=== PATIENT | female | born 1955 | race Caucasian/White ===

== ENCOUNTER 2021-10-26 07:57 | Outpatient (REF) | payer MEDICARE, SELFPAY ==
[2021-10-26 11:19] LABS: MANUAL DIFF FLAG NO
[2021-10-26 11:32] LABS: Basophils Absolute Auto 0.1 X10*3/uL (0.0-0.2); Basophils Percent Auto 0.9 % (0-2); Eosinophils Absolute Auto 0.1 X10*3/uL (0.0-0.4); Eosinophils Percent Auto 0.9 % (0-4); Hematocrit 41.2 % (37.0-47.0); Hemoglobin 13.1 g/dl (12.0-16.0); Imm Gran Abs Auto 0.03 X10*3/uL (0.00-0.03); Imm Gran Pct Auto 0.5 % (0.0-0.4); Lymphocytes Percent Auto 30.9 % (20-40); Mean Corpuscular HGB Conc 31.8 g/dl (31.0-35.0); Mean Corpuscular Hemoglobin 31.2 pg (27.0-33.0); Mean Corpuscular Volume 98.1 fL (80.0-98.0); Mean Platelet Volume 11.3 fL (9.4-12.3); Monocytes Absolute Auto 0.6 X10*3/uL (0.1-1.2); Monocytes Percent Auto 8.6 % (2-11); Neutrophils Absolute Auto 3.8 x10*3/uL (2.0-8.3); Neutrophils Percent Auto 58.2 % (45-73); Platelet Count 300 X10*3/uL (160-400); Red Cell Distribution Width 13.3 % (11.0-16.0); White Blood Count 6.6 X10*3/uL (4.8-10.8)
[2021-10-26 11:39] LABS: Appearance Urine Clear; Color Urine Yellow; Glucose Urine UA Negative (Negative); Leukocyte Esterase Urine Small (1+) (Negative); Nitrite Urine Negative (Negative); PH 5.5 (5.0-8.0); Specific Gravity - Urine 1.015 (1.005-1.025); Urine Blood Negative (Negative); Urine Ketones Negative (Negative); Urine Protein Negative (Neg-Trace)
[2021-10-26 11:44] LABS: Bacteria Urine None Seen (None Seen); Hyaline Casts Urine 0-2 /LPF (0-2); RBC Urine 0-2 /HPF (0-2); UACC Culture Trigger YES
[2021-10-26 12:07] LABS: Alanine Aminotransferase 25 U/L (0-31); Albumin Level 4.2 g/dL (3.5-5.0); Alkaline Phosphatase 112 U/L (39-117); Anion Gap 14 (12-20); Aspartate Amino Transferase 23 U/L (5-31); Bilirubin Total 1.1 mg/dL (0.0-1.0); Blood Urea Nitrogen 14 mg/dL (9-16); Calcium 9.2 mg/dL (8.4-10.2); Carbon Dioxide 25 mmol/L (22-29); Chloride 104 mmol/L (96-108); Cholesterol 184 mg/dL; Estimated Glomerular Filt Rate > 60; Glucose Fasting 93 mg/dL (60-99); HDL Cholesterol 59 mg/dL; LDL Cholesterol Calculated 104 mg/dl; Potassium 4.8 mmol/L (3.3-5.1); Sodium 138 mmol/L (135-145); Total Protein 6.8 g/dL (6.5-8.0); Triglycerides 106 mg/dL
[2021-10-26 12:10] LABS: TSH reflex Free T4 1.13 uIU/mL (0.32-4.0)
== END 2021-10-26 07:58 | disposition home or self-care (01) ==
LOC: HO.HMGCLDS 07:57
PROVIDERS: PCP Nurse Practitioner Family; Visit Provider Nurse Practitioner Family
DX: E78.5 Hyperlipidemia, unspecified (principal)
CPT/HCPCS: 36415; 80053; 80061; 81001; 84443; 85025; 87086

== ENCOUNTER → 2021-11-11 15:04 | Outpatient (REF) | payer MEDICARE, SELFPAY ==
--- NOTE | 2021-11-11 15:06 | CA_ITS ---
Transthoracic Echocardiogram Patient (Last, First, Middle): Mary Carmen Holbrook, Gender: Female Date of : 1955 Age: 66 Procedure Date: 11/11/2021 Procedure Type: Transthoracic Echocardiogram Location: OP Height: 154.94 cm Weight: 111.13 kg BSA: 2.06 m2 Heart Rate: 70 bpm BP: 115 / 65 mmHg Controls Project Engineer: SB Referring MD: Addi Reynoso [facility] Coremaker Supervisor: Dave Bronson MD Symptoms: R01.1 - Cardiac murmur, unspecified Study Quality: Technically Difficult/BSA ECG Rhythm: Sinus Conclusions: - 1. Normal LV systolic function with impaired relaxation filling pattern 2. Calcific aortic valve changes noted with increased gradient suggestive of early aortic stenosis 3. Severe mitral and calcification 4. No gross pericardial effusion Findings Left Ventricle Normal left ventricular size, thickness, and systolic function. The visually estimated ejection fraction is between 65-70%. Spectral Doppler is indicative of an impaired relaxation filling pattern. Right Ventricle Normal right ventricular cavity size and systolic function. Atria The left atrium is normal in size. There is no evidence of interatrial shunt. The right atrium is normal in size. Aortic Valve There is mild calcification of the aortic valve. The peak aortic gradient is 20 mmHg.The mean gradient is 11 mmHg. There is no aortic valve regurgitation. Mitral Valve There is mild anterior and severe posterior mitral leaflet thickening. There is severe mitral annular calcification. There is trace mitral valve regurgitation. There is no mitral valve stenosis. Pulmonic Valve The pulmonic valve was not well visualized. Tricuspid Valve The tricuspid valve was not well visualized. Tricuspid regurgitation envelope is inadequate for calculation of right ventricular systolic pressure. Normal right atrial pressure. Great Vessels The pulmonary artery was not well visualized. There is mild dilatation of the ascending aorta measuring 3.80 cm. Venous The inferior vena cava is normal in size and collapses greater than 50% with inspiration. Pericardium/Pleural There is no evidence of pericardial effusion. Prior Study Comparison No significant change compared to prior study dated: 09/25/2018. Measurements 2D Linear Measurements IVSd: 1.19 0.6-0.9/0.6-1.0 cm LVIDd: 3.99 3.9-5.3/4.2-5.9 cm LVIDd Index: 1.94 2.4-3.2/2.2-3.1 cm/m2 LVIDs: 2.65 2.0-3.6 cm LVPWd: 1.03 0.7-1.1 cm LA Diam: 4.00 2.7-3.8/3.0-4.0 cm LAIDs Index: 1.94 1.5-2.3 cm/m2 LV Mass: 183.00 67-162/88-224 g LV Mass Index: 88.84 43-95/49-115 g/m2 LVOT Diam: 2.40 3.0+(-)1.3 cm 2D Systolic Function EF 4C: 55.10 >55% EF 2C: 78.20 >55% EF BiP: 69.10 >55% Mitral Valve MV Pk E: 1.15 MV PK A: 1.18 MV Decel Time: 217.00 E/A: 1.00 E'Lateral: 7.07 E'Medial: 5.98 E/E' Med: 19.20 E/E' Lat: 16.30 PHT: 64.00 MVA PHT: 3.44 Decel Bacon: 5.31 Aortic Valve AoV Pk Dk: 2.23 AoV Mn Dk: 1.54 AoV VTI: 0.50 AoV Pk Grad: 20.00 Aov Mn Grad: 11.00 SAVI Cont.VTI: 2.81 LVOT LVOT Pk Dk: 1.53 LVOT Mn Dk: 1.08 LVOT VTI: 0.31 LVOT Pk Grad: 9.00 LVOT Mn Grad: 6.00 LVOT Diam: 2.40 LVOT Area: 4.52 Diastolic Function MV Pk E: 1.15 MV Pk A: 1.18 E/A: 1.00 E'Medial: 5.98 E/E' Med: 19.20 E' Laterial: 7.07 E/E' Lat: 16.30 Right Ventricle TAPSE (mm): 21.90 TVS' Dk: 12.40 Tricuspid Valve RA Press: 3.00 Great Vessels Aorta Sinus of Valsalva: 2.90 2.0-3.5 cm Ao Asc: 3.80 2.1-3.4 cm Ao Desc: 2.20 Pulmonary Veins Pulm Vein S/D 1.50 Pulmonary Valve PV Pk Dk: 0.87 Peak PV Grad: 3.00 Updated in Other Vendor System with Status of Final Dave Bronson MD electronically signed on 11/12/2021 11:45:05 AM with status of Final
== END ==
LOC: HO.CARD 15:04
PROVIDERS: PCP Nurse Practitioner Family; Visit Provider Nurse Practitioner Family
DX: R01.1 Cardiac murmur, unspecified (principal)
CPT/HCPCS: 93306

== ENCOUNTER 2022-02-18 07:33 | Outpatient (REF) | payer MEDICARE, SELFPAY ==
[2022-02-18 11:20] LABS: MANUAL DIFF FLAG NO
[2022-02-18 11:31] LABS: Appearance Urine Turbid; Color Urine Yellow; Glucose Urine UA Negative (Negative); Leukocyte Esterase Urine Trace (Negative); Nitrite Urine Negative (Negative); UMIC TRIGGER UACC YES; Urine Blood Negative (Negative); Urine Ketones Trace mg/dL (Negative); Urine Protein Negative (Neg-Trace)
[2022-02-18 11:40] LABS: Basophils Percent Auto 0.6 % (0-2); Eosinophils Percent Auto 0.5 % (0-4); Hematocrit 40.8 % (37.0-47.0); Hemoglobin 13.3 g/dl (12.0-16.0); Imm Gran Abs Auto 0.02 X10*3/uL (0.00-0.03); Imm Gran Pct Auto 0.3 % (0.0-0.4); Lymphocytes Percent Auto 31.6 % (20-40); Mean Corpuscular HGB Conc 32.6 g/dl (31.0-35.0); Mean Corpuscular Hemoglobin 31.7 pg (27.0-33.0); Mean Corpuscular Volume 97.4 fL (80.0-98.0); Monocytes Absolute Auto 0.6 X10*3/uL (0.1-1.2); Monocytes Percent Auto 8.8 % (2-11); Neutrophils Absolute Auto 3.6 x10*3/uL (2.0-8.3); Neutrophils Percent Auto 58.2 % (45-73); Platelet Count 315 X10*3/uL (160-400); Red Blood Count 4.19 X10*6/uL (4.20-5.50); White Blood Count 6.2 X10*3/uL (4.8-10.8)
[2022-02-18 11:43] LABS: Bacteria Urine None Seen (None Seen); Hyaline Casts Urine 0-2 /LPF (0-2); RBC Urine 0-2 /HPF (0-2); WBC Urine 0-5 /HPF (0-5)
[2022-02-18 13:07] LABS: Alanine Aminotransferase 28 U/L (0-31); Albumin Level 4.3 g/dL (3.5-5.0); Alkaline Phosphatase 110 U/L (39-117); Anion Gap 14 (12-20); Aspartate Amino Transferase 25 U/L (5-31); Bilirubin Total 1.3 mg/dL (0.0-1.0); Blood Urea Nitrogen 11 mg/dL (9-16); Calcium 9.3 mg/dL (8.4-10.2); Carbon Dioxide 24 mmol/L (22-29); Chloride 105 mmol/L (96-108); Cholesterol 175 mg/dL; Estimated Glomerular Filt Rate > 60; Glucose Fasting 96 mg/dL (60-99); HDL Cholesterol 60 mg/dL; LDL Cholesterol Calculated 95 mg/dl; Potassium 4.3 mmol/L (3.3-5.1); Sodium 139 mmol/L (135-145); TSH reflex Free T4 1.19 uIU/mL (0.32-4.0); Total Protein 6.9 g/dL (6.5-8.0); Triglycerides 100 mg/dL
== END 2022-02-18 07:34 | disposition home or self-care (01) ==
LOC: HO.HMGCLDS 07:33
PROVIDERS: PCP Nurse Practitioner Family; Visit Provider Nurse Practitioner Family
DX: E78.5 Hyperlipidemia, unspecified (principal)
CPT/HCPCS: 36415; 80053; 80061; 81001; 84443; 85025

== ENCOUNTER 2022-05-20 08:36 | Outpatient (REF) | payer MEDICARE, SELFPAY ==
--- NOTE | ~2022-05-20 | MM_ITS ---
EXAMINATION: BONE DENSITOMETRY CLINICAL INDICATION: Asymptomatic menopausal state. COMPARISON: None (current study represents initial baseline exam). TECHNIQUE: Using a YuMe DXA System (software version: 13.1) manufactured by [employer], dual-energy x-ray absorptiometry was performed of the lumbar spine and left hip. The images are of good technical quality. Summary results are attached. FINDINGS: AP SPINE L1-L4: BMD 0.984 g/cm2, Z-score -1.2, T-score -1.6, osteopenia. LEFT FEMUR, NECK: BMD 0.736 g/cm2, Z-score -1.4, T-score -2.2, osteopenia. LEFT FEMUR, TOTAL: BMD 0.890 g/cm2, Z-score -0.5, T-score -0.9, normal. IDENTIFIED RISK FACTORS: Height loss. Secondary osteoporosis (early menopause). HISTORY OF FRACTURE: None listed. MEDICATIONS: Calcium supplement and/or multivitamin. Vitamin D. MM/XR DEXA axial skeleton IMPRESSION: 1. DIAGNOSIS: Osteopenia based on the lowest T-score value of -2.2 in the femoral neck applying World Health Organization criteria. 2. 10-YEAR FRACTURE RISK PREDICTION, FRAX: Major osteoporotic fracture (clinical spine, forearm, hip or shoulder) 9.8%. Hip fracture 1.6%. 3. Treatment Recommendations: NOF guidelines recommend consideration for treatment in postmenopausal women and men age 50 and older presenting with the following: -A hip or vertebral (clinical or morphometric) fracture. -T-score less than or equal to -2.5 at the femoral neck or spine after appropriate evaluation to exclude secondary causes. -Low bone mass at the hip or spine and a 10-year fracture probability by FRAX of greater than or equal to 3% for hip fracture or greater than or equal to 20% for major osteoporotic fracture based on the [place] adapted WHO algorithm. 4. Other Recommendations: All treatment decisions require clinical judgment and consideration of individual patient factors, including patient preferences, comorbidities, previous drug use, risk factors not captured in the FRAX model (e.g. frailty, falls, vitamin D deficiency, increased bone turnover, interval significant decline in bone density) and possible under or overestimation of fracture risk by FRAX. Additional medical evaluation for secondary cause of low bone mineral density may be appropriate. FUTURE SCAN RECOMMENDATION: People with diagnosed cases of osteoporosis or at high risk for fracture should have regular bone mineral density tests. For patients eligible for Medicare, routine testing is allowed once every 2 years. The testing frequency can be increased to one year for patients who have rapidly progressing disease, those who are receiving or discontinuing medical therapy to restore bone mass, or have additional risk factors.
== END 2022-05-20 08:37 | disposition home or self-care (01) ==
LOC: HO.MAMMO 08:36
PROVIDERS: PCP Nurse Practitioner Family; Visit Provider Nurse Practitioner Family
DX: Z13.820 Encounter for screening for osteoporosis (principal); Z78.0 Asymptomatic menopausal state
CPT/HCPCS: 77080

== ENCOUNTER → 2022-06-30 09:33 | Outpatient (BNVA) | payer MEDICARE, SELFPAY | PROVIDERS: PCP Nurse Practitioner Family; Visit Provider Physician Assistant | DX: Z12.11 Encounter for screening for malignant neoplasm of colon (principal) | CPT/HCPCS: 99202 ==

== ENCOUNTER 2022-07-08 09:03 | Outpatient (REF) | payer MEDICARE, SELFPAY ==
[2022-07-08 11:12] LABS: MANUAL DIFF FLAG NO
[2022-07-08 11:25] LABS: Appearance Urine Clear; Color Urine Yellow; Glucose Urine UA Negative (Negative); Leukocyte Esterase Urine Negative (Negative); Nitrite Urine Negative (Negative); PH 5.5 (5.0-9.0); Specific Gravity - Urine 1.025 (1.005-1.025); Urine Blood Negative (Negative); Urine Ketones Negative (Negative); Urine Protein Negative (Neg-Trace)
[2022-07-08 11:32] LABS: Basophils Absolute Auto 0.1 X10*3/uL (0.0-0.2); Basophils Percent Auto 0.7 % (0-2); Eosinophils Percent Auto 0.4 % (0-4); Hematocrit 41.9 % (37.0-47.0); Hemoglobin 13.2 g/dl (12.0-16.0); Imm Gran Abs Auto 0.02 X10*3/uL (0.00-0.03); Imm Gran Pct Auto 0.3 % (0.0-0.4); Lymphocytes Absolute Auto 2.3 X10*3/uL (1.2-4.9); Lymphocytes Percent Auto 32.2 % (20-40); Mean Corpuscular HGB Conc 31.5 g/dl (31.0-35.0); Mean Corpuscular Hemoglobin 31.4 pg (27.0-33.0); Mean Corpuscular Volume 99.8 fL (80.0-98.0); Mean Platelet Volume 11.3 fL (9.4-12.3); Monocytes Absolute Auto 0.6 X10*3/uL (0.1-1.2); Monocytes Percent Auto 8.3 % (2-11); Neutrophils Absolute Auto 4.2 x10*3/uL (2.0-8.3); Neutrophils Percent Auto 58.1 % (45-73); Platelet Count 308 X10*3/uL (160-400); Red Cell Distribution Width 13.2 % (11.0-16.0); White Blood Count 7.2 X10*3/uL (4.8-10.8)
[2022-07-08 12:50] LABS: Alanine Aminotransferase 23 U/L (0-31); Albumin Level 4.2 g/dL (3.5-5.0); Alkaline Phosphatase 104 U/L (39-117); Anion Gap 15 (12-20); Aspartate Amino Transferase 19 U/L (5-31); Blood Urea Nitrogen 13 mg/dL (9-16); Calcium 9.1 mg/dL (8.4-10.2); Carbon Dioxide 25 mmol/L (22-29); Chloride 107 mmol/L (96-108); Cholesterol 175 mg/dL; Estimated Glomerular Filt Rate > 60; Glucose Fasting 92 mg/dL (60-99); HDL Cholesterol 56 mg/dL; LDL Cholesterol Calculated 102 mg/dl; Potassium 4.9 mmol/L (3.3-5.1); Sodium 142 mmol/L (135-145); Total Protein 6.7 g/dL (6.5-8.0); Triglycerides 87 mg/dL
[2022-07-08 12:53] LABS: TSH reflex Free T4 1.47 uIU/mL (0.32-4.0); Vitamin D 25-OH Total 47.3 ng/mL (>30)
== END 2022-07-08 09:04 | disposition home or self-care (01) ==
LOC: HO.HMGCLDS 09:03
PROVIDERS: PCP Nurse Practitioner Family; Visit Provider Nurse Practitioner Family
DX: E78.5 Hyperlipidemia, unspecified (principal); Z78.0 Asymptomatic menopausal state; E55.9 Vitamin D deficiency, unspecified
CPT/HCPCS: 36415; 80053; 80061; 81003; 82306; 84443; 85025

== ENCOUNTER 2022-11-09 09:30 | Outpatient (AMB) | payer MEDICARE, SELFPAY ==
--- NOTE | 2022-11-09 09:37 | A.OFFPC_ITS ---
Vital Signs 11/09/22 09:38 Height 5 ft 3 in Weight 270 lb 2 oz BMI 47.8 BP 138/84 Blood Pressure Location Lt brachial Position Sitting Pulse 76 Pulse Source Pulse Oximeter Pulse Oximetry (%) 98 Oxygen Delivery Method Room Air Intake Visit Reasons: 6m HTN Intake Note: pt is here for a 6 month follow up for HTN Allergies white faced hornets Allergy (Unknown, Uncoded 11/09/22 09:51) anaphylaxis Medication List - Last Reconciled 11/09/22 by SHANAE Corea albuterol sulfate 90 mcg/actuation (Ventolin HFA) 2 puffs inhalation Q6H PRN atorvastatin 40 mg PO BEDTIME biotin 10 mg PO DAILY bisacodyl (Dulcolax (bisacodyl)) 10 mg (2 x 5 mg) PO ONCE 1 day calcium carbonate-vitamin D3 600 mg-12.5 mcg (500 unit) (Calcium 600 with Vitamin D3) 1 cap PO BID 90 days levothyroxine 88 mcg PO DAILY polyethylene glycol 3350 (Miralax) 238 grams PO ONCE PRN 1 day Tobacco use date assessed: 11/09/22 Fall risk assessment: No Falls in past year Last assessed Fall Risk: 11/09/22 Dental Screening Dental Screen Date: 11/09/22 Did you have a dental visit in the last 12 months?: No Did you have a dental problem in the last 6 months where you did not have access to dental care?: No Was dental information given to patient?: No HPI 6m HTN HPI Details Dyslipisemia: Managed with atorvastatin 40mg. Will order labs. Denies chest pain, shortness of breath, and dizziness. Pt also reports weight gain. She states that she is eating well and drinks plenty of water. Will have pt utilize a food diary and check labs (thyroid). [facility] Medical History COVID-19 Sleep apnea Social History Housing: Condominium Patient Tobacco Use Status: Former Tobacco user Quit Date: quit 40 years ago e-Cigarette/Vaping Use: Never Used Second Hand Smoke Exposure: No service: No 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al status: employed and retired 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: [employer] 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al exposures/hazards: Yes Cognitive needs: No Hearing needs: No Vision needs: No Questionnaire Thrive Questionnaire Date Thrive assessed: 10/06/21 QUAN-7 AMB Questionnaire QUAN-7 Date QUAN - 7 assessed: 10/06/21 Source: Developed by Drs. J Luis Kern, Fara Harmon, Lamont Lerma and colleagues, with an educational gwen from [employer]. Review of Systems Const Reports as per HPI Physical exam (Primary Care) Vital Signs: Last Vital Signs Pulse 76 11/09/22 09:38 BP 138/84 11/09/22 09:38 Pulse Ox 98 11/09/22 09:38 Oxygen Delivery Method Room Air 11/09/22 09:38 BMI result Body Mass Index 47.8 Tobacco/Smoking Status: Tobacco use Status Tobacco use date assessed 11/09/22 11/09/22 09:45 Patient Tobacco Use Status Former Tobacco user 11/09/22 09:45 e-Cigarette/Vaping Use Never Used 11/09/22 09:45 Thrive Assessment: Date of Thrive Assessment Date Thrive assessed 10/06/21 11/09/22 09:45 Const General: cooperative Nutritional Appearance: obese morbidly obese Orientation/consciousness: patient oriented x3 Resp Effort & Inspection: normal respiratory effort Auscultation: clear to auscultation bilaterally Cardio Rate: regular rate Rhythm: regular rhythm Heart sounds: S1 normal heart sound present and S2 normal heart sound present Neuro General: patient oriented x3 Psych Appearance: grossly normal Mental Status: mental status grossly normal Speech and movement: Normal speech and movement present Affect: normal affect Attitude: cooperative Thought process: Normal thought process present Thought content: Normal thought content present Insight: Good insight present (Psych) Judgement: Good judgement present (Psych) Assessment and Plan Assessment & Plan (1) Obesity: Code(s): E66.9 - Obesity, unspecified (2) Dyslipidemia: Code(s): E78.5 - Hyperlipidemia, unspecified Plan The patient agreed to the use of a outside medical sales representative for this encounter. Scribed for SHANAE Fuller by Nayely Mehta outside medical sales representative, on 11/09/2022 at 09:55 EST. Orders: Orders Comprehensive Hassell. Panel Fast Today E66.9 - Obesity, unspecified, E78.5 - Hyperlipidemia, unspecified Lipid Panel Today E66.9 - Obesity, unspecified, E78.5 - Hyperlipidemia, unspecified TSH reflex Free T4 Today E66.9 - Obesity, unspecified, E78.5 - Hyperlipidemia, unspecified Complete Blood Count Auto Diff Today E66.9 - Obesity, unspecified, E78.5 - Hyperlipidemia, unspecified UA CC w/rflx Micro + Cult Today E66.9 - Obesity, unspecified, E78.5 - Hyperlipidemia, unspecified Coding Level of Care Code Est Pt Level 3 (85501) Diagnoses Obesity E66.9 Dyslipidemia E78.5
[2022-11-09 09:38] VITALS: BP 138/84; PULSE 76; O2SAT 98; BMI 47.8
== END 2022-11-09 10:05 | disposition home or self-care (01) ==
PROVIDERS: Visit Provider Nurse Practitioner Family
DX: E78.5 Hyperlipidemia, unspecified (principal); E66.9 Obesity, unspecified; Z68.42 Body mass index [BMI] 45.0-49.9, adult
CPT/HCPCS: 99213

== ENCOUNTER 2022-12-21 07:38 | Outpatient (REF) | payer MEDICARE, SELFPAY ==
[2022-12-21 11:33] LABS: MANUAL DIFF FLAG NO
[2022-12-21 11:55] LABS: Basophils Percent Auto 0.6 % (0-2); Eosinophils Percent Auto 0.5 % (0-4); Hematocrit 41.9 % (37.0-47.0); Hemoglobin 13.4 g/dl (12.0-16.0); Imm Gran Abs Auto 0.03 X10*3/uL (0.00-0.03); Imm Gran Pct Auto 0.5 % (0.0-0.4); Lymphocytes Absolute Auto 1.9 X10*3/uL (1.2-4.9); Lymphocytes Percent Auto 30.2 % (20-40); Mean Corpuscular Hemoglobin 32.4 pg (27.0-33.0); Mean Corpuscular Volume 101.2 fL (80.0-98.0); Mean Platelet Volume 11.5 fL (9.4-12.3); Monocytes Absolute Auto 0.5 X10*3/uL (0.1-1.2); Monocytes Percent Auto 8.2 % (2-11); Neutrophils Absolute Auto 3.8 x10*3/uL (2.0-8.3); Platelet Count 294 X10*3/uL (160-400); Red Blood Count 4.14 X10*6/uL (4.20-5.50); Red Cell Distribution Width 13.1 % (11.0-16.0); White Blood Count 6.4 X10*3/uL (4.8-10.8)
[2022-12-21 12:04] LABS: Appearance Urine Clear; Color Urine Yellow; Glucose Urine UA Negative (Negative); Leukocyte Esterase Urine Moderate (2+) (Negative); Nitrite Urine Negative (Negative); PH 5.5 (5.0-9.0); Specific Gravity - Urine 1.015 (1.005-1.025); UMIC TRIGGER UACC YES; Urine Blood Negative (Negative); Urine Ketones Negative (Negative); Urine Protein Negative (Neg-Trace)
[2022-12-21 12:08] LABS: Bacteria Urine None Seen (None Seen); Hyaline Casts Urine 0-2 /LPF (0-2); RBC Urine 0-2 /HPF (0-2); UACC Culture Trigger YES
[2022-12-21 12:27] LABS: Alanine Aminotransferase 31 U/L (0-31); Albumin Level 4.3 g/dL (3.5-5.0); Alkaline Phosphatase 94 U/L (39-117); Anion Gap 15 (12-20); Aspartate Amino Transferase 27 U/L (5-31); Bilirubin Total 1.1 mg/dL (0.0-1.0); Blood Urea Nitrogen 13 mg/dL (9-16); Calcium 9.6 mg/dL (8.4-10.2); Carbon Dioxide 23 mmol/L (22-29); Chloride 106 mmol/L (96-108); Cholesterol 176 mg/dL (<200); Estimated Glomerular Filt Rate > 60; Glucose Fasting 95 mg/dL (60-99); HDL Cholesterol 59 mg/dL (>40); LDL Cholesterol Calculated 94 mg/dL (<100); Potassium 4.3 mmol/L (3.3-5.1); Sodium 140 mmol/L (135-145); TSH reflex Free T4 1.32 uIU/mL (0.32-4.0); Total Protein 7.3 g/dL (6.5-8.0); Triglycerides 118 mg/dL (<150)
== END 2022-12-21 07:39 | disposition home or self-care (01) ==
LOC: HO.HMGCLDS 07:38
PROVIDERS: PCP Nurse Practitioner Family; Visit Provider Nurse Practitioner Family
DX: E66.9 Obesity, unspecified (principal); E78.5 Hyperlipidemia, unspecified; R30.0 Dysuria
CPT/HCPCS: 36415; 80053; 80061; 81001; 81003; 84443; 85025; 87086

== ENCOUNTER 2023-01-25 07:31 | Day surgery (SDC) | payer MEDICARE, SELFPAY ==
[2023-01-21 10:55] VITALS: BMI 47.1
--- NOTE | 2023-01-24 10:30 | P.CONAN_ITS ---
Documented by User: Elizabeth Rivera NP 01/24/23 10:34 HPI - Anesthesia Eval Consult details Narrative: 67yo F for Colonoscopy PMFSH Active Problems Active Problems: All Active Problems (Updated 05/11/22 @ 09:16 by Addi Reynoso, [facility]) Postmenopause (Acute) Screening for colon cancer (Acute) Aortic stenosis (Acute) Obesity (Acute) Systolic murmur (Acute) Dyslipidemia (Acute) Past Medical History Medical History Sleep apnea COVID-19 Social History [facility] Patient Tobacco Use Status: Former Tobacco user Quit Date: quit 40 years ago e-Cigarette/Vaping Use: Never Used Second Hand Smoke Exposure: No Use of substances other than those prescribed or required for medical reasons: No Are you DNR?: No Advance Directives: No Advance Directives Information Provided: Yes service: No 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al status: employed and retired 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: [employer] services 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al exposures/hazards: Yes Cognitive needs: No Hearing needs: No Vision needs: No Meds Allergies Allergy/AdvReac Type Severity Reaction Status Date / Time white faced hornets Allergy Unknown anaphylaxis Uncoded 11/09/22 09:51 Home Medications Medication Instructions Recorded Confirmed Last Taken Type biotin 5 mg capsule 10 mg PO DAILY 11/09/22 11/09/22 Unknown History Exam Height,Weight and Vital Signs: Height 5 ft 3 in Weight 120.656 kg Pertinent Lab Results Pertinent Lab Results: Laboratory Tests 12/21/22 07:46 WBC 6.4 Hgb 13.4 Hct 41.9 Plt Count 294 Sodium 140 Potassium 4.3 Chloride 106 Carbon Dioxide 23 BUN 13 Creatinine 0.72 Narrative Narrative: ECHO 2021 Conclusions: - 1. Normal LV systolic function with impaired relaxation filling pattern 2. Calcific aortic valve changes noted with increased gradient suggestive of early aortic stenosis 3. Severe mitral and calcification 4. No gross pericardial effusion Assessment and Plan Assessment Anesthesia Assessment: Chart Reviewed Documented by User: Lena Flood MD 01/25/23 08:42 PMFSH Past Medical History Medical History Sleep apnea COVID-19 Family History Family history of problems with anesthesia: No Surgical History History of Problems with Anesthesia: No Social History Social History Housing: [facility] Patient Tobacco Use Status: Former Tobacco user Quit Date: quit 40 years ago e-Cigarette/Vaping Use: Never Used Second Hand Smoke Exposure: No Use of substances other than those prescribed or required for medical reasons: No Are you DNR?: No Advance Directives: No Advance Directives Information Provided: Yes service: No 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al status: employed and retired 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: [employer] services 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al exposures/hazards: Yes Cognitive needs: No Hearing needs: No Vision needs: No Meds Allergies Allergy/AdvReac Type Severity Reaction Status Date / Time white faced hornets Allergy Unknown anaphylaxis Uncoded 11/09/22 09:51 Home Medications Medication Instructions Recorded Confirmed Last Taken Type biotin 5 mg capsule 10 mg PO DAILY 11/09/22 11/09/22 Unknown History Exam Airway Mallampati Class: III TM Dist: >3cm Neck ROM: Limited Heart: rrr Lungs: cta Assessment and Plan Assessment Anesthesia Assessment: Anesthesia Plan Discussed Final Anesthetic Review Family History of Problems with Anesthesia: No History of Problems with Anesthesia: No NPO: Yes ASA Class: III Final Preanesthetic Review: No Changes in Pt Med Stat, Meds/Allgs Chart Reviewed, Consent Obtained/Reviewed and Anes Risks/Benef Reviewed Patient Risk: Intermediate Procedure Risk: Low Anesthetic Plan Anesthetic Plan: MAC: Disposition: Standard PACU
[2023-01-25 08:15] VITALS: BMI 46.2
[2023-01-25 08:18] VITALS: BP 142/85; PULSE 68; RESP 16; TEMP 36.8; O2SAT 97
--- NOTE | 2023-01-25 08:36 | MHC.SHP ---
Pre-Procedural Eval Section A Date of Service: 01/25/23 Section B Chief Complaint: Encounter for screening for malignant neoplasm Relevant Family History (Specify if Yes): No Relevant Social History: None Present Medications: see Short Stay Collaborative assessment Medical History: Significant History (COVID-19 Sleep apnea, aortic stenosis ) History of Previous Operations: Relevant previous surgery/procedure and date(s) (tubal ligation) Allergies: Allergies Allergy/AdvReac Type Severity Reaction Status Date / Time white faced hornets Allergy Unknown anaphylaxis Uncoded 11/09/22 09:51 Review of Systems Sugical H&P ROS: Negative: Constitution, Cardiovascular, Respiratory, Neurological, Psychiatric, Hem-Onc, Allergic/Immunologic, Gastrointestinal, Genitourinary, Musculoskeletal, Integumentary, Endocrine and Eyes/Ears/Nose/Throat Exam Surgical H&P Exam: Normal: HEENT, Normal: Lungs, Normal: Extremities, Normal: Abdomen, Normal: Skin and Normal: Neurological and Significant Findings: Heart (murmur) Plan Diagnosis/Plan: Unchanged I have reviewed the history and physical and performed a pertinent physical examination on my patient. No changes have occurred unless specified. Time Spent With Patient Time: Total time managing care of this patient today ____ minutes.
--- NOTE | 2023-01-25 09:10 | P.OP_ITS ---
Operative Note Operative Note Date of Service: 01/25/23 Narrative: Operative Information Procedure Description: Colonoscopy Indication: screening Anesthesia: MAC COLONOSCOPY Instrument: Olympus variable stiffness pediatric scope 190L Colonoscopy Monitoring: Vital signs and clinical assessment, continuous EKG monitoring, Pulse oximetry, Carbon Dioxide monitoring and blood pressure monitoring were done throughout the procedure. Colon withdrawal time was 12 minutes. Procedure: The patient was placed in the left lateral decubitis position and pre-procedure medications were administered. After a digital rectal examination of the ano-rectum, the video colonoscope was inserted into the rectum and advanced through the colon to the cecum/TI. The colonoscope was slowly withdrawn in a retrograde panoramic fashion and the colon mucosa was carefully examined including a retroflexed view of the rectum. Findings and interventions are described below. Procedure Difficulty: easy Findings: Terminal Ileum-normal Melanosis coli noted Cecum: flat polyp 5-6 mm removed with cold forceps Ascending Colon: normal Transverse Colon -normal Descending Colon:normal Sigmoid Colon:mild diverticulosis, 3-5 mm sessile polyp removed with cold forceps Rectum: Retroflexion with small internal hemorrhoids, grade I Anorectum - normal Colon preparation: [place] Bowel Preparation Scale Right colon; 2 Transverse colon: 2 Left colon; 3 (0 = Unprepared colon segment with mucosa not seen due to solid stool that cannot be cleared. 1 = Portion of mucosa of the colon segment seen, but other areas of the colon segment not well seen due to staining, residual stool and/or opaque liquid. 2 = Minor amount of residual staining, small fragments of stool and/or opaque liquid, but mucosa of colon segment seen well. 3 = Entire mucosa of colon segment seen well with no residual staining, small fragments of stool or opaque liquid) Impression and Post Procedure Diagnosis: polyps internal hemorrhoids diverticular disease melanosis coli Plan: High fiber diet leaflet Avoid straining at stool, epsom salts and sitz bath, anusol supps or cream Repeat Colonoscopy in 5-7 years if adenomatous polyps, 10 yrs if hyperplastic or earlier if clinically indicated Above findings were reviewed with the patient and relevant handouts were provided if indicated.
[2023-01-25 09:15] VITALS: BP 138/70; PULSE 63; RESP 20; TEMP 36.1; O2SAT 97
[2023-01-25 09:30] VITALS: BP 147/80; PULSE 61; RESP 20; TEMP 36.1; O2SAT 97
== END 2023-01-25 11:27 | disposition home or self-care (01) ==
PROVIDERS: PCP Nurse Practitioner Family; Visit Provider Internal Medicine Gastroenterology
PROC: 0DJD8ZZ Inspection of Lower Intestinal Tract, Via Natural or Artificial Opening Endoscopic (ICD-10-PCS; CPT 45378; principal; 2023-01-25 09:10)
DX: Z12.11 Encounter for screening for malignant neoplasm of colon (principal); D12.5 Benign neoplasm of sigmoid colon; K63.89 Other specified diseases of intestine; K57.30 Diverticulosis of large intestine without perforation or abscess without bleeding; K64.0 First degree hemorrhoids; E78.5 Hyperlipidemia, unspecified; I35.0 Nonrheumatic aortic (valve) stenosis; R01.1 Cardiac murmur, unspecified; Z87.891 Personal history of nicotine dependence; G47.33 Obstructive sleep apnea (adult) (pediatric); E66.9 Obesity, unspecified; Z68.42 Body mass index [BMI] 45.0-49.9, adult; Z79.899 Other long term (current) drug therapy
CPT/HCPCS: 45380; 88305; J2704

== ENCOUNTER → 2023-01-25 07:31 | Outpatient (BNV) | payer MEDICARE, SELFPAY | PROVIDERS: PCP Nurse Practitioner Family; Visit Provider Internal Medicine Gastroenterology | DX: Z12.11 Encounter for screening for malignant neoplasm of colon (principal); D12.0 Benign neoplasm of cecum; D12.5 Benign neoplasm of sigmoid colon; K64.0 First degree hemorrhoids; K63.89 Other specified diseases of intestine; K57.30 Diverticulosis of large intestine without perforation or abscess without bleeding | CPT/HCPCS: 45380 ==

== ENCOUNTER 2023-02-09 08:43 | Outpatient (AMB) | payer MEDICARE, SELFPAY ==
--- NOTE | 2023-02-09 08:51 | MHC.OFFVIS ---
Intake Vital Signs 02/09/23 08:52 Height 5 ft 3 in Weight 255 lb BMI 45.2 BP 126/96 H Blood Pressure Location Lt brachial Position Sitting Pulse 91 Intake Visit Reasons: s/p colon Jung Intake Note: Patient follow up for Colonoscopy results. Patient denies any GI issues. Accounts Receivable Manager Required: No Accompanied by: Self / Same As Patient Allergies white faced hornets Allergy (Unknown, Uncoded 11/09/22 09:51) anaphylaxis HPI HPI Comments History of Present Illness Details A 67 y/o female f/u after colonoscopy, tolerated well she has no GI concerns Reviewed procedure report, pathology and recommendations Discussing findings melanosiscoli-she was drinking elder cox juice that Dr. Jung recommended she not drink daily, she has followed his advice She has good appetite, normal bowel pattern No nausea, vomiting, hematemesis, hematochezia fever chills PFSH Medical History (Updated 02/09/23 @ 09:46 by Lotus Gtz PA-C) Sleep apnea COVID-19 Surgical History Hx of colonoscopy Social History Housing: [facility] Patient Tobacco Use Status: Former Tobacco user Quit Date: quit 40 years ago e-Cigarette/Vaping Use: Never Used Second Hand Smoke Exposure: No service: No 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al status: employed and retired 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al exposures/hazards: Yes Cognitive needs: No Hearing needs: No Vision needs: No Review of Systems Const All systems reviewed & are unremarkable except as noted in HPI and below Card Denies chest pain and Denies dyspnea Resp Denies dyspnea Physical Exam Vital Signs: Last Vital Signs Pulse 91 02/09/23 08:52 BP 126/96 H 02/09/23 08:52 BMI result Body Mass Index 45.2 Const General: cooperative, healthy appearing and no acute distress Orientation/consciousness: patient oriented x3 Limitations: no limitations Eyes Sclerae: sclerae normal Resp Effort & Inspection: normal respiratory effort and able to speak in complete sentences Skin General skin exam: no rashes or lesions noted Neuro General: patient oriented x3 Extrem General: Yes full ROM Psych Appearance: well kempt Speech and movement: Clear speech present Affect: normal affect Attitude: cooperative Thought process: Normal thought process present Thought content: Normal thought content present Results Reviewed Results Reviewed: Impression and Post Procedure Diagnosis: polyps internal hemorrhoids diverticular disease melanosis coli Plan: High fiber diet leaflet Avoid straining at stool, epsom salts and sitz bath, anusol supps or cream Repeat Colonoscopy in 5-7 years if adenomatous polyps, 10 yrs if hyperplastic or earlier if clinically indicated Name: Mary Carmen Holbrook Age/Sex: 67/F Attending: Enzo Jung MD : 1955 Submitted by: Enzo Jung MD [facility] #: [id number] Status: [facility] Collected: 01/25/23 Location: [facility] Received: 01/25/23 Diagnosis Colon, cecal polyp: Serrated polyp without dysplasia, cannot exclude sessile serrated lesion/polyp. Colon, sigmoid, polyp: Tubular adenoma; negative for high-grade dysplasia and carcinoma. Comment: Both biopsies have focal lamina propria pigmented macrophages consistent with melanosis coli. Clinical History Pre-Op Dx: Melanosis, screening Post-Op Dx: Melanosis coli, hemorrhoids, diverticulosis, polyps Microscopic Description Microscopic sections reviewed. Material Received A. Cecum polypectomy B. Sigmoid colon polyp Gross Description Received in 2 parts. Part A: Received in formalin labeled ?cecum polypectomy? are 2 pizarro-pink irregular tissue fragments measuring 0.1 and 0.2 cm, submitted in toto in a cassette labeled A. Part B: Received in formalin labeled ?sigmoid colon polyp? are 2 pizarro-pink irregular tissue fragments measuring 0.15 and 0.25 cm, submitted in toto in a cassette labeled B. CEDS Copies To Addi Reynoso [address] [facility] [address], [place] [id number] Enzo Jung MD Patient: Mary Carmen Holbrook Age/Sex: 67/F MR#: [id number] Page 1 of 2 Assessment & Plan Assessment & Plan (1) Sessile serrated polyp of colon: Comment: A very pleasant 67-year-old female follows up after recent colonoscopy with polypectomy Code(s): D12.6 - Benign neoplasm of colon, unspecified Plan: 5 year repeat (2) Tubular adenoma of colon: Code(s): D12.6 - Benign neoplasm of colon, unspecified Plan: Repeat 5 year asymptomatic colonoscopy Plan Repeat asymptomatic colonoscopy 5 Stay well hydrated High-fiber diet Patient Instructions: 5 year colon HFD Maintain well hydration Diverticulosis / diverticulitis ER protocol reviewed Coding Level of Care Code Est Pt Level 3 (01535) Diagnoses Sessile serrated polyp of colon D12.6 Tubular adenoma of colon D12.6 Time Spent (min) 30
[2023-02-09 08:52] VITALS: BP 126/96; PULSE 91; BMI 45.2
== END 2023-02-09 10:25 | disposition home or self-care (01) ==
PROVIDERS: PCP Nurse Practitioner Family; Visit Provider Physician Assistant
DX: D12.6 Benign neoplasm of colon, unspecified (principal)
CPT/HCPCS: 99213

== ENCOUNTER → 2023-02-09 08:43 | Outpatient (BNVA) | payer MEDICARE, SELFPAY | PROVIDERS: PCP Nurse Practitioner Family; Visit Provider Physician Assistant | DX: D12.6 Benign neoplasm of colon, unspecified (principal) | CPT/HCPCS: 99212 ==

== ENCOUNTER 2023-03-09 08:46 | Outpatient (AMB) | payer MEDICARE, SELFPAY ==
--- NOTE | 2023-03-09 08:53 | MHC.PC.OV ---
Vital Signs 03/09/23 08:54 Height 5 ft 3 in Weight 265 lb 4 oz BMI 47.0 BP 130/80 Blood Pressure Location Rt brachial Position Sitting Pulse 68 Pulse Source Pulse Oximeter Pulse Oximetry (%) 98 Oxygen Delivery Method Room Air Intake Visit Reasons: Annual PE Intake Note: Patient here for physical exam. no new issues or concerns. Allergies white faced hornets Allergy (Unknown, Uncoded 03/09/23 08:55) anaphylaxis Medication List - Last Reconciled 03/09/23 by SHANAE Corea albuterol sulfate 90 mcg/actuation (Ventolin HFA) 2 puffs inhalation Q6H PRN atorvastatin 40 mg PO BEDTIME biotin 10 mg PO DAILY calcium carbonate-vitamin D3 600 mg-12.5 mcg (500 unit) (Calcium 600 with Vitamin D3) 1 cap PO BID 90 days levothyroxine 88 mcg PO DAILY lorazepam 0.5 mg PO BEDTIME PRN Tobacco use date assessed: 03/09/23 Fall risk assessment: No Falls in past year Last assessed Fall Risk: 03/09/23 Dental Screening Dental Screen Date: 03/09/23 Did you have a dental visit in the last 12 months?: No Did you have a dental problem in the last 6 months where you did not have access to dental care?: No Was dental information given to patient?: Patient has dentist HPI Annual PE HPI Details pt is here for a PE. Colon screen is up to date. Pt has a mammo scheduled. Pt wears a cpap, using it nightly. Bone density is up to date. Pt has really been working on her diet, keeping a food diary. Will have her cut back on morning sausage consumption, will refer to nutrition for dietary assistance (for weight loss). [facility] Medical History Sleep apnea COVID-19 Surgical History Hx of colonoscopy Social [facility] Tobacco Use Status: Former Tobacco user Quit Date: quit 40 years ago e-Cigarette/Vaping Use: Never Used Second Hand Smoke Exposure: No service: No 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al status: employed and retired 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: [employer] 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al exposures/hazards: Yes Cognitive needs: No Hearing needs: No Vision needs: No Questionnaire PHQ-9 Over the last 2 weeks, how often have you been bothered by any of the following problems? 1. Little interest or pleasure in doing things: not at all 2. Feeling down, depressed, or hopeless: not at all 3. Trouble falling or staying asleep, or sleeping too much: not at all 4. Feeling tired or having little energy: not at all 5. Poor appetite or overeating: not at all 6. Feeling bad about yourself - or that you are a failure or have let yourself or your family down: not at all 7. Trouble concentrating on things, such as reading the newspaper or watching television: not at all 8. Moving or speaking so slowly that other people could have noticed. Or the opposite - being so fidgety or restless that you have been moving around a lot more than usual: not at all 9. Thoughts that you would be better off or of hurting yourself in some way: not at all Total score: 0 Depression Screening Interpretation: Negative Depression Screening Done: Yes 38331 - PHQ-9 Billing: Yes Source: Developed by Drs. J Luis Kern, Fara Harmon, Lamont Lerma and colleagues, with an educational gwen from [employer]. Thrive Questionnaire Date Thrive assessed: 03/09/23 I am a: Patient What is your living situation today?: I have a steady place to live Within the past 12 months, did the food you bought not last and you didn't have the money to get more?: Never true Within the past 12 months, did you worry whether your food would run out before you got money to buy more?: Never true Do you have trouble paying for medicines?: No Do you have trouble getting transportation to medical appointments?: No Do you have trouble paying your heating and electricity bill?: No Do you have trouble taking care of your child, family member or friend?: No Do you have trouble with day-to-day activities such as bathing, preparing meals, shopping, managing finances, etc.?: No Are you currently unemployed and looking for a job?: No Are you interested in more education?: No Currently or been in a relationship where the following occur: no concerns reported AUDIT C Alcohol Use Questionnaire (AUDIT-C) 1. How often do you have a drink containing alcohol?: Monthly or less 2. How many drinks containing alcohol do you have on a typical day when you are drinking?: 1 or 2 3. How often do you have six or more drinks on one occasion?: Never Total Score: 1 Score Reviewed/Action Taken: No QUAN-7 AMB Questionnaire QUAN-7 Date QUAN - 7 assessed: 03/09/23 Feeling nervous, anxious, or on edge: 1 = Several days Not being able to stop or control worryin = Several days Worrying too much about different things: 1 = Several days Trouble relaxin = Not at all Being so restless that it is hard to sit still: 0 = Not at all Becoming easily annoyed or irritable: 0 = Not at all Feeling afraid as if something awful might happen: 0 = Not at all Total QUAN-7 score (0-4 normal; 5-9 mild; 10-14 moderate; 15-21 severe): 3 Source: Developed by Drs. J Luis Kern, Fara Harmon, Lamont Lerma and colleagues, with an educational gwen from [employer]. QUAN-7 Assessment Billing QUAN-7 Assessment Tool: QUAN-7 Assessment 15293 Review of Systems Const Denies chills and Denies fever(s) Eyes Denies blurry vision ENT Denies vertigo, Denies dizziness and Denies sore throat Card Denies chest pain at rest, Denies chest pain with activity, Denies diaphoresis, Denies dyspnea and Denies dyspnea on exertion Resp Denies cough, Denies dyspnea, Denies dyspnea on exertion and Denies wheezing GI Denies abdominal pain, Denies melena, Denies hematochezia, Denies constipation, Denies diarrhea and Denies loose stools Denies hematuria Musc Denies numbness and Denies tingling Skin/Breast Denies lesions Neuro Denies vertigo, Denies dizziness, Denies numbness and Denies tingling Psych Denies anxiety, Denies depression, Denies homicidal ideation, Denies suicidal ideation and Denies other (substance abuse) Aller/Immun Denies wheezing Physical exam (Primary Care) Vital Signs: Last Vital Signs Pulse 68 03/09/23 08:54 BP 130/80 03/09/23 08:54 Pulse Ox 98 03/09/23 08:54 Oxygen Delivery Method Room Air 03/09/23 08:54 BMI result Body Mass Index 47.0 Tobacco/Smoking Status: Tobacco use Status Tobacco use date assessed 03/09/23 03/09/23 08:58 Patient Tobacco Use Status Former Tobacco user 03/09/23 08:54 e-Cigarette/Vaping Use Never Used 03/09/23 08:54 PHQ-9: PHQ-9 Score PHQ-9: Total score 0 03/09/23 09:59 Depression Screening Interpretation: Negative Thrive Assessment: Date of Thrive Assessment Date Thrive assessed 03/09/23 03/09/23 09:59 Currently or been in a relationship where the following occur: no concerns reported Const General: cooperative Nutritional Appearance: well nourished and obese Orientation/consciousness: patient oriented x3 HENMT Head: Yes normal to inspection, Yes normocephalic and Yes atraumatic Ears: TM normal on the right and TM normal on the left Eyes General: appearance normal, both eyes and all related structures Alignment and Position: alignment normal and position normal Neck Neck: Yes normal visual inspection and Yes no lymphadenopathy Resp Effort & Inspection: normal respiratory effort Auscultation: clear to auscultation bilaterally Cardio Rate: regular rate Rhythm: regular rhythm Heart sounds: S1 normal heart sound present, S2 normal heart sound present and no murmurs GI Palpation (GI): Soft to palpation and nontender Auscultation: normal bowel sounds Skin Rashes: no rashes Neuro General: patient oriented x3, moves all extremities, no focal motor deficits and deep tendon reflexes 2+ bilaterally Romberg Test: Negative Extrem Right lower extremity: no edema Left lower extremity: no edema Psych Affect: normal affect Attitude: cooperative Thought process: Normal thought process present Immunizations pneumoc 20-pastora conj-dip cr(PF) 0.5 mL IM syringe Performing Provider: SHANAE Corea Performing Location: [facility] Administered by: SHIV Marmolejo on 03/09/23 09:59 Dose Route Admin Location Dispensed Lot Number Expiration Date 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 0.5 mL IM Left Deltoid 0.5 mL [id number] 04/07/24 [employer]YETH/P[employer]ER VIS Given Date VIS Provided VIS Publication Date 03/09/23 Single Vaccine 21 Eligibility Eligibility Date Funding Source Not VF Eligible 03/09/23 Private Assessment and Plan Assessment & Plan (1) Physical exam: Code(s): Z00.00 - Encounter for general adult medical examination without abnormal findings (2) Vitamin D deficiency: Code(s): E55.9 - Vitamin D deficiency, unspecified (3) Obesity: Code(s): E66.9 - Obesity, unspecified Orders: Orders Complete Blood Count Auto Diff Today Z00.00 - Encounter for general adult medical examination without abnormal findings Pneumococcal 20 Immunization Today Z23 - Encounter for immunization Comprehensive [place]. Panel Fast Today Z00.00 - Encounter for general adult medical examination without abnormal findings TSH reflex Free T4 Today Z00.00 - Encounter for general adult medical examination without abnormal findings UA CC w/rflx Micro + Cult Today Z00.00 - Encounter for general adult medical examination without abnormal findings Lipid Panel Today Z00.00 - Encounter for general adult medical examination without abnormal findings Vitamin D 25-OH Total Today E55.9 - Vitamin D deficiency, unspecified Referrals Nutrition/Dietitian Referral E66.9 - Obesity, unspecified Medications: New lorazepam 0.5 mg PO BEDTIME PRN 30 tabs 0RF anxiety/sleep Coding Level of Care Code Est Pt Prev Care >65y(71890) Diagnoses Physical exam Z00.00 Vitamin D deficiency E55.9 Obesity E66.9 Additional Codes QUAN-7 Assessment Billing - QUAN-7 Assessment Tool: QUAN-7 Assessment 24169 ([id number])
[2023-03-09 08:54] VITALS: BP 130/80; PULSE 68; O2SAT 98; BMI 47.0
== END 2023-03-09 09:51 | disposition home or self-care (01) ==
PROVIDERS: PCP Nurse Practitioner Family; Visit Provider Nurse Practitioner Family
DX: Z00.00 Encounter for general adult medical examination without abnormal findings (principal); E66.9 Obesity, unspecified; Z68.42 Body mass index [BMI] 45.0-49.9, adult; Z23 Encounter for immunization; E55.9 Vitamin D deficiency, unspecified
CPT/HCPCS: 90471; 90677; 99397

== ENCOUNTER 2023-03-30 11:03 | Outpatient (AMB) | payer MEDICARE, SELFPAY ==
[2023-03-30 11:42] VITALS: BMI 47.1
--- NOTE | 2023-03-30 11:42 | A.OFFVIS_ITS ---
Intake VS Expanded 03/30/23 11:42 04/11/23 13:47 Height 5 ft 3 in 5 ft 3 in Weight 265 lb 10.512 oz 266 lb BMI 47.1 47.1 Intake Visit Reasons: Obesity/CONFIRMED Allergies white faced hornets Allergy (Unknown, Uncoded 03/09/23 08:55) anaphylaxis HPI Nutrition Presentation Details Pt presents for MNT for obesity. The Pt was referred by TRAVIS Angela food frequency fruits: 0-1/d ve-3 x/wk dairy: .4 servings/d prot: fish/poultry/beef 10 oz/d starches > 20 serving/d beverages: water, diet soda, juices, coffee, milk physical activity: daily life activities ETOH/SMoking: denies no food allergies no meal routine ZBZ-Vijocad-Qc.Jeor Equation Height 5 ft 3 in Weight 266 lb Resting Metabolic Rate 1714.83 Calculated Activity Level Sedentary Calories Needed to Maintain Weight 7.80 Diagnosis Nutrition problem #1 food nutri know defi As related to (etiology) #1 diagnosis As evidenced by (sign/symptom) #1 high BMI (47. 1 on 03/2023) and knowledge deficit of diet Monitoring/Goals Nutrition problem monitoring level of knowledge/skill, total PRO intake, total CHO intake and weight Nutrition goal/outcome wt loss 5lbs in 2 months Outcome progress verbalized understanding Learning/Education Readiness to learn good Most Recent Diabetes Results: Cholesterol 152 mg/dL (<200) 04/07/23 HDL Cholesterol 56 mg/dL (>40) 04/07/23 Triglycerides 77 mg/dL (<150) 04/07/23 Creatinine 0.75 mg/dL (0.5-1.4) 04/07/23 Blood Urea Nitrogen 9 mg/dL (9-16) 04/07/23 Sodium 140 mmol/L (135-145) 04/07/23 Potassium 3.9 mmol/L (3.3-5.1) 04/07/23 Chloride 105 mmol/L (96-108) 04/07/23 Carbon Dioxide 26 mmol/L (22-29) 04/07/23 Calcium 9.2 mg/dL (8.4-10.2) 04/07/23 AST 22 U/L (5-31) 04/07/23 ALT 26 U/L (0-31) 04/07/23 Total Protein 7.2 g/dL (6.5-8.0) 04/07/23 Albumin 4.2 g/dL (3.5-5.0) 04/07/23 [facility] Medical History Sleep apnea COVID-19 Surgical History Hx of colonoscopy Social History Housing: [facility] Patient Tobacco Use Status: Former Tobacco user Quit Date: quit 40 years ago e-Cigarette/Vaping Use: Never Used Second Hand Smoke Exposure: No service: No 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al status: employed and retired 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: [employer] 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al exposures/hazards: Yes Cognitive needs: No Hearing needs: No Vision needs: No Assessment & Plan Assessment & Plan (1) Obesity: Code(s): E66.9 - Obesity, unspecified Plan: Wt: 121 Kg ( 03/2023 ) Est kcal needs as per MSJ: 2100 (40% carb, 30% protein/fat) Est fluid needs as per 25-30 ml/d: 3600 Est prot per day as per 1 g/kg bw: 121 Recommend fiber intake : 8-10 g per day and gradually increase to 25-28 g per day for women and 35-38 g for men or as tolerated Recommend sodium intake per day : less than 2000 mg Educated patient on: ( R = reviewed V = verbalizes understanding N/R = needs review N/A = not applicable * Food sources of carbohydrate, adequate serving sizes and its role in various health conditions: R * Differences between complex carbohydrates a simple carbohydrates, role of fiber in diet: R * Lean protein sources of foods: R * Differences between types of fats and role in diet (mono on saturated fat fatty acids, saturated fatty acids, trans fats): N/R * Food sources of sodium in salt and healthy modifications for heart health in kidney health: NR * Vitamins and minerals: N/R * Healthy plate method concept: R * Physical activity: Benefits a precaution: N/R * Patient Instructions: Work on having 3 scheduled meals per day to less than 60 g carbs at following healthy plate Reduce on snacks Keep hydrated choosing low sugar beverages Coding Level of Care Code Nutr Indiv Intake (57295) Diagnoses Obesity E66.9 Time Spent (min) 30
[2023-04-11 18:31] VITALS: BMI 47.1
== END 2023-03-30 12:26 | disposition home or self-care (01) ==
PROVIDERS: PCP Nurse Practitioner Family; Visit Provider Dietitian, Registered
DX: E66.9 Obesity, unspecified (principal)

== ENCOUNTER → 2023-03-30 11:03 | Outpatient (BNVA) | payer MEDICARE, SELFPAY | PROVIDERS: PCP Nurse Practitioner Family; Visit Provider Dietitian, Registered | DX: E66.9 Obesity, unspecified (principal); Z68.41 Body mass index [BMI] 40.0-44.9, adult | CPT/HCPCS: 97802 ==

== ENCOUNTER 2023-04-07 07:23 | Outpatient (REF) | payer MEDICARE, SELFPAY ==
[2023-04-07 11:16] LABS: MANUAL DIFF FLAG NO
[2023-04-07 11:27] LABS: Appearance Urine Clear; Color Urine Yellow; Glucose Urine UA Negative (Negative); Leukocyte Esterase Urine Negative (Negative); Nitrite Urine Negative (Negative); PH 5.5 (5.0-9.0); Specific Gravity - Urine 1.015 (1.005-1.025); Urine Blood Negative (Negative); Urine Ketones Negative (Negative); Urine Protein Negative (Neg-Trace)
[2023-04-07 11:45] LABS: Basophils Absolute Auto 0.1 X10*3/uL (0.0-0.2); Basophils Percent Auto 0.8 % (0-2); Eosinophils Percent Auto 0.5 % (0-4); Hematocrit 41.1 % (37.0-47.0); Hemoglobin 13.3 g/dl (12.0-16.0); Imm Gran Abs Auto 0.03 X10*3/uL (0.00-0.03); Imm Gran Pct Auto 0.5 % (0.0-0.4); Lymphocytes Percent Auto 33.8 % (20-40); Mean Corpuscular HGB Conc 32.4 g/dl (31.0-35.0); Mean Corpuscular Hemoglobin 32.3 pg (27.0-33.0); Mean Corpuscular Volume 99.8 fL (80.0-98.0); Mean Platelet Volume 11.7 fL (9.4-12.3); Monocytes Absolute Auto 0.6 X10*3/uL (0.1-1.2); Monocytes Percent Auto 9.2 % (2-11); Neutrophils Absolute Auto 3.3 x10*3/uL (2.0-8.3); Neutrophils Percent Auto 55.2 % (45-73); Platelet Count 301 X10*3/uL (160-400); Red Blood Count 4.12 X10*6/uL (4.20-5.50); Red Cell Distribution Width 13.2 % (11.0-16.0)
[2023-04-07 12:18] LABS: Alanine Aminotransferase 26 U/L (0-31); Albumin Level 4.2 g/dL (3.5-5.0); Alkaline Phosphatase 102 U/L (39-117); Anion Gap 13 (12-20); Aspartate Amino Transferase 22 U/L (5-31); Bilirubin Total 1.1 mg/dL (0.0-1.0); Blood Urea Nitrogen 9 mg/dL (9-16); Calcium 9.2 mg/dL (8.4-10.2); Carbon Dioxide 26 mmol/L (22-29); Chloride 105 mmol/L (96-108); Cholesterol 152 mg/dL (<200); Estimated Glomerular Filt Rate > 60; Glucose Fasting 94 mg/dL (60-99); HDL Cholesterol 56 mg/dL (>40); LDL Cholesterol Calculated 81 mg/dL (<100); Potassium 3.9 mmol/L (3.3-5.1); Sodium 140 mmol/L (135-145); Total Protein 7.2 g/dL (6.5-8.0); Triglycerides 77 mg/dL (<150)
[2023-04-07 12:20] LABS: TSH reflex Free T4 1.62 uIU/mL (0.32-4.0); Vitamin D 25-OH Total 41.5 ng/mL (>30)
== END 2023-04-07 07:24 | disposition home or self-care (01) ==
LOC: HO.HMGCLDS 07:23
PROVIDERS: PCP Nurse Practitioner Family; Visit Provider Nurse Practitioner Family
DX: Z00.00 Encounter for general adult medical examination without abnormal findings (principal); E55.9 Vitamin D deficiency, unspecified; Z13.220 Encounter for screening for lipoid disorders; Z13.29 Encounter for screening for other suspected endocrine disorder
CPT/HCPCS: 36415; 80053; 80061; 81003; 82306; 84443; 85025

== ENCOUNTER 2023-05-04 09:50 | Outpatient (AMB) | payer MEDICARE, SELFPAY ==
[2023-05-04 09:56] VITALS: BMI 46.9
--- NOTE | 2023-05-04 09:56 | MHC.AMNUTRGE ---
Intake VS Expanded 05/04/23 09:56 Height 5 ft 3 in Weight 264 lb 8.875 oz BMI 46.9 Intake Visit Reasons: Obesity/CONFIRMED Allergies white faced hornets Allergy (Unknown, Uncoded 03/09/23 08:55) anaphylaxis HPI Nutrition Presentation Details Patient presents for medical nutrition therapy follow-up for obesity, patient was referred by Addi Reynoso,, primary care provider Patient reports she is working on dietary modifications, feels that she has made a lot of changes and becomes frustrated due to no significant weight loss however patient reports feeling less bloated has she continues to work on dietary modifications. Physical activity: Patient reports keeping sedentary Most Recent Diabetes Results: Cholesterol 152 mg/dL (<200) 04/07/23 HDL Cholesterol 56 mg/dL (>40) 04/07/23 Triglycerides 77 mg/dL (<150) 04/07/23 Creatinine 0.75 mg/dL (0.5-1.4) 04/07/23 Blood Urea Nitrogen 9 mg/dL (9-16) 04/07/23 Sodium 140 mmol/L (135-145) 04/07/23 Potassium 3.9 mmol/L (3.3-5.1) 04/07/23 Chloride 105 mmol/L (96-108) 04/07/23 Carbon Dioxide 26 mmol/L (22-29) 04/07/23 Calcium 9.2 mg/dL (8.4-10.2) 04/07/23 AST 22 U/L (5-31) 04/07/23 ALT 26 U/L (0-31) 04/07/23 Total Protein 7.2 g/dL (6.5-8.0) 04/07/23 Albumin 4.2 g/dL (3.5-5.0) 04/07/23 [facility] Medical History Sleep apnea COVID-19 Surgical History Hx of colonoscopy [facility] Patient Tobacco Use Status: Former Tobacco user Quit Date: quit 40 years ago e-Cigarette/Vaping Use: Never Used Second Hand Smoke Exposure: No service: No 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al status: employed and retired 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al exposures/hazards: Yes Cognitive needs: No Hearing needs: No Vision needs: No Assessment & Plan Assessment & Plan (1) Obesity: Code(s): E66.9 - Obesity, unspecified Plan: Wt: 121 Kg ( 03/2023 ) 120 kg (04/2023) Est kcal needs as per MSJ: 2100 (40% carb, 30% protein/fat) Est fluid needs as per 25-30 ml/d: 3600 Est prot per day as per 1 g/kg bw: 121 Recommend fiber intake : 8-10 g per day and gradually increase to 25-28 g per day for women and 35-38 g for men or as tolerated Recommend sodium intake per day : less than 2000 mg Educated patient on: ( R = reviewed V = verbalizes understanding N/R = needs review N/A = not applicable Food sources of carbohydrate, adequate serving sizes and its role in various health conditions: R Differences between complex carbohydrates a simple carbohydrates, role of fiber in diet: R Lean protein sources of foods: R Differences between types of fats and role in diet (mono on saturated fat fatty acids, saturated fatty acids, trans fats): N/R Food sources of sodium in salt and healthy modifications for heart health in kidney health: R Vitamins and minerals: N/R Healthy plate method concept: R Physical activity: Benefits a precaution: R Patient Instructions: Incorporate at least 10 minutes of stretches , physical activity daily - as relaxation routine , gradually increased to 30 minutes per day as tolerated unless otherwise specified by her doctor be mindful of salt/sodium - aim at less than 600 mg per meal or less Coding Level of Care Code Nutr Indiv Subseq (41690) Diagnoses Obesity E66.9 Time Spent (min) 25
== END 2023-05-04 10:36 | disposition home or self-care (01) ==
PROVIDERS: PCP Nurse Practitioner Family; Visit Provider Dietitian, Registered
DX: E66.9 Obesity, unspecified (principal)

== ENCOUNTER → 2023-05-04 09:50 | Outpatient (BNVA) | payer MEDICARE, SELFPAY | PROVIDERS: PCP Nurse Practitioner Family; Visit Provider Dietitian, Registered | DX: E66.9 Obesity, unspecified (principal); Z68.42 Body mass index [BMI] 45.0-49.9, adult | CPT/HCPCS: 97803 ==

== ENCOUNTER 2023-06-02 10:20 | Outpatient (AMB) | payer MEDICARE, SELFPAY ==
[2023-06-02 10:34] VITALS: BMI 46.5
--- NOTE | 2023-06-02 10:34 | A.OFFVIS_ITS ---
Intake VS Expanded 06/02/23 10:34 Height 5 ft 3 in Weight 262 lb 5.601 oz BMI 46.5 Intake Visit Reasons: Obesity/LVM Allergies white faced hornets Allergy (Unknown, Uncoded 06/09/23 10:07) anaphylaxis HPI Nutrition Presentation Details Pt present for MNT f/u for obesity. Pt reports working on reducing salt intake Pt reports using a walk fit jose just started this week 20 minutes/d Most Recent Diabetes Results: Cholesterol 152 mg/dL (<200) 04/07/23 HDL Cholesterol 56 mg/dL (>40) 04/07/23 Triglycerides 77 mg/dL (<150) 04/07/23 Creatinine 0.75 mg/dL (0.5-1.4) 04/07/23 Blood Urea Nitrogen 9 mg/dL (9-16) 04/07/23 Sodium 140 mmol/L (135-145) 04/07/23 Potassium 3.9 mmol/L (3.3-5.1) 04/07/23 Chloride 105 mmol/L (96-108) 04/07/23 Carbon Dioxide 26 mmol/L (22-29) 04/07/23 Calcium 9.2 mg/dL (8.4-10.2) 04/07/23 AST 22 U/L (5-31) 04/07/23 ALT 26 U/L (0-31) 04/07/23 Total Protein 7.2 g/dL (6.5-8.0) 04/07/23 Albumin 4.2 g/dL (3.5-5.0) 04/07/23 [facility] Medical History (Updated 06/09/23 @ 10:17 by Wili Daniel MD) REAL on CPAP Morbid obesity Sleep apnea COVID-19 Surgical History Hx of colonoscopy Social History Housing: Condominium Patient Tobacco Use Status: Former Tobacco user Quit Date: quit 40 years ago e-Cigarette/Vaping Use: Never Used Second Hand Smoke Exposure: No service: No 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al status: employed and retired 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al exposures/hazards: Yes Cognitive needs: No Hearing needs: No Vision needs: No Assessment & Plan Assessment & Plan (1) Obesity: Code(s): E66.9 - Obesity, unspecified Plan: Wt: 121 Kg ( 03/2023 ) 120 kg (04/2023), 119 kg (05/2023) Est kcal needs as per MSJ: 2100 (40% carb, 30% protein/fat) Est fluid needs as per 25-30 ml/d: 3600 Est prot per day as per 1 g/kg bw: 121 Recommend fiber intake : 8-10 g per day and gradually increase to 25-28 g per day for women and 35-38 g for men or as tolerated Recommend sodium intake per day : less than 2000 mg Educated patient on: ( R = reviewed V = verbalizes understanding N/R = needs review N/A = not applicable * Food sources of carbohydrate, adequate serving sizes and its role in various health conditions: R * Differences between complex carbohydrates a simple carbohydrates, role of fiber in diet: R * Lean protein sources of foods: R * Differences between types of fats and role in diet (mono on saturated fat fatty acids, saturated fatty acids, trans fats): N/R * Food sources of sodium in salt and healthy modifications for heart health in kidney health: R * Vitamins and minerals: N/R * Healthy plate method concept: R * Physical activity: Benefits a precaution: R * Patient Instructions: Continue working on physical activity, goal 150 minutes per week HAve a meal replacement once a day Coding Level of Care Code Nutr Indiv Subseq (94906) Diagnoses Obesity E66.9 Time Spent (min) 30
== END 2023-06-02 11:05 | disposition home or self-care (01) ==
PROVIDERS: PCP Nurse Practitioner Family; Visit Provider Dietitian, Registered
DX: E66.9 Obesity, unspecified (principal)

== ENCOUNTER → 2023-06-02 10:20 | Outpatient (BNVA) | payer MEDICARE, SELFPAY | PROVIDERS: PCP Nurse Practitioner Family; Visit Provider Dietitian, Registered | DX: E66.9 Obesity, unspecified (principal); Z68.42 Body mass index [BMI] 45.0-49.9, adult | CPT/HCPCS: 97803 ==

== ENCOUNTER 2023-06-09 09:20 | Outpatient (AMB) | payer MEDICARE, SELFPAY ==
[2023-06-09 09:36] VITALS: BP 130/80; PULSE 75; O2SAT 97; BMI 46.1
--- NOTE | 2023-06-09 09:36 | MHC.OFFVIS ---
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: No Allergies white faced hornets Allergy (Unknown, Uncoded 06/09/23 10:07) anaphylaxis Medication List - Last Reconciled 06/09/23 by Wili Daniel MD albuterol sulfate 90 mcg/actuation (Ventolin HFA) 2 puffs inhalation Q6H PRN atorvastatin 40 mg PO BEDTIME biotin 10 mg PO DAILY calcium carbonate-vitamin D3 600 mg-12.5 mcg (500 unit) (Calcium 600 with Vitamin D3) 1 cap PO BID 90 days levothyroxine 88 mcg PO DAILY lorazepam 0.5 mg PO BEDTIME PRN Do you need a note to return to daycare/school/sports/work: No HPI Obstructive sleep apnea HPI Details 68 YEARS OLD VERY PLEASANT LADY, COMES FOR THE 1ST TIME FOR CONTINUED SLEEP APNEA CARE AND FOLLOW-UP. SHE HAD REGIONAL SLEEP STUDY ABOUT 7 YEARS AGO, IT WAS DONE ON THE SAME NIGHT WHEN HER HAD HIS SLEEP STUDY. STUDY WAS DONE AT [facility]. PATIENT WAS STARTED ON CPAP THERAPY BY DR. QUESADA OF [facility]. BUT THEN SHE HAS NOT FOLLOWED UP WITH ANYONE. SHE HAS BEEN USING THE CPAP DEVICE VERY REGULARLY AND GETTING SUPPLIES SHE HAS BEEN USING THE CPAP EVERY NIGHT AND GETTING SUPPLIES PERIODICALLY. SHE SHE CLAIMS THAT SHE SLEEPS VERY GOOD, WAKES UP REFRESHED, AND HAS HAD NO ISSUE WITH THE USE OF CPAP. BECAUSE HER ALSO USES THE CPAP, THE BOTH PUT ON THE CPAP MASK START THE MACHINE AND GO TO SLEEP. IN FACT SHE CAN NOT SLEEP WITHOUT THE CPAP. 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 PHYSICALLY VERY ACTIVE SHE GOES AROUND ON THE MOTORCYCLE WITH HER . SHE HAS HAD OCCASIONAL WHEEZE, AND USES VENTOLIN BUT VERY RARELY. [facility] Medical History (Updated 06/09/23 @ 10:17 by Wili Daniel MD) REAL on CPAP Morbid obesity Sleep apnea COVID-19 Surgical History Hx of colonoscopy Social History Housing: Condominium Patient Tobacco Use Status: Former Tobacco user Quit Date: quit 40 years ago e-Cigarette/Vaping Use: Never Used Second Hand Smoke Exposure: No service: No 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al status: employed and retired 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: [employer] 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al exposures/hazards: Yes Cognitive needs: No Hearing needs: No Vision needs: No Review of Systems Const All systems reviewed & are unremarkable except as noted in HPI and below Denies snoring Eyes Reports no additional complaints ENT Reports no additional complaints Card Denies chest pain, Denies syncope, Denies irregular heart rhythm and Denies dyspnea Resp Denies cough, Denies dyspnea, Denies snoring and Denies wheezing GI Reports no additional complaints Reports no additional complaints Musc Reports no additional complaints Skin/Breast Reports system reviewed and no additional complaints, except as documented Neuro Reports no additional complaints and Denies syncope Psych Reports no additional complaints Endo Reports no additional complaints Jamarcus/Lymph Reports no additional complaints Aller/Immun Reports no additional complaints and Denies wheezing Physical Exam Vital Signs: Last Vital Signs Pulse 75 06/09/23 09:36 BP 130/80 06/09/23 09:36 Pulse Ox 97 06/09/23 09:36 Oxygen Delivery Method Room Air 06/09/23 09:36 BMI result Body Mass Index 46.1 Const General: healthy appearing (EXCEPT FOR BEING OVERWEIGHT), comfortable, no acute distress, alert and awake Orientation/consciousness: patient oriented x3 HEENT Head: Yes normal to inspection General nose exam: No nasal polyps present and No nasal discharge present Face and sinus: Yes sinuses nontender Mouth: oropharynx normal Throat: Yes posterior oropharynx normal Eyes General: appearance normal, both eyes and all related structures Neck Neck: Yes normal visual inspection, Yes no lymphadenopathy, Yes trachea midline and Yes no JVD Thyroid: Thyroid normal Chest Chest palpation & inspection: normal inspection of the chest, normal palpation of entire chest wall and no tenderness Resp Effort & Inspection: normal respiratory effort Auscultation: clear to auscultation bilaterally, no crackles, no rhonchi and no wheezes Cardio Palpation: normal PMI Rate: regular rate Rhythm: regular rhythm Heart sounds: no gallops and no murmurs Peripheral pulses: Peripheral pulses 2+ throughout GI Palpation (GI): Soft to palpation, nontender, No hepatosplenomegaly present and no masses Auscultation: normal bowel sounds Back/Spine/Pelvis Thoracic/Lumbar Spine: thoracic and lumbar spine normal to inspection Skin General skin exam: no rashes or lesions noted Neuro General: patient oriented x3 and no focal motor deficits Cranial nerves: Yes CN's II-XII intact bilaterally Extrem General: Yes normal to inspection, Yes no clubbing, cyanosis or edema and Yes no calf tenderness Psych Appearance: grossly normal and well kempt Speech and movement: Normal speech and movement present Results Reviewed Results Reviewed: NONE AVAILABLE Assessment & Plan Assessment & Plan (1) Morbid obesity: Comment: BMI = 46.1 SHE IS GROSSLY OBESE, PHYSICALLY IN GOOD CONDITION. SHE IS BEING TREATED FOR HYPOTHYROIDISM AND IS BEING FOLLOWED BY ENDOCRINOLOGY SERVICE. SHE INTENDS TO LOSE WEIGHT SLOWLY. Code(s): E66.01 - Morbid (severe) obesity due to excess calories Plan: DISCUSSED ABOUT THE WEIGHT ISSUE, ENCOURAGED THAT SHE SHOULD LOSE WEIGHT, EVEN IF IT IS BY A FEW LB EVERY MONTH. (2) REAL on CPAP: Comment: LONGSTANDING HISTORY OF OBSTRUCTIVE SLEEP APNEA EXPECTED FROM HER BODY SIZE. REGIONAL SLEEP STUDY AT [facility]. HAS BEEN USING CPAP VERY REGULARLY AND SLEEPING WELL, CPAP DEVICE IS MORE THAN 7 YEARS OLD, SHE IS EXPRESSING HER DESIRE TO GET A NEW CPAP DEVICE. Code(s): G47.33 - Obstructive sleep apnea (adult) (pediatric) Plan: WE WILL TRY TO GET THE COPY OF REGIONAL SLEEP STUDY. ADVISED TO SHOW HER CPAP MACHINE TO THE DME SUPPLIER, [facility] , AFTER WE HAVE THE REGIONAL SLEEP STUDY IN HAND, I WILL ORDER A REPLACEMENT DEVICE, IF NEEDED WE MAY HAVE TO DO A REPEAT HOME SLEEP STUDY. Coding Level of Care Code New Pt Level 3 (55664) Diagnoses Morbid obesity E66.01 REAL on CPAP G47.33
== END 2023-06-09 10:05 | disposition home or self-care (01) ==
PROVIDERS: PCP Nurse Practitioner Family; Referring Provider Nurse Practitioner Family; Visit Provider Internal Medicine
DX: E66.01 Morbid (severe) obesity due to excess calories (principal); G47.33 Obstructive sleep apnea (adult) (pediatric)
CPT/HCPCS: 99203

== ENCOUNTER → 2023-06-09 09:20 | Outpatient (BNVA) | payer MEDICARE, SELFPAY | PROVIDERS: PCP Nurse Practitioner Family; Visit Provider Internal Medicine | DX: G47.33 Obstructive sleep apnea (adult) (pediatric) (principal); E66.01 Morbid (severe) obesity due to excess calories; Z68.42 Body mass index [BMI] 45.0-49.9, adult; Z99.89 Dependence on other enabling machines and devices | CPT/HCPCS: 99202 ==

== ENCOUNTER 2023-07-05 10:54 | Outpatient (AMB) | payer MEDICARE, SELFPAY ==
[2023-07-05 11:10] VITALS: BMI 46.9
--- NOTE | 2023-07-05 11:10 | A.OFFVIS_ITS ---
Intake VS Expanded 07/05/23 11:10 Height 5 ft 3 in Weight 264 lb 8.875 oz BMI 46.9 Intake Visit Reasons: obesity Allergies white faced hornets Allergy (Unknown, Uncoded 06/09/23 10:07) anaphylaxis HPI Nutrition Presentation Details Pt presents for MNT for morbid obesity. The Pt reports working on keeping physically active , uses walk [employer] jose, walking 30 min 5 times a day Reports fluid intake 16 oz/d Meal challenges: traveling/bike, eats out frequently Most Recent Diabetes Results: Cholesterol 152 mg/dL (<200) 04/07/23 HDL Cholesterol 56 mg/dL (>40) 04/07/23 Triglycerides 77 mg/dL (<150) 04/07/23 Creatinine 0.75 mg/dL (0.5-1.4) 04/07/23 Blood Urea Nitrogen 9 mg/dL (9-16) 04/07/23 Sodium 140 mmol/L (135-145) 04/07/23 Potassium 3.9 mmol/L (3.3-5.1) 04/07/23 Chloride 105 mmol/L (96-108) 04/07/23 Carbon Dioxide 26 mmol/L (22-29) 04/07/23 Calcium 9.2 mg/dL (8.4-10.2) 04/07/23 AST 22 U/L (5-31) 04/07/23 ALT 26 U/L (0-31) 04/07/23 Total Protein 7.2 g/dL (6.5-8.0) 04/07/23 Albumin 4.2 g/dL (3.5-5.0) 04/07/23 [facility] Medical History (Updated 06/09/23 @ 10:17 by Wili Daniel MD) REAL on CPAP Morbid obesity Sleep apnea COVID-19 Surgical History Hx of colonoscopy Social History Housing: Condominium Patient Tobacco Use Status: Former Tobacco user Quit Date: quit 40 years ago e-Cigarette/Vaping Use: Never Used Second Hand Smoke Exposure: No service: No 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al status: employed and retired 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al exposures/hazards: Yes Cognitive needs: No Hearing needs: No Vision needs: No Assessment & Plan Assessment & Plan (1) Obesity: Code(s): E66.9 - Obesity, unspecified Plan: Wt: 121 Kg ( 03/2023 ) 120 kg (04/2023), 119 kg (05/2023), 120 kg (06/2023 Est kcal needs as per MSJ: 2100 (40% carb, 30% protein/fat) Est fluid needs as per 25-30 ml/d: 3600 Est prot per day as per 1 g/kg bw: 121 Recommend fiber intake : 8-10 g per day and gradually increase to 25-28 g per day for women and 35-38 g for men or as tolerated Recommend sodium intake per day : less than 2000 mg Educated patient on: ( R = reviewed V = verbalizes understanding N/R = needs review N/A = not applicable * Food sources of carbohydrate, adequate serving sizes and its role in various health conditions: R * Differences between complex carbohydrates a simple carbohydrates, role of fiber in diet: R * Lean protein sources of foods: R * Differences between types of fats and role in diet (mono on saturated fat fatty acids, saturated fatty acids, trans fats): R * Food sources of sodium in salt and healthy modifications for heart health in kidney health: R * Vitamins and minerals: N/R * Healthy plate method concept: R * Physical activity: Benefits a precaution: R * Patient Instructions: Have 2 fruits a day (replacing breads, muffins, corn muffin, or similar starch - carry fruits with you on travels Continue working on reducing salty foods (be mindful of sauces, highly processed meats: salami and similar, fried foods/batters Be mindful of choices when eating out (choose lower fat protein foods,reduce on fried foods, consider bringing your own salads, carrying in lunch bag/icepacks ) Drink water with meals 6-12 oz, with each meal keep physical active, enjoy it Coding Level of Care Code Nutr Indiv Subseq (28317) Diagnoses Obesity E66.9 Time Spent (min) 15
== END 2023-07-05 11:38 | disposition home or self-care (01) ==
PROVIDERS: PCP Nurse Practitioner Family; Visit Provider Dietitian, Registered
DX: E66.9 Obesity, unspecified (principal)

== ENCOUNTER → 2023-07-05 10:54 | Outpatient (BNVA) | payer MEDICARE, SELFPAY | PROVIDERS: PCP Nurse Practitioner Family; Visit Provider Dietitian, Registered | DX: E66.9 Obesity, unspecified (principal); Z68.42 Body mass index [BMI] 45.0-49.9, adult | CPT/HCPCS: 97803 ==

== ENCOUNTER 2023-08-02 09:52 | Outpatient (AMB) | payer MEDICARE, SELFPAY ==
--- NOTE | 2023-08-02 10:05 | A.OFFVIS_ITS ---
VS Expanded 08/02/23 10:06 Height 5 ft 3 in Weight 262 lb 12.656 oz BMI 46.5 Intake Visit Reasons: monitor weight/LVM Allergies white faced hornets Allergy (Unknown, Uncoded 06/09/23 10:07) anaphylaxis Nutrition Presentation Details: Pt presents for MNT follow-up for obesity Patient reports feeling better and keeping physically active. Patient gets discouraged due to lack of weight loss. Patient tends to travel a lot and being road a lot eats choosing foods at restaurants the majority of times which often times higher calories and also salt. BS Monitoring Most Recent Diabetes Results: Cholesterol 152 mg/dL (<200) 04/07/23 HDL Cholesterol 56 mg/dL (>40) 04/07/23 Triglycerides 77 mg/dL (<150) 04/07/23 Creatinine 0.75 mg/dL (0.5-1.4) 04/07/23 Blood Urea Nitrogen 9 mg/dL (9-16) 04/07/23 Sodium 140 mmol/L (135-145) 04/07/23 Potassium 3.9 mmol/L (3.3-5.1) 04/07/23 Chloride 105 mmol/L (96-108) 04/07/23 Carbon Dioxide 26 mmol/L (22-29) 04/07/23 Calcium 9.2 mg/dL (8.4-10.2) 04/07/23 AST 22 U/L (5-31) 04/07/23 ALT 26 U/L (0-31) 04/07/23 Total Protein 7.2 g/dL (6.5-8.0) 04/07/23 Albumin 4.2 g/dL (3.5-5.0) 04/07/23 [facility] Medical History (Updated 06/09/23 @ 10:17 by Wili Daniel MD) REAL on CPAP Morbid obesity Sleep apnea COVID-19 Surgical History Hx of colonoscopy [facility] Patient Tobacco Use Status: Former Tobacco user e-Cigarette/Vaping Use: Never Used Second Hand Smoke Exposure: No service: No 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al status: employed and retired 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: [employer] 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al exposures/hazards: Yes Cognitive needs: No Hearing needs: No Vision needs: No Assessment & Plan Assessment & Plan (1) Obesity: Code(s): E66.9 - Obesity, unspecified Category: Medical Plan: Wt: 121 Kg ( 03/2023 ) 120 kg (04/2023), 119 kg (05/2023), 120 kg (06/2023 Est kcal needs as per MSJ: 2100 (40% carb, 30% protein/fat) Est fluid needs as per 25-30 ml/d: 3600 Est prot per day as per 1 g/kg bw: 121 Recommend fiber intake : 8-10 g per day and gradually increase to 25-28 g per day for women and 35-38 g for men or as tolerated Recommend sodium intake per day : less than 2000 mg Educated patient on: ( R = reviewed V = verbalizes understanding N/R = needs review N/A = not applicable * Food sources of carbohydrate, adequate serving sizes and its role in various health conditions: R * Differences between complex carbohydrates a simple carbohydrates, role of fiber in diet: R * Lean protein sources of foods: R * Differences between types of fats and role in diet (mono on saturated fat fatty acids, saturated fatty acids, trans fats): R * Food sources of sodium in salt and healthy modifications for heart health in kidney health: R * Vitamins and minerals: N/R * Healthy plate method concept: R * Physical activity: Benefits a precaution: R * Patient Instructions: Continue working on choosing lower salt food, reducing salt to than 1800 mg per day Reduce on portions of pastries, breads Alcohol Make a habit of carrying sandwiches, vegetables for snacks fruits, carrots with you while traveling verses eating out Work on mindful eating continue keeping a food log Coding Level of Care Code Nutr Indiv Subseq (34927) Diagnoses Obesity E66.9 Time Spent (min) 30
[2023-08-02 10:06] VITALS: BMI 46.5
== END 2023-08-02 10:41 | disposition home or self-care (01) ==
PROVIDERS: PCP Nurse Practitioner Family; Visit Provider Dietitian, Registered
DX: E66.9 Obesity, unspecified (principal)

== ENCOUNTER → 2023-08-02 09:52 | Outpatient (BNVA) | payer MEDICARE, SELFPAY | PROVIDERS: PCP Nurse Practitioner Family; Visit Provider Dietitian, Registered | DX: E66.01 Morbid (severe) obesity due to excess calories (principal); Z68.42 Body mass index [BMI] 45.0-49.9, adult; Z71.3 Dietary counseling and surveillance | CPT/HCPCS: 97803 ==

== ENCOUNTER 2023-09-12 09:21 | Outpatient (AMB) | payer MEDICARE, SELFPAY ==
[2023-09-12 09:23] VITALS: BP 142/78; RESP 78; O2SAT 96; BMI 47.3
--- NOTE | 2023-09-12 09:23 | MHC.PC.OV ---
Vital Signs 09/12/23 09:23 09/12/23 09:33 Height 5 ft 3 in Weight 267 lb 4 oz BMI 47.3 BP 142/78 H 140/80 H Blood Pressure Location Lt brachial Rt brachial Position Sitting Sitting Respiration 78 H Pulse Oximetry (%) 96 Oxygen Delivery Method Room Air Intake Visit Reasons: 6 month fu Intake Note: Pt is here today for her 6 month follow up. Allergies white faced hornets Allergy (Unknown, Uncoded 09/12/23 09:30) anaphylaxis Medication List - Last Reconciled 09/12/23 by SHANAE Corea albuterol sulfate 90 mcg/actuation (Ventolin HFA) 2 puffs inhalation Q6H PRN atorvastatin 40 mg PO BEDTIME biotin 10 mg PO DAILY calcium carbonate-vitamin D3 600 mg-12.5 mcg (500 unit) (Calcium 600 with Vitamin D3) 1 cap PO BID 90 days levothyroxine 88 mcg PO DAILY lorazepam 0.5 mg PO BEDTIME PRN Tobacco use date assessed: 09/12/23 Fall risk assessment: No Falls in past year Last assessed Fall Risk: 09/12/23 Dental Screening Dental Screen Date: 09/12/23 Did you have a dental visit in the last 12 months?: No Did you have a dental problem in the last 6 months where you did not have access to dental care?: No Was dental information given to patient?: Patient has dentist HPI 6 month fu HPI Details Obesity: Pt is following up with a hospital education coordinator since March 2023. She has been working on her diet and walking. Pt reports that she is unable to lose weight. BMI is 47.3. Will send wegovy at this point. Hx of aortic stenosis, will order echo. Denies chest pain, shortness of breath, and dizziness. 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 How often do you have a drink containing alcohol?: Monthly or less 2. How many drinks containing alcohol do you have on a typical day when you are drinking?: 1 or 2 3. How often do you have six or more drinks on one occasion?: Never Total Score: 1 Score Reviewed/Action Taken: Yes QUAN-7 AMB Questionnaire QUAN-7 Date QUAN - 7 assessed: 03/09/23 Source: Developed by Drs. J Luis Kern, Fara Harmon, Lamont Lerma and colleagues, with an educational gwen from [employer]. Review of Systems Const Reports as per HPI Physical exam (Primary Care) Vital Signs: Last Vital Signs Resp 78 H 09/12/23 09:23 BP 140/80 H 09/12/23 09:33 Pulse Ox 96 09/12/23 09:23 Oxygen Delivery Method Room Air 09/12/23 09:23 BMI result Body Mass Index 47.3 Tobacco/Smoking Status: Tobacco use Status Tobacco use date assessed 09/12/23 09/12/23 09:28 Patient Tobacco Use Status Former Tobacco user 09/12/23 09:26 e-Cigarette/Vaping Use Never Used 09/12/23 09:26 Thrive Assessment: Date of Thrive Assessment Date Thrive assessed 03/09/23 09/12/23 09:26 Const General: cooperative Nutritional Appearance: obese morbidly obese Orientation/consciousness: patient oriented x3 Resp Effort & Inspection: normal respiratory effort Auscultation: clear to auscultation bilaterally Cardio Rate: regular rate Rhythm: regular rhythm Heart sounds: S1 normal heart sound present, S2 normal heart sound present and Murmur heart sound present systolic Neuro General: patient oriented x3 Psych Appearance: grossly normal Mental Status: mental status grossly normal Speech and movement: Normal speech and movement present Affect: normal affect Attitude: cooperative Thought process: Normal thought process present Thought content: Normal thought content present Insight: Good insight present (Psych) Judgement: Good judgement present (Psych) Assessment and Plan Assessment & Plan (1) Morbid obesity: Code(s): E66.01 - Morbid (severe) obesity due to excess calories Plan: Labs ordered, continue to follow up with hospital education coordinator (2) Aortic stenosis: Code(s): I35.0 - Nonrheumatic aortic (valve) stenosis Plan: Echo ordered Plan The patient agreed to the use of a chief medical technologist for this encounter. Scribed for SHANAE Fuller by Nayely Mehta chief medical technologist, on 09/12/2023 at 09:40 EST. Orders: Orders Complete Blood Count Auto Diff Today E66.01 - Morbid (severe) obesity due to excess calories CA echo transthoracic complete Today I35.0 - Nonrheumatic aortic (valve) stenosis Comprehensive [place]. Panel Fast Today E66.01 - Morbid (severe) obesity due to excess calories TSH reflex Free T4 Today E66.01 - Morbid (severe) obesity due to excess calories UA CC w/rflx Micro + Cult Today E66.01 - Morbid (severe) obesity due to excess calories Lipid Panel Today E66.01 - Morbid (severe) obesity due to excess calories Medications: New semaglutide (weight loss) (Wegovy) administer weeks 1 through 4 of therapy 0.25 mg (0.5 mL) subcut QWEEK 2 mL 0RF semaglutide (weight loss) (Wegovy) administer weeks 1 through 4 of therapy 0.25 mg (0.5 mL) subcut QWEEK 2 mL 0RF Coding Level of Care Code Est Pt Level 3 (45450) Diagnoses Morbid obesity E66.01 Aortic stenosis I35.0
[2023-09-12 09:33] VITALS: BP 140/80
== END 2023-09-12 12:20 | disposition home or self-care (01) ==
PROVIDERS: PCP Nurse Practitioner Family; Visit Provider Nurse Practitioner Family
DX: I35.0 Nonrheumatic aortic (valve) stenosis (principal); E66.01 Morbid (severe) obesity due to excess calories; Z68.42 Body mass index [BMI] 45.0-49.9, adult
CPT/HCPCS: 99213

== ENCOUNTER → 2023-10-25 08:46 | Outpatient (REF) | payer MEDICARE, SELFPAY ==
--- NOTE | 2023-10-25 08:54 | CA_ITS ---
Transthoracic Echocardiogram Patient (Last, First, Middle): Mary Carmen Holbrook, Gender: Female Date of : 1955 Age: 68 Procedure Date: 10/25/2023 Procedure Type: Transthoracic Echocardiogram Location: OP Height: 152.4 cm Weight: 113.4 kg BSA: 2.05 m2 Heart Rate: bpm BP: 140 / 82 mmHg Hand Wood Sander: TO Referring MD: Addi Reynoso [facility] Symptoms: I35.0 - Nonrheumatic aortic (valve) stenosis Study Quality: Fair ECG Rhythm: Sinus Conclusions: - The left ventricular systolic function is normal. The calculated ejection fraction is 64% by biplane method. - There is mildly increased left ventricular wall thickness. - There is moderate septal asymmetric hypertrophy. - Evidence suggests grade II (moderate) diastolic dysfunction. - There is mild aortic valve stenosis. - There is moderate mitral annular calcification. There is mild mitral valve regurgitation. - Small plaque is seen in the sino tubular ridge. Findings Procedure Information The study quality is limited by patients body habitus. Left Ventricle Normal left ventricular cavity size. There is mildly increased left ventricular wall thickness. The left ventricular systolic function is normal. The calculated ejection fraction is 64% by biplane method. There is no evidence of regional wall motion abnormalities. Evidence suggests grade II (moderate) diastolic dysfunction. There is moderate septal asymmetric hypertrophy. Right Ventricle Normal right ventricular cavity size and systolic function. Atria The left atrium is mildly dilated. The right atrium is normal in size. Aortic Valve There is a normal trileaflet aortic valve. There is mild calcification of the aortic valve. There is mild aortic valve stenosis. There is no aortic valve regurgitation. Mitral Valve There is moderate mitral annular calcification. There is mild mitral valve regurgitation. There is no mitral valve stenosis. Pulmonic Valve The pulmonic valve is likely normal. Tricuspid Valve There is trace tricuspid valve regurgitation. There is no evidence of pulmonary hypertension. Great Vessels The asc aorta is normal in size. Small plaque is seen in the sino tubular ridge. Venous The inferior vena cava is mildly dilated and collapses greater than 50% with inspiration. Pericardium/Pleural There is no evidence of pericardial effusion. Prior Study Comparison No significant change compared to prior study dated: 11/11/2021. Measurements 2D Linear Measurements IVSd: 1.27 0.6-0.9/0.6-1.0 cm LVIDd: 4.68 3.9-5.3/4.2-5.9 cm LVIDd Index: 2.28 2.4-3.2/2.2-3.1 cm/m2 LVIDs: 3.05 2.0-3.6 cm LVPWd: 1.10 0.7-1.1 cm LA Diam: 3.50 2.7-3.8/3.0-4.0 cm LAIDs Index: 1.71 1.5-2.3 cm/m2 LV Mass: 257.82 67-162/88-224 g LV Mass Index: 125.76 43-95/49-115 g/m2 LVOT Diam: 2.00 3.0+(-)1.3 cm 2D Systolic Function EF 4C: 64.10 >55% EF 2C: 60.00 >55% EF BiP: 63.70 >55% Mitral Valve MV VTI: 0.52 MV Pk Dk: 1.48 MV Mn Dk: 0.94 MV Pk Grad: 9.00 MV Mn Grad: 4.00 MV Pk E: 1.46 MV PK A: 1.30 MV Decel Time: 289.00 E/A: 1.10 E'Lateral: 6.31 E'Medial: 5.66 E/E' Med: 25.80 E/E' Lat: 23.10 PHT: 85.00 MVA PHT: 2.59 MVA Continuity: 2.11 Decel [place]: 5.04 Aortic Valve AoV Pk Dk: 2.23 AoV Mn Dk: 1.52 AoV VTI: 0.58 AoV Pk Grad: 20.00 Aov Mn Grad: 11.00 SAVI Cont.VTI: 1.89 LVOT LVOT Pk Dk: 1.45 LVOT Mn Dk: 0.93 LVOT VTI: 0.35 LVOT Pk Grad: 8.00 LVOT Mn Grad: 4.00 LVOT Diam: 2.00 LVOT Area: 3.14 Diastolic Function MV Pk E: 1.46 MV Pk A: 1.30 E/A: 1.10 E'Medial: 5.66 E/E' Med: 25.80 E' Laterial: 6.31 E/E' Lat: 23.10 Right Ventricle TAPSE (mm): 25.40 TVS' Dk: 11.00 Tricuspid Valve RA Press: 8.00 Great Vessels Aorta Sinus of Valsalva: 3.63 2.0-3.[address] Ridge: 2.50 1.7-3.4 cm Ao Asc: 3.90 2.1-3.4 cm Ao Arch: 2.70 Updated in Other Vendor System with Status of Final Morgan Gilliam MD electronically signed on 10/25/2023 2:22:16 PM with status of Final
== END ==
LOC: HO.CARD 08:46
PROVIDERS: PCP Nurse Practitioner Family; Visit Provider Nurse Practitioner Family
DX: I35.0 Nonrheumatic aortic (valve) stenosis (principal)
CPT/HCPCS: 93306

== ENCOUNTER → 2023-10-25 08:54 | Outpatient (BNV) | payer MEDICARE, SELFPAY | PROVIDERS: PCP Nurse Practitioner Family; Visit Provider Internal Medicine | DX: I35.0 Nonrheumatic aortic (valve) stenosis (principal); I35.8 Other nonrheumatic aortic valve disorders; I34.0 Nonrheumatic mitral (valve) insufficiency; I42.2 Other hypertrophic cardiomyopathy; I34.81 Nonrheumatic mitral (valve) annulus calcification | CPT/HCPCS: 93306 ==

== ENCOUNTER 2023-10-26 09:28 | Outpatient (AMB) | payer MEDICARE, SELFPAY ==
[2023-10-26 09:44] VITALS: BMI 47.2
--- NOTE | 2023-10-26 09:44 | A.OFFVIS_ITS ---
VS Expanded 10/26/23 09:44 Height 5 ft 3 in Weight 266 lb 8.622 oz BMI 47.2 Intake Visit Reasons: obesity/LVM Allergies white faced hornets Allergy (Unknown, Uncoded 09/12/23 09:30) anaphylaxis Nutrition Presentation Details: Pt presents for MNT f/u for obesity. Pt is frustrated with lack of weight loss. Pt reports making diet modifications, reducing on sugars, choosing lower fat foods with minimal weight loss. Reports keeping physically active, 30 minutes 3 times/week Pt reports choosing water with meals vs sodas/juices Was recently traveling for 2 wks, leading to diff meal routine/meal choices BS Monitoring Most Recent Diabetes Results: No Data to Display PFSH Medical History REAL on CPAP Morbid obesity Sleep apnea COVID-19 Surgical History Hx of colonoscopy Social History Housing: Condominium Patient Tobacco Use Status: Former Tobacco user e-Cigarette/Vaping Use: Never Used Second Hand Smoke Exposure: No service: No 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al status: employed and retired 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: [employer] 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al exposures/hazards: Yes Cognitive needs: No Hearing needs: No Vision needs: No Assessment & Plan Assessment & Plan (1) Obesity: Code(s): E66.9 - Obesity, unspecified Category: Medical Plan: Wt: 121 Kg ( 03/2023 ) 120 kg (04/2023), 119 kg (05/2023), 120 kg (06/2023, 10/28) Est kcal needs as per MSJ: 2100 (40% carb, 30% protein/fat) Est fluid needs as per 25-30 ml/d: 3600 Est prot per day as per 1 g/kg bw: 121 Recommend fiber intake : 8-10 g per day and gradually increase to 25-28 g per day for women and 35-38 g for men or as tolerated Recommend sodium intake per day : less than 2000 mg Educated patient on: ( R = reviewed V = verbalizes understanding N/R = needs review N/A = not applicable * Food sources of carbohydrate, adequate serving sizes and its role in various health conditions: R * Differences between complex carbohydrates a simple carbohydrates, role of fiber in diet: R * Lean protein sources of foods: R * Differences between types of fats and role in diet (mono on saturated fat fatty acids, saturated fatty acids, trans fats): R * Food sources of sodium in salt and healthy modifications for heart health in kidney health: R * Vitamins and minerals: R * Healthy plate method concept: R * Physical activity: Benefits a precaution: R * Relaxation:R Patient Instructions: Continue practicing mindful eating Increase fiber in your diet, snack on vegetables/fruits/konjac root, Alternate breakfast with yogurt and fruit Coding Level of Care Code Nutr Indiv Subseq (50740) Diagnoses Obesity E66.9 Time Spent (min) 20
== END 2023-10-26 10:40 | disposition home or self-care (01) ==
PROVIDERS: PCP Nurse Practitioner Family; Visit Provider Dietitian, Registered
DX: E66.9 Obesity, unspecified (principal)

== ENCOUNTER → 2023-10-26 09:28 | Outpatient (BNVA) | payer MEDICARE, SELFPAY | PROVIDERS: PCP Nurse Practitioner Family; Visit Provider Dietitian, Registered | DX: E66.9 Obesity, unspecified (principal); Z71.3 Dietary counseling and surveillance; Z68.42 Body mass index [BMI] 45.0-49.9, adult | CPT/HCPCS: 97803 ==

== ENCOUNTER 2023-11-08 07:47 | Outpatient (REF) | payer MEDICARE, SELFPAY ==
[2023-11-08 10:07] LABS: MANUAL DIFF FLAG NO
[2023-11-08 10:15] LABS: Basophils Absolute Auto 0.1 X10*3/uL (0.0-0.2); Basophils Percent Auto 0.8 % (0-2); Eosinophils Absolute Auto 0.1 X10*3/uL (0.0-0.4); Eosinophils Percent Auto 0.9 % (0-4); Hematocrit 40.9 % (37.0-47.0); Hemoglobin 12.9 g/dl (12.0-16.0); Imm Gran Abs Auto 0.03 X10*3/uL (0.00-0.03); Imm Gran Pct Auto 0.5 % (0.0-0.4); Lymphocytes Absolute Auto 2.1 X10*3/uL (1.2-4.9); Lymphocytes Percent Auto 31.4 % (20-40); Mean Corpuscular HGB Conc 31.5 g/dl (31.0-35.0); Mean Corpuscular Hemoglobin 31.5 pg (27.0-33.0); Mean Platelet Volume 11.1 fL (9.4-12.3); Monocytes Absolute Auto 0.6 X10*3/uL (0.1-1.2); Monocytes Percent Auto 8.9 % (2-11); Neutrophils Absolute Auto 3.8 x10*3/uL (2.0-8.3); Neutrophils Percent Auto 57.5 % (45-73); Platelet Count 305 X10*3/uL (160-400); Red Blood Count 4.09 X10*6/uL (4.20-5.50); White Blood Count 6.6 X10*3/uL (4.8-10.8)
[2023-11-08 10:35] LABS: Appearance Urine Clear; Color Urine Yellow; Glucose Urine UA Negative (Negative); Leukocyte Esterase Urine Negative (Negative); Nitrite Urine Negative (Negative); Specific Gravity - Urine 1.015 (1.005-1.025); Urine Blood Negative (Negative); Urine Ketones Negative (Negative); Urine Protein Negative (Neg-Trace)
[2023-11-08 10:54] LABS: Alanine Aminotransferase 19 U/L (0-31); Albumin Level 4.2 g/dL (3.5-5.0); Alkaline Phosphatase 101 U/L (39-117); Anion Gap 13 (12-20); Aspartate Amino Transferase 16 U/L (5-31); Bilirubin Total 1.1 mg/dL (0.0-1.0); Blood Urea Nitrogen 15 mg/dL (9-16); Calcium 9.4 mg/dL (8.4-10.2); Carbon Dioxide 25 mmol/L (22-29); Chloride 105 mmol/L (96-108); Cholesterol 166 mg/dL (<200); Estimated Glomerular Filt Rate > 60; Glucose Fasting 99 mg/dL (60-99); HDL Cholesterol 61 mg/dL (>40); LDL Cholesterol Calculated 87 mg/dL (<100); Potassium 4.3 mmol/L (3.3-5.1); Sodium 139 mmol/L (135-145); TSH reflex Free T4 1.48 uIU/mL (0.32-4.0); Total Protein 7.2 g/dL (6.5-8.0); Triglycerides 94 mg/dL (<150)
== END 2023-11-08 07:48 | disposition home or self-care (01) ==
LOC: HO.HMGCLDS 07:47
PROVIDERS: PCP Nurse Practitioner Family; Visit Provider Nurse Practitioner Family
DX: E66.01 Morbid (severe) obesity due to excess calories (principal)
CPT/HCPCS: 36415; 80053; 80061; 81003; 84443; 85025

== ENCOUNTER 2023-12-12 09:11 | Outpatient (AMB) | payer MEDICARE, SELFPAY ==
[2023-12-12 09:16] VITALS: BP 132/72; PULSE 78; O2SAT 97; BMI 46.1
--- NOTE | 2023-12-12 09:16 | A.OFFVIS_ITS ---
Vital Signs 12/12/23 09:16 Height 5 ft 3 in Weight 260 lb BMI 46.1 BP 132/72 Blood Pressure Location Lt brachial Position Sitting Pulse 78 Pulse Source Pulse Oximeter Pulse Oximetry (%) 97 Oxygen Delivery Method Room Air Intake Visit Reasons: Obstructive sleep apnea Intake Note: pt here for follow up and states she is doing well with replacment cpap machine, resmed 11 Ad Compositor Required: No Allergies white faced hornets Allergy (Unknown, Uncoded 12/12/23 09:49) anaphylaxis Medication List - Last Reconciled 12/12/23 by Wili Daniel MD albuterol sulfate 90 mcg/actuation (Ventolin HFA) 2 puffs inhalation Q6H PRN atorvastatin 40 mg PO BEDTIME biotin 10 mg PO DAILY calcium carbonate-vitamin D3 600 mg-12.5 mcg (500 unit) (Calcium 600 with Vitamin D3) 1 cap PO BID 90 days levothyroxine 88 mcg PO DAILY lorazepam 0.5 mg PO BEDTIME PRN Do you need a note to return to daycare/school/sports/work: No HPI HPI Obstructive sleep apnea: Details: CHAVO, 68 YEARS OLD FEMALE CAME ALONG WITH HER , FOR FOLLOW-UP. SHE HAS LONGSTANDING HISTORY OF OBSTRUCTIVE SLEEP APNEA , AND HAS BEEN USING CPAP MANY YEARS. RECENTLY HAS RECEIVED HER NEW CPAP DEVICE WHICH IS WORKING WELL AND SHE IS VERY HAPPY WITH THE NEW MACHINE. SHE USES EVERY NIGHT BETWEEN 7-8 HOURS PER NIGHT AND SLEEPS GOOD. SOMETIME WHEN SHE GOES FOR A FEW NIGHTS OUT OF THE TOWN ALONG WITH HER , SHE TAKES THE OLD CPAP MACHINE WITH HER. SHE WAKES UP REFRESHED AND HAS NO DAYTIME SLEEPINESS. FAR WEIGHT IS CONCERNED SHE IS DOING HER BEST, IN DIETING AND PHYSICAL ACTIVITY HAS LOST ABOUT 6 LB SINCE LAST VISIT. [facility] Medical History REAL on CPAP Morbid obesity Sleep apnea COVID-19 Surgical History Hx of colonoscopy Social History Housing: [facility] Patient Tobacco Use Status: Former Tobacco user e-Cigarette/Vaping Use: Never Used Second Hand Smoke Exposure: No service: No 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al status: employed and retired 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: [employer] 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al exposures/hazards: Yes Cognitive needs: No Hearing needs: No Vision needs: No Review of Systems Const All systems reviewed & are unremarkable except as noted in HPI and below Denies snoring Eyes Reports no additional complaints ENT Reports no additional complaints Card Denies chest pain, Denies syncope, Denies irregular heart rhythm and Denies dyspnea Resp Denies cough, Denies dyspnea, Denies snoring and Denies wheezing GI Reports no additional complaints Reports no additional complaints Musc Reports no additional complaints Skin/Breast Reports system reviewed and no additional complaints, except as documented Neuro Reports no additional complaints and Denies syncope Psych Reports no additional complaints Endo Reports no additional complaints Jamarcus/Lymph Reports no additional complaints Aller/Immun Reports no additional complaints and Denies wheezing Physical Exam Vital Signs: Last Vital Signs Pulse 78 12/12/23 09:16 BP 132/72 12/12/23 09:16 Pulse Ox 97 12/12/23 09:16 Oxygen Delivery Method Room Air 12/12/23 09:16 BMI result Body Mass Index 46.1 Const General: healthy appearing (EXCEPT FOR BEING OVERWEIGHT), comfortable, no acute distress, alert and awake Orientation/consciousness: patient oriented x3 HEENT Head: Yes normal to inspection General nose exam: No nasal polyps present and No nasal discharge present Face and sinus: Yes sinuses nontender Mouth: oropharynx normal Throat: Yes posterior oropharynx normal Eyes General: appearance normal, both eyes and all related structures Neck Neck: Yes normal visual inspection, Yes no lymphadenopathy, Yes trachea midline and Yes no JVD Thyroid: Thyroid normal Chest Chest palpation & inspection: normal inspection of the chest, normal palpation of entire chest wall and no tenderness Resp Effort & Inspection: normal respiratory effort Auscultation: clear to auscultation bilaterally, no crackles, no rhonchi and no wheezes Cardio Palpation: normal PMI Rate: regular rate Rhythm: regular rhythm Heart sounds: no gallops and no murmurs Peripheral pulses: Peripheral pulses 2+ throughout GI Palpation (GI): Soft to palpation, nontender, No hepatosplenomegaly present and no masses Auscultation: normal bowel sounds Back/Spine/Pelvis Thoracic/Lumbar Spine: thoracic and lumbar spine normal to inspection Skin General skin exam: no rashes or lesions noted Neuro General: patient oriented x3 and no focal motor deficits Cranial nerves: Yes CN's II-XII intact bilaterally Extrem General: Yes normal to inspection, Yes no clubbing, cyanosis or edema and Yes no calf tenderness Psych Appearance: grossly normal and well kempt Speech and movement: Normal speech and movement present Results Reviewed Results Reviewed: COMPLIANCE REPORT FOR THE LAST 30 NIGHTS REVIEWED. SHE USED 26/30 NIGHTS, 87%. THE OTHER 4 NIGHTS, SHE WAS OUT OF TOWN AND USED HER OLD MACHINE. SO PRACTICALLY SHE HAS USED 100% OF THE TIME. AVERAGE USE IT PER NIGHT 7 HOURS 50 MINUTES. NO ISSUES WITH THE MASK OR CPAP MACHINE. THERE IS MINIMAL AIR LEAK RESIDUAL AHI ONLY 1.7 Assessment & Plan Assessment & Plan (1) Obesity: Comment: LONGSTANDING, MORBID OBESITY, CURRENT BMI 46.1 SHE REMAINS PHYSICALLY VERY ACTIVE. WATCHING HER DIET MUCH SHE CAN. Code(s): E66.9 - Obesity, unspecified Category: Medical Plan: DISCUSSED ABOUT DIETING AND PHYSICAL ACTIVITY. CONTINUE TO TRY LOSING 1 OR 2 LB EVERY MONTH. (2) REAL on CPAP: Comment: LONGSTANDING HISTORY OF OBSTRUCTIVE SLEEP APNEA EXPECTED FROM HER BODY SIZE. HAS BEEN USING CPAP VERY REGULARLY AND SLEEPING WELL, NEW CPAP DEVICE IS WORKING VERY WELL, SHE USES EVERY NIGHT BETWEEN 7-8 HOURS AND HAS EXCELLENT SLEEP. Code(s): G47.33 - Obstructive sleep apnea (adult) (pediatric) Category: Medical Plan: COMMENDED FOR GOOD COMPLIANCE AND ADVISED TO CONTINUE USING IT EVERY NIGHT Coding Level of Care Code Est Pt Level 3 (45420) Diagnoses Obesity E66.9 REAL on CPAP G47.33
== END 2023-12-12 09:41 | disposition home or self-care (01) ==
PROVIDERS: PCP Nurse Practitioner Family; Visit Provider Internal Medicine
DX: E66.9 Obesity, unspecified (principal); G47.33 Obstructive sleep apnea (adult) (pediatric)
CPT/HCPCS: 99213

== ENCOUNTER → 2023-12-12 09:11 | Outpatient (BNVA) | payer MEDICARE, SELFPAY | PROVIDERS: PCP Nurse Practitioner Family; Visit Provider Internal Medicine | DX: G47.33 Obstructive sleep apnea (adult) (pediatric) (principal); E66.01 Morbid (severe) obesity due to excess calories; Z68.42 Body mass index [BMI] 45.0-49.9, adult; Z99.89 Dependence on other enabling machines and devices | CPT/HCPCS: 99212 ==

== ENCOUNTER 2024-01-31 09:56 | Outpatient (AMB) | payer MEDICARE, SELFPAY ==
[2024-01-31 10:29] VITALS: BMI 46.3
--- NOTE | 2024-01-31 10:29 | A.OFFVIS_ITS ---
VS Expanded 01/31/24 10:29 Height 5 ft 3 in Weight 261 lb 2.2 oz BMI 46.3 Intake Visit Reasons: Obesity/CONFIRMED Allergies white faced hornets Allergy (Unknown, Uncoded 12/12/23 09:49) anaphylaxis Nutrition Presentation Details: Pt presents for MNT f/u for obesity Pt reports continuing to work on dietary modifications Has started to monitor physical activity, walking 30 min /day BS Monitoring Most Recent Diabetes Results: Cholesterol 166 mg/dL (<200) 11/08/23 HDL Cholesterol 61 mg/dL (>40) 11/08/23 Triglycerides 94 mg/dL (<150) 11/08/23 Creatinine 0.74 mg/dL (0.5-1.4) 11/08/23 Blood Urea Nitrogen 15 mg/dL (9-16) 11/08/23 Sodium 139 mmol/L (135-145) 11/08/23 Potassium 4.3 mmol/L (3.3-5.1) 11/08/23 Chloride 105 mmol/L (96-108) 11/08/23 Carbon Dioxide 25 mmol/L (22-29) 11/08/23 Calcium 9.4 mg/dL (8.4-10.2) 11/08/23 AST 16 U/L (5-31) 11/08/23 ALT 19 U/L (0-31) 11/08/23 Total Protein 7.2 g/dL (6.5-8.0) 11/08/23 Albumin 4.2 g/dL (3.5-5.0) 11/08/23 PFSH Medical History REAL on CPAP Morbid obesity Sleep apnea COVID-19 Surgical History Hx of colonoscopy Social History Housing: Condominium Patient Tobacco Use Status: Former Tobacco user e-Cigarette/Vaping Use: Never Used Second Hand Smoke Exposure: No service: No 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al status: employed and retired 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al exposures/hazards: Yes Cognitive needs: No Hearing needs: No Vision needs: No Assessment & Plan Assessment & Plan (1) Obesity: Code(s): E66.9 - Obesity, unspecified Category: Medical Plan: Wt: 121 Kg ( 03/2023 ) 120 kg (04/2023), 119 kg (05/2023), 120 kg (06/2023, 10/28), 119 kg (01/28) Est kcal needs as per MSJ: 2100 (40% carb, 30% protein/fat ) Est fluid needs as per 25-30 ml/d: 3600 Est prot per day as per 1 g/kg bw: 121 Recommend fiber intake : 8-10 g per day and gradually increase to 25-28 g per day for women and 35-38 g for men or as tolerated Recommend sodium intake per day : less than 2000 mg Educated patient on: ( R = reviewed V = verbalizes understanding N/R = needs review N/A = not applicable * Food sources of carbohydrate, adequate serving sizes and its role in various health conditions: R * Differences between complex carbohydrates a simple carbohydrates, role of fiber in diet: R * Lean protein sources of foods: R * Differences between types of fats and role in diet (mono on saturated fat fatty acids, saturated fatty acids, trans fats): R * Food sources of sodium in salt and healthy modifications for heart health in kidney health: R * Vitamins and minerals: R * Healthy plate method concept: R * Physical activity: Benefits a precaution: R * Relaxation:R Patient Instructions: HAve yogurt and fruit for breakfast Coding Level of Care Code Nutr Indiv Subseq (47164) Diagnoses Obesity E66.9 Time Spent (min) 20
== END 2024-01-31 10:44 | disposition home or self-care (01) ==
PROVIDERS: PCP Nurse Practitioner Family; Visit Provider Dietitian, Registered
DX: E66.9 Obesity, unspecified (principal)

== ENCOUNTER → 2024-01-31 09:56 | Outpatient (BNVA) | payer MEDICARE, SELFPAY | PROVIDERS: PCP Nurse Practitioner Family; Visit Provider Dietitian, Registered | DX: E66.9 Obesity, unspecified (principal); Z71.3 Dietary counseling and surveillance; Z68.42 Body mass index [BMI] 45.0-49.9, adult | CPT/HCPCS: 97803 ==

== ENCOUNTER 2024-03-22 10:51 | Outpatient (AMB) | payer MEDICARE, SELFPAY ==
[2024-03-22 10:53] VITALS: BP 130/78; PULSE 76; O2SAT 98; BMI 46.6
--- NOTE | 2024-03-22 10:53 | A.OFFPC_ITS ---
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 Required: No Accompanied by: Self / Same As Patient Allergies white faced hornets Allergy (Unknown, Uncoded 03/22/24 11:23) anaphylaxis Medication List - Last Reconciled 03/22/24 by SHANAE Corea albuterol sulfate 90 mcg/actuation (Ventolin HFA) 2 puffs inhalation Q6H PRN atorvastatin 40 mg PO BEDTIME biotin 10 mg PO DAILY calcium carbonate-vitamin D3 600 mg-12.5 mcg (500 unit) (Calcium with Vit D3) 1 cap PO BID 90 days levothyroxine 88 mcg PO DAILY lorazepam 0.5 mg PO BEDTIME PRN Tobacco use date assessed: 03/22/24 Fall risk assessment: No Falls in past year Last assessed Fall Risk: 03/22/24 Dental Screening Dental Screen Date: 03/22/24 Did you have a dental visit in the last 12 months?: Yes Did you have a dental problem in the last 6 months where you did not have access to dental care?: No Was dental information given to patient?: Patient has dentist HPI PE HPI Details Patient is here for physical exam. She is working with a cytogenetics technologist for weight loss. She will call her insurance to see if the GLP 1 agonist is covered. Her colon screen is up-to-date. Mammogram is up-to-date. Lab orders entered. Bone density ordered. Told her she can get her shingles vaccination and flu vaccination at her pharmacy. PFSH Medical History REAL on CPAP Morbid obesity Sleep apnea COVID-19 Surgical History Hx of colonoscopy [facility] Patient Tobacco Use Status: Former Tobacco user e-Cigarette/Vaping Use: Never Used Second Hand Smoke Exposure: No service: No 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al status: employed and retired 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: [employer] 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al exposures/hazards: Yes Cognitive needs: No Hearing needs: No Vision needs: No Questionnaire PHQ-9 Over the last 2 weeks, how often have you been bothered by any of the following problems? 1. Little interest or pleasure in doing things: not at all 2. Feeling down, depressed, or hopeless: not at all 3. Trouble falling or staying asleep, or sleeping too much: not at all 4. Feeling tired or having little energy: not at all 5. Poor appetite or overeating: not at all 6. Feeling bad about yourself - or that you are a failure or have let yourself or your family down: not at all 7. Trouble concentrating on things, such as reading the newspaper or watching television: not at all 8. Moving or speaking so slowly that other people could have noticed. Or the opposite - being so fidgety or restless that you have been moving around a lot more than usual: not at all 9. Thoughts that you would be better off or of hurting yourself in some way: not at all Total score: 0 Depression Screening Interpretation: Negative Depression Screening Done: Yes 51397 - PHQ-9 Billing: Yes Source: Developed by Drs. J Luis Kern, Fara Harmon, Lamont Lerma and colleagues, with an educational gwen from [employer]. Thrive Questionnaire Date Thrive assessed: 03/22/24 I am a: Patient What is your living situation today?: I have a steady place to live Within the past 12 months, did the food you bought not last and you didn't have the money to get more?: Never true Within the past 12 months, did you worry whether your food would run out before you got money to buy more?: Never true Do you have trouble paying for medicines?: No Do you have trouble getting transportation to medical appointments?: No Do you have trouble paying your heating and electricity bill?: No Do you have trouble taking care of your child, family member or friend?: No Do you have trouble with day-to-day activities such as bathing, preparing meals, shopping, managing finances, etc.?: No Are you currently unemployed and looking for a job?: No Are you interested in more education?: No Please select the resources that you would like help with: None Currently or been in a relationship where the following occur: No concerns reported THRIVE Score: 0 AUDIT C Alcohol Use Questionnaire (AUDIT-C) 1. How often do you have a drink containing alcohol?: Monthly or less 2. How many drinks containing alcohol do you have on a typical day when you are drinking?: 1 or 2 3. How often do you have six or more drinks on one occasion?: Never Total Score: 1 Score Reviewed/Action Taken: Yes QUAN-7 AMB Questionnaire QUAN-7 Date QUAN - 7 assessed: 03/22/24 Feeling nervous, anxious, or on edge: 0 = Not at all Not being able to stop or control worryin = Not at all Worrying too much about different things: 1 = Several days Trouble relaxin = Not at all Being so restless that it is hard to sit still: 0 = Not at all Becoming easily annoyed or irritable: 0 = Not at all Feeling afraid as if something awful might happen: 0 = Not at all Total QUAN-7 score (0-4 normal; 5-9 mild; 10-14 moderate; 15-21 severe): 1 Source: Developed by Drs. J Luis Kern, Fara Harmon, Lamont Lerma and colleagues, with an educational gwen from [employer]. QUAN-7 Assessment Billing QUAN-7 Assessment Tool: QUAN-7 Assessment 42826 Review of Systems Const Denies chills and Denies fever(s) Eyes Denies blurry vision ENT Denies vertigo, Denies dizziness and Denies sore throat Card Denies chest pain at rest, Denies chest pain with activity, Denies diaphoresis, Denies dyspnea and Denies dyspnea on exertion Resp Denies cough, Denies dyspnea, Denies dyspnea on exertion and Denies wheezing GI Denies abdominal pain, Denies melena, Denies hematochezia, Denies constipation, Denies diarrhea and Denies loose stools Denies hematuria Musc Denies numbness and Denies tingling Skin/Breast Denies lesions Neuro Denies vertigo, Denies dizziness, Denies numbness and Denies tingling Psych Denies anxiety, Denies depression, Denies homicidal ideation, Denies suicidal ideation and Denies other (substance abuse) Aller/Immun Denies wheezing Physical exam (Primary Care) Vital Signs: Last Vital Signs Pulse 76 03/22/24 10:53 BP 130/78 03/22/24 10:53 Pulse Ox 98 03/22/24 10:53 Oxygen Delivery Method Room Air 03/22/24 10:53 BMI result Body Mass Index 46.6 Tobacco/Smoking Status: Tobacco use Status Tobacco use date assessed 03/22/24 03/22/24 10:55 Patient Tobacco Use Status Former Tobacco user 03/22/24 10:54 e-Cigarette/Vaping Use Never Used 03/22/24 10:54 PHQ-9: PHQ-9 Score PHQ-9: Total score 0 03/22/24 10:55 Depression Screening Interpretation: Negative Thrive Assessment: Date of Thrive Assessment Date Thrive assessed 03/22/24 03/22/24 10:55 Currently or been in a relationship where the following occur: No concerns reported Const General: cooperative Nutritional Appearance: well nourished and obese morbidly obese Orientation/consciousness: patient oriented x3 HENMT Head: Yes normal to inspection, Yes normocephalic and Yes atraumatic Ears: TM normal on the right and TM normal on the left Eyes General: appearance normal, both eyes and all related structures Alignment and Position: alignment normal and position normal Neck Neck: Yes normal visual inspection, Yes no lymphadenopathy and Yes supple Resp Effort & Inspection: normal respiratory effort Auscultation: clear to auscultation bilaterally Cardio Rate: regular rate Rhythm: regular rhythm Heart sounds: S1 normal heart sound present, S2 normal heart sound present and Murmur heart sound present systolic GI Palpation (GI): Soft to palpation and nontender Auscultation: normal bowel sounds Skin Rashes: no rashes Neuro General: patient oriented x3, moves all extremities, no focal motor deficits and deep tendon reflexes 2+ bilaterally Romberg Test: Negative Extrem Right lower extremity: no edema Left lower extremity: no edema Psych Affect: normal affect Attitude: cooperative Thought process: Normal thought process present Coding Level of Care Code Est Pt Prev Care >65y(26303) Diagnoses Physical exam Z00.00 Vitamin D deficiency E55.9 Postmenopause Z78.0 Additional Codes QUAN-7 Assessment Billing - QUAN-7 Assessment Tool: QUAN-7 Assessment 45841 ([id number]) PHQ-9 - 97469 - PHQ-9 Billing: Yes ([id number]) Assessment & Plan Assessment & Plan (1) Physical exam: Code(s): Z00.00 - Encounter for general adult medical examination without abnormal findings Category: Medical (2) Vitamin D deficiency: Code(s): E55.9 - Vitamin D deficiency, unspecified Category: Medical (3) Postmenopause: Code(s): Z78.0 - Asymptomatic menopausal state Category: Medical Plan . Orders: Orders Complete Blood Count Auto Diff Today Z00.00 - Encounter for general adult medical examination without abnormal findings UA CC w/rflx Micro + Cult Today Z00.00 - Encounter for general adult medical examination without abnormal findings Vitamin D 25-OH Total Today E55.9 - Vitamin D deficiency, unspecified XR DEXA axial skeleton Today E55.9 - Vitamin D deficiency, unspecified, Z78.0 - Asymptomatic menopausal state Comprehensive Dawson. Panel Fast Today Z00.00 - Encounter for general adult medical examination without abnormal findings TSH reflex Free T4 Today Z00.00 - Encounter for general adult medical examination without abnormal findings Lipid Panel Today Z00.00 - Encounter for general adult medical examination without abnormal findings
== END 2024-03-22 12:07 | disposition home or self-care (01) ==
PROVIDERS: PCP Nurse Practitioner Family; Visit Provider Nurse Practitioner Family
DX: Z00.00 Encounter for general adult medical examination without abnormal findings (principal); E55.9 Vitamin D deficiency, unspecified; Z78.0 Asymptomatic menopausal state

== ENCOUNTER → 2024-03-22 10:51 | Outpatient (BNVA) | payer MEDICARE, SELFPAY | PROVIDERS: PCP Nurse Practitioner Family; Visit Provider Nurse Practitioner Family | DX: Z00.00 Encounter for general adult medical examination without abnormal findings (principal); E55.9 Vitamin D deficiency, unspecified; Z78.0 Asymptomatic menopausal state | CPT/HCPCS: 96127; 99397 ==

== ENCOUNTER 2024-05-24 08:08 | Outpatient (REF) | payer MEDICARE, SELFPAY ==
--- NOTE | ~2024-05-24 | MM_ITS ---
EXAMINATION: DXA BONE DENSITY AXIAL HISTORY: Estrogen deficiency TECHNIQUE: [place] Dual energy absorptiometry (DEXA) of the lumbar spine, total left hip, and femoral neck was performed. COMPARISON: Comparison is made with the prior examination dated 05/20/2022. FINDINGS: The bone mineral density of the lumbar spine is 0.986 with a T-score of -1.8, and a Z-score of -1.3. This is indicative of osteopenia. This represents a BMD change of 1.0% compared to the prior exam. This is not statistically significant. The bone mineral density of the left total hip is 0.979 with a T-score of -0.2, and a Z-score of 0.3. This is indicative of normal bone mineral density. This represents a BMD change of 10.0% compared to the prior exam. This is statistically significant. The bone mineral density of the left femoral neck is 0.774 with a T-score of -1.9, and a Z-score of -1.0. This is indicative of osteopenia. This represents a BMD change of 5.2% compared to the prior exam. FRACTURE RISK: The FRAX index suggests a ten year probability of major osteoporotic fracture of 9.1%, and of hip fracture 1.4%. MM/XR DEXA axial skeleton IMPRESSION: Based on bone mineral density, and according to World Health Organization (WHO) criteria, the diagnosis is consistent with osteopenia. All bone density values are in grams per centimeter squared (g/cm2). Statistically, 68% of repeat scans fall within 1 SD (+/- 0.010 g/cm2 for AP spine L1-L4) and 1 SD (+/- 0.012 g/cm2 for femur total) FRAX is a trademark of the [employer]'s [place] for Metabolic Bone Disease, a World Health Organization (WHO) Collaborating Center. Electronically signed by: J Luis Mueller MD 05/24/2024 09:24 AM EDT
== END 2024-05-24 08:09 | disposition home or self-care (01) ==
LOC: HO.MAMMO 08:08
PROVIDERS: PCP Nurse Practitioner Family; Visit Provider Nurse Practitioner Family
DX: Z13.820 Encounter for screening for osteoporosis (principal); Z78.0 Asymptomatic menopausal state; E55.9 Vitamin D deficiency, unspecified
CPT/HCPCS: 77080

== ENCOUNTER → 2024-05-24 08:15 | Outpatient (BNV) | payer MEDICARE, SELFPAY | PROVIDERS: PCP Nurse Practitioner Family; Visit Provider Radiology Diagnostic Radiology | DX: E28.39 Other primary ovarian failure (principal) | CPT/HCPCS: 77080 ==

== ENCOUNTER 2024-05-29 09:43 | Outpatient (AMB) | payer MEDICARE, SELFPAY ==
[2024-05-29 10:14] VITALS: BMI 45.8
--- NOTE | 2024-05-29 10:14 | A.OFFVIS_ITS ---
VS Expanded 05/29/24 10:14 Height 5 ft 3 in Weight 258 lb 6.108 oz BMI 45.8 Intake Visit Reasons: Obesity Allergies white faced hornets Allergy (Unknown, Uncoded 03/22/24 11:23) anaphylaxis Nutrition Presentation Details: Pt presents for MNT f/u for obesity Pt has hx of sleep apnea , uses cpap machine for over 10 yrs, osteopenia Pt becoming discouraged due to diet modifications and minimal weight loss, Reports this time she is trying a meal replacement on a daily basis, different flavors . Pt reports having 3 meals/day B: ham/noodles, 1 cup of fruit L: protein shake (30 g ) with celery sticks coffee , salad with chicken Dinner: 4 ozp protein , potato, string beans Pt reports having a meal replacement once a day physical activity: tracking steps 5-7 thousands/d fluids : 16-24 oz /day + milk/water eating out : reducing portion when eating out Has water with lemon eating slower choosing smaller plates BS Monitoring Most Recent Diabetes Results: Cholesterol 166 mg/dL (<200) 11/08/23 HDL Cholesterol 61 mg/dL (>40) 11/08/23 Triglycerides 94 mg/dL (<150) 11/08/23 Creatinine 0.74 mg/dL (0.5-1.4) 11/08/23 Blood Urea Nitrogen 15 mg/dL (9-16) 11/08/23 Sodium 139 mmol/L (135-145) 11/08/23 Potassium 4.3 mmol/L (3.3-5.1) 11/08/23 Chloride 105 mmol/L (96-108) 11/08/23 Carbon Dioxide 25 mmol/L (22-29) 11/08/23 Calcium 9.4 mg/dL (8.4-10.2) 11/08/23 AST 16 U/L (5-31) 11/08/23 ALT 19 U/L (0-31) 11/08/23 Total Protein 7.2 g/dL (6.5-8.0) 11/08/23 Albumin 4.2 g/dL (3.5-5.0) 11/08/23 [facility] Medical History REAL on CPAP Morbid obesity Sleep apnea COVID-19 Surgical History Hx of colonoscopy Social History Housing: Condominium Patient Tobacco Use Status: Former Tobacco user e-Cigarette/Vaping Use: Never Used Second Hand Smoke Exposure: No service: No 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al status: employed and retired 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: [employer] 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al exposures/hazards: Yes Cognitive needs: No Hearing needs: No Vision needs: No Assessment & Plan Assessment & Plan (1) Obesity: Code(s): E66.9 - Obesity, unspecified Category: Medical Plan: Wt: 121 Kg ( 03/2023 ) 119 kg (01/28), 117 kg (05/29) Est kcal needs as per MSJ: 4643-9615 (40% carb, 30% protein/fat) Est fluid needs as per 25-30 ml/d: 3500 Est prot per day as per 1 g/kg bw: 115 Recommend fiber intake : 8-10 g per day and gradually increase to 25-28 g per day for women and 35-38 g for men or as tolerated Recommend sodium intake per day : less than 2000 mg Educated patient on: ( R = reviewed V = verbalizes understanding N/R = needs review N/A = not applicable * Food sources of carbohydrate, adequate serving sizes and its role in various health conditions: R * Differences between complex carbohydrates a simple carbohydrates, role of fiber in diet: R * Lean protein sources of foods: R * Differences between types of fats and role in diet (mono on saturated fat fatty acids, saturated fatty acids, trans fats): R * Food sources of sodium in salt and healthy modifications for heart health in kidney health: R * Vitamins and minerals: R * Healthy plate method concept: R * Physical activity: Benefits a precaution: R * Relaxation:R Patient Instructions: Continue physically active, try 30 minutes consecutively 3 times a week - unless otherwise specified by your doctor try high fiber snacks/shakes (celery/cucumbers/ranjit/lemon Coding Level of Care Code Nutr Indiv Subseq (44444) Diagnoses Obesity E66.9 Time Spent (min) 30
== END 2024-05-29 10:43 | disposition home or self-care (01) ==
LOC: HO.ENCR 09:44
PROVIDERS: PCP Nurse Practitioner Family; Visit Provider Dietitian, Registered
DX: E66.9 Obesity, unspecified (principal)

== ENCOUNTER → 2024-05-29 09:43 | Outpatient (BNVA) | payer MEDICARE, SELFPAY | PROVIDERS: PCP Nurse Practitioner Family; Visit Provider Dietitian, Registered | DX: E66.9 Obesity, unspecified (principal); Z68.42 Body mass index [BMI] 45.0-49.9, adult | CPT/HCPCS: 97803 ==

== ENCOUNTER 2024-06-12 09:25 | Outpatient (AMB) | payer MEDICARE, SELFPAY ==
[2024-06-12 09:30] VITALS: BP 140/80; PULSE 90; O2SAT 98; BMI 46.9
--- NOTE | 2024-06-12 09:30 | A.OFFVIS_ITS ---
Vital Signs 06/12/24 09:30 Height 5 ft 3 in Weight 264 lb 8.875 oz BMI 46.9 BP 140/80 H Blood Pressure Location Lt brachial Position Sitting Pulse 90 Pulse Source Pulse Oximeter Pulse Oximetry (%) 98 Oxygen Delivery Method Room Air Intake Visit Reasons: Obstructive sleep apnea Intake Note: pt is here for follow up of REAL Sand Polisher Required: No Allergies white faced hornets Allergy (Unknown, Uncoded 06/12/24 10:07) anaphylaxis Medication List - Last Reconciled 06/12/24 by Wili Daniel MD albuterol sulfate 90 mcg/actuation (Ventolin HFA) 2 puffs inhalation Q6H PRN atorvastatin 40 mg PO BEDTIME biotin 10 mg PO DAILY calcium carbonate-vitamin D3 600 mg-12.5 mcg (500 unit) (Calcium with Vit D3) 1 cap PO BID 90 days levothyroxine 88 mcg PO DAILY lorazepam 0.5 mg PO BEDTIME PRN Do you need a note to return to daycare/school/sports/work: No HPI HPI Obstructive sleep apnea: Details: Patient is here today for six-month follow-up She reports feeling well and denies any recent respiratory illnesses Denies cough or any increase in shortness of breath Reports has been sleeping while using her CPAP machine. Patient with concerns regarding her weight despite being physically active and limiting portion sizes. Reviewed with patient anti obesity injections and instructed patient to follow-up with primary care provider. [facility], [facility] Medical History REAL on CPAP Morbid obesity Sleep apnea COVID-19 Surgical History Hx of colonoscopy Social History [facility] Patient Tobacco Use Status: Former Tobacco user e-Cigarette/Vaping Use: Never Used Second Hand Smoke Exposure: No service: No 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al status: employed and retired 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al exposures/hazards: Yes Cognitive needs: No Hearing needs: No Vision needs: No Review of Systems Const All systems reviewed & are unremarkable except as noted in HPI and below Denies snoring Eyes Reports no additional complaints ENT Reports no additional complaints Card Denies chest pain, Denies syncope, Denies irregular heart rhythm and Denies dyspnea Resp Denies cough, Denies dyspnea, Denies snoring and Denies wheezing GI Reports no additional complaints Reports no additional complaints Musc Reports no additional complaints Skin/Breast Reports system reviewed and no additional complaints, except as documented Neuro Reports no additional complaints and Denies syncope Psych Reports no additional complaints Endo Reports no additional complaints Jamarcus/Lymph Reports no additional complaints Aller/Immun Reports no additional complaints and Denies wheezing Physical Exam Vital Signs: Last Vital Signs Pulse 90 06/12/24 09:30 BP 140/80 H 06/12/24 09:30 Pulse Ox 98 06/12/24 09:30 Oxygen Delivery Method Room Air 06/12/24 09:30 BMI result Body Mass Index 46.9 Const General: healthy appearing (EXCEPT FOR BEING OVERWEIGHT), comfortable, no acute distress, alert and awake Orientation/consciousness: patient oriented x3 HEENT Head: Yes normal to inspection General nose exam: No nasal polyps present and No nasal discharge present Face and sinus: Yes sinuses nontender Mouth: oropharynx normal Throat: Yes posterior oropharynx normal Eyes General: appearance normal, both eyes and all related structures Neck Neck: Yes normal visual inspection, Yes no lymphadenopathy, Yes trachea midline and Yes no JVD Thyroid: Thyroid normal Chest Chest palpation & inspection: normal inspection of the chest, normal palpation of entire chest wall and no tenderness Resp Effort & Inspection: normal respiratory effort Auscultation: clear to auscultation bilaterally, no crackles, no rhonchi and no wheezes Cardio Palpation: normal PMI Rate: regular rate Rhythm: regular rhythm Heart sounds: no gallops and no murmurs Peripheral pulses: Peripheral pulses 2+ throughout GI Palpation (GI): Soft to palpation, nontender, No hepatosplenomegaly present and no masses Auscultation: normal bowel sounds Back/Spine/Pelvis Thoracic/Lumbar Spine: thoracic and lumbar spine normal to inspection Skin General skin exam: no rashes or lesions noted Neuro General: patient oriented x3 and no focal motor deficits Cranial nerves: Yes CN's II-XII intact bilaterally Extrem General: Yes normal to inspection, Yes no clubbing, cyanosis or edema and Yes no calf tenderness Psych Appearance: grossly normal and well kempt Speech and movement: Normal speech and movement present Results Reviewed Results Reviewed: CPAP compliance reviewed patient with excellent compliance using 29/30 days for an average of 7 hours and 41 minutes Assessment & Plan Assessment & Plan (1) REAL on CPAP: Comment: LONGSTANDING HISTORY OF OBSTRUCTIVE SLEEP APNEA EXPECTED FROM HER BODY SIZE. HAS BEEN USING CPAP VERY REGULARLY AND SLEEPING WELL, CPAP DEVICE IS WORKING VERY WELL, SHE USES EVERY NIGHT BETWEEN 7-8 HOURS AND HAS EXCELLENT SLEEP. Code(s): G47.33 - Obstructive sleep apnea (adult) (pediatric) Category: Medical Plan: Continue using CPAP regularly, commended for excellent CPAP use. Follow-up with primary care provider regarding anti obesity injections. (2) Morbid obesity: Comment: BMI=46.9 CONTINUES TO BE MORBIDLY OBESE BUT OVERALL THE WEIGHT HAS BEEN STABLE. SHE CLAIMS THAT SHE WATCHES HER DIET VERY CAREFULLY. Code(s): E66.01 - Morbid (severe) obesity due to excess calories Category: Medical Plan: WE HAD A LONG DISCUSSION ABOUT THE WEIGHT. SHE IS ALREADY WATCHING HER DIET CAREFULLY AND I ENCOURAGED HER TO START WALKING ON A DAILY BASIS. SHE SHE WAS ENQUIRING ABOUT USE OF ANTI OBESITY MEDS. I DIRECTED HER TO DISCUSS IT WITH THE PRIMARY CARE PHYSICIAN Coding Level of Care Code Est Pt Level 3 (76582) Diagnoses REAL on CPAP G47.33 Morbid obesity E66.01
--- OUTSIDE RECORDS SUMMARY | 2024-06-12 10:32 | XMS_ITS | Clinical Summary ---
Author Organization [address] Address [address] [place], [place] Phone Care Team Providers Care Certified Cytotechnologist Name Role Phone Carlyn Ray MD Primary Care Provider Encounters Date Type Department Care Team Description 04/26/2024 9:02 AM EST - 04/26/2024 11:59 PM [facility] Hospital Encounter Radiology Department - [address] [phone] Encounter for screening mammogram for breast cancer Discharge Disposition: Home or Self Care from Last 3 Months Surgical History Surgery Date Site/Laterality Comments TUBAL LIGATION PROCEDURE: HISTORICAL TUBAL LIGATION FOOT SURGERY 2008 PROCEDURE: HISTORICAL FOOT SURGERY; COMMENT: bunionectomy Medical History Medical History Date Comments Hypercholesteremia 05/04/2011 DX:Hyperchole steremia Depression 05/04/2011 DX:Depression Family History Medical History Relation Name Comments Other: Other Father aneurysm ( stom ach) Other: cardiac issues Father's side Dementia Maternal Grandmother Breast cancer Mother's side m. grt aunt Colon cancer Neg Hx Ovarian cancer Neg Hx Relation Name Status Comments Father Father's side Maternal Grandmother Mother's side m. grt aunt Social History Tobacco Use Types Packs/Day Years Used Date Smoking Tobacco: Never Smokeless Tobacco: Never Alcohol Use Standard Drinks/Week Comments Yes 0 (1 standard drink = 0.6 oz pur e alcohol) Comments No Sex and Gender Information Value Date Recorded Sex Assigned at Not on file Legal Sex Female 11:31 PM EST Gender Identity Not on file Sexual Orientation Not on file Obstetrics History Para Term AB IAB SAB Ectopic Multiple Livin g Live Births 2 2 2 2 Date Outcome GA Total Labor Labor/2nd/3rd Weight Sex Type Anes PTL [place] A1 A5 Name Clin Term Term Plan of Treatment Health Maintenance Due Date Last Done Comments Zoster Vaccines (1 of 2) 05/22/2005 Cholesterol Screening (Lipid Panel) 02/13/2022 Colorectal Cancer Screening: Colonoscopy 02/13/2022 Depression Screening 02/13/2022 Falls Risk Assessment 02/13/2022 Hepatitis C Screening 02/13/2022 Medicare Annual Wellness Visit 02/13/2022 Osteoporosis Screening (Bone Density Screening) 02/13/2022 Social Influencers of Health Screening 02/13/2022 COVID-19 Vaccine ( season) 2023 06/12/2021, 06/14/2020, 05/17/2020 Influenza Vaccine (Season Ended) 2024 01/11/2022, 12/30/2020, 12/10/2019, Additional history exists Breast Cancer Screening 04/26/2026 04/26/19, 04/18/2023, 04/18/2023, Additional history exists DTaP,Tdap,and Td Vaccines (2 - Td or Tdap) 08/23/2026 08/23/2016 RSV Immunization Adult Patients (1 - 1-dose 75+ series) 05/22/2030 Pneumococcal Vaccine: 50+ Years Completed 03/09/2023, 10/06/2021 HIB Vaccines Aged Out No longer eligi ble based on patient's age to complete this topic HPV Vaccines Aged Out No longer eligi ble based on patient's age to complete this topic Hepatitis A Vaccines Aged Out No long er eligible based on patient's age to complete this topic Hepatitis B Vaccines Aged Out No long er eligible based on patient's age to complete this topic IPV Vaccines Aged Out No longer eligi ble based on patient's age to complete this topic MMR Vaccines Aged Out No longer eligi ble based on patient's age to complete this topic Meningococcal ACWY Vaccine Aged Out N o longer eligible based on patient's age to complete this topic Meningococcal B Vaccine Aged Out No l onger eligible based on patient's age to complete this topic RSV Immunization Patients Under 20 months Aged Out No longer eligible based on patient's age to complete this topic Varicella Vaccines Aged Out No longer eligible based on patient's age to complete this topic Procedures Procedure Name Priority Date/Time Associated Diagnosis Comments MG MAMMO DIGITAL SCREENING W FRANSISCA BILAT Routine 04/26/2024 9:14 AM EST Encounter for screening mammogram for breast cancer from Last 3 Months Results * MG Mammo Digital Screening w Fransisca bilat (04/26/2024 9:14 AM EST) Anatomical Region Laterality Modality Breast Bilateral Mammography 04/26/2024 5:14 PM EST Impressions 04/26/2024 5:28 PM EST No mammographic evidence for malignancy. BI-RADS CATEGORY: 1 - NEGATIVE RECOMMENDATION: Screening bilateral mammogram is recommended in 1 year. Mammo Location: [facility], [address] [place] [address], [id number], . -------- FINAL REPORT -------- Dictated By: Hui Cutler Dictated Date: 04/26/2024 17:14 ET Assigned Physician: Hui Cutler Reviewed and Electronically Signed By: Hui Cutler Signed Date: 04/26/2024 17:28 ET Workstation ID: [id number] Transcribed By: Self Edit Transcribed Date: 04/26/2024 17:14 ET Narrative 04/26/2024 5:28 PM EST CLINICAL: 68 years old, Female, routine annual exam. COMPARISON: Prior mammograms, latest from 04/18/2023. ?? TECHNIQUE: Bilateral MLO and CC views were obtained digitally with 2-D C views and 3-D mammogram (digital breast tomosynthesis). Computer-aided detection was utilized in evaluation of this exam (CAD). FINDINGS: There is no evidence of suspicious mass or architectural distortion. ??No worrisome calcifications are evident. ??There has been no significant change from prior exam(s). ?? BREAST DENSITY: B - There are scattered areas of fibroglandular density. Procedure Note Hui Cutler MD - 04/26/2024 CLINICAL: 68 years old, Female, routine annual exam. COMPARISON: Prior mammograms, latest from 04/18/2023. TECHNIQUE: Bilateral MLO and CC views were obtained digitally with 2-D Cviews and 3-D mammogram (digital breast tomosynthesis). Computer-aideddetection was utilized in evaluation of this exam (CAD). FINDINGS: There is no evidence of suspicious mass or architectural distortion. Noworrisome calcifications are evident. There has been no significantchange from prior exam(s). BREAST DENSITY: B - There are scattered areas of fibroglandular density. IMPRESSION: No mammographic evidence for malignancy. BI-RADS CATEGORY: 1 - NEGATIVE RECOMMENDATION: Screening bilateral mammogram is recommended in 1 year. Mammo Location: [facility], [address] [place] [address], [phone], . -------- FINAL REPORT -------- Dictated By: Hui Cutler Dictated Date: 04/26/2024 17:14 ET Assigned Physician: Hui Cutler Reviewed and Electronically Signed By: Hui Cutler Signed Date: 04/26/2024 17:28 ET Workstation ID: [id number] Transcribed By: Self Edit Transcribed Date: 04/26/2024 17:14 ET Carlyn Ray MD IMG BI PROCEDURES Final Res ult from Last 3 Months Insurance BLUE CROSS - [place] MEDICARE ADVANTAGE Care Teams Certified Cytotechnologist Relationship Specialty Start Date End Date Carlyn Ray MD [address] [place] [address] PCP - General Internal Medicine 03/23/19
== END 2024-06-12 09:56 | disposition home or self-care (01) ==
LOC: HO.HPS 09:25
PROVIDERS: PCP Nurse Practitioner Family; Visit Provider Internal Medicine
DX: G47.33 Obstructive sleep apnea (adult) (pediatric) (principal); E66.01 Morbid (severe) obesity due to excess calories
CPT/HCPCS: 99213

== ENCOUNTER → 2024-06-12 09:25 | Outpatient (BNVA) | payer MEDICARE, SELFPAY | PROVIDERS: PCP Nurse Practitioner Family; Visit Provider Internal Medicine | DX: G47.33 Obstructive sleep apnea (adult) (pediatric) (principal); E66.01 Morbid (severe) obesity due to excess calories; Z68.42 Body mass index [BMI] 45.0-49.9, adult | CPT/HCPCS: 99212 ==

== ENCOUNTER 2024-09-18 08:16 | Outpatient (REF) | payer MEDICARE, SELFPAY ==
--- OUTSIDE RECORDS SUMMARY | 2024-09-18 08:23 | XMS_ITS | Patient Health Record ---
Author Organization [facility] Address [address] [facility] [place] [address] Care Team Providers Care Hose Finisher Name Role Phone Harshad Jose Luis Primary Care Provider Unavailabl e Felipe Lalita Unavailable [phone] Reason For Referral No Information Medications Medication SIG (Take, Route, Frequency, Duration) Notes Start Date End Date Status Wellbutrin 300 MG Orally Once a day; Duration: 30 day(s) Active LORazepam 0.5 MG 1 tablet at bedtime as needed Orally Once a day Active Melatonin 5 MG 1 tablet at bedtime as needed with food Orally Once a day; Duration: 30 day(s) Active Black Cohosh 540 MG as directed Orally Active Levothyroxine Sodium 100 MCG 1 tablet on an empty stomach in the morning Orally Once a day; Duration: 30 day(s) Active Fluticasone Furoate 27.5 MCG/SPRAY 1 puff in each nostril Nasally Once a day; Duration: 30 day(s) Active Fish Oil 1000 MG 1 capsule Orally Onc e a day; Duration: 30 day(s) Active Vitamins/Minerals as directed Orally Active Aspirin 81 MG 1 tablet Orally Once a day; Duration: 30 day(s) Active Vitamin D 2000 UNIT as directed Orally Active Calcium 600-200 MG-UNIT as directed Orally 901 Active Problems Problem Type SNOMED Code ICD Code Onset Dates Problem Status W/U Status Risk Notes Problem Bursitis (71880251) Bursitis (727.3) Active confirmed Problem Achilles bursitis (615840987) Achilles Tendonitis Bursitis (726.71) Active confirmed Problem Calcaneal spur (84935326) Calcaneal spur (726.73) Active confirmed Problem Myositis (13031694) Myositis (729.1) Active confirmed Problem Pain in limb (31081299) Pain in Limb (729.5) Active confirmed Problem Plantar fasciitis (346665707) Plantar Fasciitis (728.71) Active confirmed Plan Of Treatment Pending Test Test Name Order Date X ray : Foot, right 3V 07/17/2012 [id number] TENDON SHEATH/LIGAMENT 0 08/28/2012 [id number] TENDON SHEATH/LIGAMENT 0 10/04/201230542,[id number] TENDON SHEATH/LIGAMENT 0 11/08/2012 Insurance Providers Payer Name Payer Address Payer Phone Subscriber Number Group Number Insured Name Patient Relationship to Insured Coverage Start Date Coverage End Date [employer] [address] [place] [phone] [id number] CHAVO PICKENS Self - patient is the insured Medical (General) History Medical History History ICD Code anxiety depression thyroid disorder measles chicken pox Surgical History Surgery Date(Month/Year) tubal ligation 1995 oral surgery 2004 bunionectomy 2007
--- OUTSIDE RECORDS SUMMARY | 2024-09-18 08:23 | XMS_ITS | Clinical Summary ---
Author Organization [address] Address [address] [place] [id number] Phone Care Team Providers Care Corrections Cadet Name Role Phone Carlyn Ray MD Primary Care Provider Surgical History Surgery Date Site/Laterality Comments TUBAL [...] season) 2023 06/12/2021, 06/14/2020, 05/17/2020 Influenza Vaccine (#1) 2024 , 12/30/2020, 12/10/2019, Additional history exists Breast Cancer [...] for breast cancer from Last 3 Months or Most Recently Relevant to Health Maintenance Results * MG Mammo Digital Screening w Fransisca bilat (04/26/2024 9:14 AM EST) Anatomical Region Laterality Modality Breast Bilateral Mammography 04/26/2024 5:14 PM EST Impressions 04/26/2024 5:28 PM EST No mammographic evidence for malignancy. BI-RADS CATEGORY: 1 - NEGATIVE RECOMMENDATION: Screening bilateral mammogram is recommended in 1 year. Mammo Location: [facility], [address] [place] [address], [phone], . -------- FINAL REPORT -------- Dictated By: Hui Cutler Dictated Date: 04/26/2024 17:14 ET Assigned Physician: Hui Cutler Reviewed and Electronically Signed By: Hui Cutler Signed Date: 04/26/2024 17:28 ET Workstation ID: [id number] Transcribed By: Self Edit Transcribed Date: 04/26/2024 [...] evidence of suspicious mass or architectural distortion. No worrisome calcifications are evident. There has been no significant change from prior exam(s). BREAST DENSITY: B - [...] is recommended in 1 year. Mammo Location: [facility], [address] [place] [address], [phone], . -------- FINAL REPORT -------- Dictated By: Hui Cutler Dictated Date: 04/26/2024 17:14 ET Assigned Physician: Hui Cutler Reviewed and Electronically Signed By: Hui Cutler Signed Date: 04/26/2024 17:28 ET Workstation ID: [id number] Transcribed By: Self Edit Transcribed Date: 04/26/2024 17:14 ET us Carlyn Ray MD IMG BI PROCEDURES Final Res ult from Last 3 Months or Most Recently Relevant to Health Maintenance Insurance [place] Care Teams Corrections Cadet Relationship Specialty Start Date End Date Carlyn Ray MD [address] [place] [address] PCP - General Internal Medicine 03/23/19
[2024-09-18 10:13] LABS: MANUAL DIFF FLAG NO
[2024-09-18 10:20] LABS: Appearance Urine Clear; Glucose Urine UA Negative (Negative); PH 5.5 (5.0-9.0); Specific Gravity - Urine 1.020 (1.005-1.025); UMIC TRIGGER UACC YES
[2024-09-18 10:39] LABS: Hematocrit 40.3 % (37.0-47.0); Hemoglobin 13.2 g/dl (12.0-16.0); Imm Gran Abs Auto 0.03 X10*3/uL (0.00-0.03); Imm Gran Pct Auto 0.5 % (0.0-0.4); Lymphocytes Absolute Auto 2.0 X10*3/uL (1.2-4.9); Mean Corpuscular HGB Conc 32.8 g/dl (31.0-35.0); Mean Corpuscular Hemoglobin 31.9 pg (27.0-33.0); Mean Corpuscular Volume 97.3 fL (80.0-98.0); NRBC Abs Auto 0.000 X10*3/uL (0.0-0.012); NRBC Pct Auto 0.0 /100WBC (0.0-0.2); Platelet Count 294 X10*3/uL (160-400); Red Blood Count 4.14 X10*6/uL (4.20-5.50); White Blood Count 6.5 X10*3/uL (4.8-10.8)
[2024-09-18 10:50] LABS: Alanine Aminotransferase 21 U/L (0-31); Albumin Level 4.4 g/dL (3.5-5.0); Alkaline Phosphatase 95 U/L (39-117); Anion Gap 14 (12-20); Aspartate Amino Transferase 25 U/L (5-31); Blood Urea Nitrogen 13 mg/dL (9-16); Calcium 9.4 mg/dL (8.4-10.2); Carbon Dioxide 28 mmol/L (22-29); Chloride 105 mmol/L (96-108); Cholesterol 176 mg/dL (<200); Estimated Glomerular Filt Rate > 60; HDL Cholesterol 61 mg/dL (>40); Potassium 4.6 mmol/L (3.3-5.1); Sodium 142 mmol/L (135-145); Total Protein 7.1 g/dL (6.5-8.0); Triglycerides 119 mg/dL (<150)
== END 2024-09-18 08:17 | disposition home or self-care (01) ==
LOC: HO.HMGCLDS 08:16
PROVIDERS: PCP Nurse Practitioner Family; Visit Provider Nurse Practitioner Family
DX: Z00.00 Encounter for general adult medical examination without abnormal findings (principal); E55.9 Vitamin D deficiency, unspecified
CPT/HCPCS: 36415; 80053; 80061; 81001; 82306; 84443; 85025

== ENCOUNTER 2024-09-25 09:31 | Outpatient (AMB) | payer MEDICARE, SELFPAY ==
[2024-09-25 09:45] VITALS: BMI 44.7
--- NOTE | 2024-09-25 09:45 | A.OFFVIS_ITS ---
VS Expanded 09/25/24 09:45 Height 5 ft 3 in Weight 252 lb 6.868 oz BMI 44.7 Intake Visit Reasons: Obesity Allergies white faced hornets Allergy (Unknown, Uncoded 06/12/24 10:07) anaphylaxis Nutrition Presentation Details: Pt presents for MNT for obesity Pt reports having started zepbound Pt reports having bought a treadmill , working on reaching 30 minutes 3-4 x week continuing to work on having a variety of foods, low in fat, choosing protein foods coffee with creamer eggs/sausage fruits protein shake or a salad with chicken chicken, potato, green beans water/lemon Pt denies constipation fluid:water, low sugar beverages, tea BS Monitoring Most Recent Diabetes Results: Cholesterol, (<200) 176 mg/dL 09/18/24 HDL Cholesterol, (>40) 61 mg/dL 09/18/24 Triglycerides, (<150) 119 mg/dL 09/18/24 Creatinine, (0.5-1.4) 0.65 mg/dL 09/18/24 BUN, (9-16) 13 mg/dL 09/18/24 Sodium, (135-145) 142 mmol/L 09/18/24 Potassium, (3.3-5.1) 4.6 mmol/L 09/18/24 Chloride, (96-108) 105 mmol/L 09/18/24 Carbon Dioxide, (22-29) 28 mmol/L 09/18/24 Calcium, (8.4-10.2) 9.4 mg/dL 09/18/24 AST, (5-31) 25 U/L 09/18/24 ALT, (0-31) 21 U/L 09/18/24 Total Protein, (6.5-8.0) 7.1 g/dL 09/18/24 Albumin, (3.5-5.0) 4.4 g/dL 09/18/24 [facility] Medical History REAL on CPAP Morbid obesity Sleep apnea COVID-19 Surgical History Hx of colonoscopy Social History Housing: Condominium Patient Tobacco Use Status: Former Tobacco user e-Cigarette/Vaping Use: Never Used Second Hand Smoke Exposure: No service: No 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al status: employed and retired 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al exposures/hazards: Yes Cognitive needs: No Hearing needs: No Vision needs: No Assessment & Plan Assessment & Plan (1) Obesity: Code(s): E66.9 - Obesity, unspecified Category: Medical Plan: Wt: 121 Kg ( 03/2023 ) 119 kg (01/28), 117 kg (05/29), 114 kg(09/28) Est kcal needs as per MSJ: 9229-1764 (40% carb, 30% protein/fat) Est fluid needs as per 25-30 ml/d: 3500 Est prot per day as per 1 g/kg bw: 115 Recommend fiber intake : 8-10 g per day and gradually increase to 25-28 g per day for women and 35-38 g for men or as tolerated Recommend sodium intake per day : less than 2000 mg Educated patient on: ( R = reviewed V = verbalizes understanding N/R = needs review N/A = not applicable * Food sources of carbohydrate, adequate serving sizes and its role in various health conditions: R * Differences between complex carbohydrates a simple carbohydrates, role of fiber in diet: R * Lean protein sources of foods: R * Differences between types of fats and role in diet (mono on saturated fat fatty acids, saturated fatty acids, trans fats): R * Food sources of sodium in salt and healthy modifications for heart health in kidney health: R * Vitamins and minerals: R * Healthy plate method concept: R * Physical activity: Benefits a precaution: R * Relaxation:R Patient Instructions: Continue working on choosing lean protein , aim at 70-90 g protein with a combination of fiber rich foods keep hydrated by having water with meals/snacks keep physically active 30-40 minute walk 4 times week Coding Level of Care Code Nutr Indiv Subseq (26891) Diagnoses Obesity E66.9 Time Spent (min) 20
--- OUTSIDE RECORDS SUMMARY | 2024-09-25 10:09 | XMS_ITS | Clinical Summary ---
Author Organization [address] Address [address] [place] [phone] Phone Care Team Providers Care White Sugar Syrup Operator Name Role Phone Carlyn Ray MD Primary [...] Panel) 02/13/2022 Colorectal Cancer Screening: Colonoscopy 02/13/2022 Falls Risk Assessment 02/13/2022 Hepatitis C Screening 02/13/2022 Medicare Annual Wellness Visit 02/13/2022 Osteoporosis Screening (Bone Density Screening) 02/13/2022 Social Influencers of Health Screening 02/13/2022 COVID-19 Vaccine ( season) 2023 06/12/2021, 06/14/2020, 05/17/2020 Depression Screening 03/07/2024 Influenza Vaccine (#1) 2024 , 12/30/2020, 12/10/2019, [...] is recommended in 1 year. Mammo Location: [facility], [address] [place] [address], [address], . -------- FINAL REPORT -------- Dictated By: Hui Cutler Dictated Date: 04/26/2024 17:14 ET Assigned Physician: Hui Cutler Reviewed and Electronically Signed By: Hui Cutler Signed Date: 04/26/2024 17:28 ET Workstation ID: [id number] Transcribed By: Self Edit Transcribed Date: 04/26/2024 [...] is recommended in 1 year. Mammo Location: [facility], [address] [place] [address], [address], . -------- FINAL REPORT -------- Dictated By: Hui Cutler Dictated Date: 04/26/2024 17:14 ET Assigned Physician: Hui Cutler Reviewed and Electronically Signed By: Hui Cutler Signed Date: 04/26/2024 17:28 ET Workstation ID: [id number] Transcribed By: Self Edit Transcribed Date: 04/26/2024 17:14 ET us Carlyn Ray MD IMG BI PROCEDURES Final Res ult from Last 3 Months or Most Recently Relevant to Health Maintenance Insurance BLUE CROSS - [place] MEDICARE ADVANTAGE Care Teams White Sugar Syrup Operator Relationship Specialty Start Date End Date Carlyn Ray MD [address] [place] [address] PCP - General Internal Medicine 03/23/19
--- OUTSIDE RECORDS SUMMARY | 2024-09-25 10:09 | XMS_ITS | Patient Health Record ---
Author Organization [facility] Address [address] [facility] [place] [address] Care Team Providers Care Research Biostatistician Name Role Phone Harshad Jose Luis Primary Care Provider Unavailabl e Felipe Lalita Unavailable [phone] Reason For Referral No Information Medications Medication [...] Status W/U Status Risk Notes Problem Bursitis (89351832) Bursitis (727.3) Active confirmed Problem Achilles bursitis (973639293) Achilles Tendonitis Bursitis (726.71) Active confirmed Problem Calcaneal spur (14780076) Calcaneal spur (726.73) Active confirmed Problem Myositis (34769918) Myositis (729.1) Active confirmed Problem Pain in limb (98439052) Pain in Limb (729.5) Active confirmed Problem Plantar fasciitis (838794418) Plantar Fasciitis (728.71) Active confirmed Plan Of Treatment Pending Test Test Name Order Date X ray : Foot, right 3V 07/17/2012 [id number] TENDON SHEATH/LIGAMENT 0 08/28/2012 [id number] TENDON SHEATH/LIGAMENT 0 10/04/201225747,[id number] TENDON SHEATH/LIGAMENT 0 11/08/2012 Insurance Providers Payer Name Payer Address Payer Phone Subscriber Number Group Number Insured Name Patient Relationship to Insured Coverage Start Date Coverage End Date Aetna [address] [place] [address] [id number] [phone] CHAVO PICKENS Self - patient is the insured Medical (General) History Medical History History ICD Code anxiety depression thyroid disorder measles chicken pox Surgical History Surgery Date(Month/Year) tubal ligation 1995 oral surgery 2004 bunionectomy 2007
== END 2024-09-25 10:17 | disposition home or self-care (01) ==
LOC: HO.ENCR 09:32
PROVIDERS: PCP Nurse Practitioner Family; Visit Provider Dietitian, Registered
DX: E66.9 Obesity, unspecified (principal)

== ENCOUNTER → 2024-09-25 09:31 | Outpatient (BNVA) | payer MEDICARE, SELFPAY | PROVIDERS: PCP Nurse Practitioner Family; Visit Provider Dietitian, Registered | DX: Z71.3 Dietary counseling and surveillance (principal); E66.9 Obesity, unspecified | CPT/HCPCS: 97803 ==

== ENCOUNTER 2024-10-10 09:41 | Outpatient (AMB) | payer MEDICARE, SELFPAY ==
--- NOTE | 2024-10-10 09:48 | MHC.PC.OV ---
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: No Accompanied by: Self / Same As Patient Allergies white faced hornets Allergy (Unknown, Uncoded 10/10/24 10:18) anaphylaxis Medication List - Last Reconciled 10/10/24 by NILE CoreaP- albuterol sulfate 90 mcg/actuation (Ventolin HFA) 2 puffs inhalation Q6H PRN atorvastatin 40 mg PO BEDTIME biotin 10 mg PO DAILY calcium carbonate-vitamin D3 600 mg-12.5 mcg (500 unit) (Calcium with Vit D3) 1 cap PO BID 90 days levothyroxine 88 mcg PO DAILY lorazepam 0.5 mg PO BEDTIME PRN tirzepatide (weight loss) 5 mg (0.5 mL) subcut QWEEK Tobacco use date assessed: 10/10/24 Fall risk assessment: No Falls in past year Last assessed Fall Risk: 10/10/24 Dental Screening Dental Screen Date: 10/10/24 Did you have a dental visit in the last 12 months?: No Did you have a dental problem in the last 6 months where you did not have access to dental care?: No Was dental information given to patient?: Patient has dentist HPI 6 month follow up HPI Details Chief Complaint The patient presents for a six-month follow-up visit. History of Present Illness The patient is a 69-year-old female presenting for a six-month follow-up visit. Recent laboratory results indicate stable blood counts and liver enzymes, with cholesterol at 176 mg/dL and LDL at 92 mg/dL. Vitamin D levels have improved, and thyroid function tests are normal. The patient has a history of moderate diastolic dysfunction and mild aortic valve stenosis. An echocardiogram from last year showed moderate septal asymmetry and no significant changes compared to 2021. She is currently on 40 mg of atorvastatin and has started Zepbound for weight loss, reporting a 1-pound loss and good tolerance of the medication. The patient is morbidly obese, with a systolic murmur noted during examination. Her lungs are clear, and there is no peripheral edema observed. Social History Health Maintenance - Cardiovascular monitoring with echocardiogram planned. denies any PND, orthopnea, cp, sob, n/v, fevers or chills, blurred vision or dizziness. Review of Systems Physical Exam General: Cooperative, healthy appearing, comfortable, no acute distress and well developed, morbidly obese Orientation: Patient oriented x3 Limitations: No limitations Head: Normal to inspection Ears: Hearing grossly normal bilaterally Nose: Normal external nose present Face and sinus: Normal facial exam Eyes: Appearance normal, both eyes and all related structures Neck: Normal visual inspection and Yes full ROM Respiratory: Normal respiratory effort and able to speak in complete sentences. Clear to auscultation bilaterally Cardiovascular: Regular rate and rhythm. Normal S1 and S2, systolic murmur clearly present GI: Normal to inspection. Soft to palpation and nontender Skin: No rashes or lesions noted Neuro: Patient oriented x3 Extremities: Normal to inspection, no edema noted Results - Labs: Blood counts stable, liver enzymes stable, cholesterol 176 mg/dL, LDL 92 mg/dL, Vitamin D improved, thyroid function normal - Tests: Urinalysis showed no apparent growth - Diagnostics: Echocardiogram from last year showed moderate septal asymmetry, moderate diastolic dysfunction, mild aortic valve stenosis Plan The plan includes repeating the echocardiogram to monitor. Continuation of atorvastatin at 40 mg is advised to manage cholesterol levels. The patient will continue Zepbound for weight loss, given the positive response and tolerance. Discussion Notes I discussed with the patient the importance of monitoring her cardiovascular health through regular echocardiograms. We reviewed her current medications, including atorvastatin for cholesterol management and Zepbound for weight loss, noting her positive response to the latter. Patient Instructions - Continue taking atorvastatin 40 mg daily as prescribed. - Keep using Zepbound for weight loss and monitor your progress. - Schedule and attend the upcoming echocardiogram to monitor heart health. [facility] Medical History (Updated 10/10/24 @ 10:21 by SHANAE Corea) REAL on CPAP Morbid obesity Sleep apnea COVID-19 Surgical History Hx of colonoscopy Social History Housing: Condominium Patient Tobacco Use Status: Former Tobacco user e-Cigarette/Vaping Use: Never Used Second Hand Smoke Exposure: No service: No 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al status: employed and retired 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: [employer] 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al exposures/hazards: Yes Cognitive needs: No Hearing needs: No Vision needs: No Questionnaire PHQ-9 Over the last 2 weeks, how often have you been bothered by any of the following problems? 2. Feeling down, depressed, or hopeless: not at all 3. Trouble falling or staying asleep, or sleeping too much: not at all 4. Feeling tired or having little energy: not at all 5. Poor appetite or overeating: not at all 6. Feeling bad about yourself - or that you are a failure or have let yourself or your family down: not at all 7. Trouble concentrating on things, such as reading the newspaper or watching television: not at all 8. Moving or speaking so slowly that other people could have noticed. Or the opposite - being so fidgety or restless that you have been moving around a lot more than usual: not at all 9. Thoughts that you would be better off or of hurting yourself in some way: not at all Depression Screening Interpretation: Negative Depression Screening Done: Yes 83615 - PHQ-9 Billing: Yes Source: Developed by Drs. J Luis Kern, Fara Harmon, Lamont Lerma and colleagues, with an educational gwen from [email or web address]. Thrive Questionnaire Date Thrive assessed: 03/15/24 I am a: Patient What is your living situation today?: I have a steady place to live Within the past 12 months, did the food you bought not last and you didn't have the money to get more?: Never true Within the past 12 months, did you worry whether your food would run out before you got money to buy more?: Never true Do you have trouble paying for medicines?: No Do you have trouble getting transportation to medical appointments?: No Do you have trouble paying your heating and electricity bill?: No Do you have trouble taking care of your child, family member or friend?: No Do you have trouble with day-to-day activities such as bathing, preparing meals, shopping, managing finances, etc.?: No Are you currently unemployed and looking for a job?: No Are you interested in more education?: No Please select the resources that you would like help with: None Currently or been in a relationship where the following occur: No concerns reported THRIVE Score: 0 QUAN-7 AMB Questionnaire QUAN-7 Date QUAN - 7 assessed: 10/10/24 Feeling nervous, anxious, or on edge: 0 = Not at all Not being able to stop or control worryin = Not at all Worrying too much about different things: 0 = Not at all Trouble relaxin = Not at all Being so restless that it is hard to sit still: 0 = Not at all Becoming easily annoyed or irritable: 0 = Not at all Feeling afraid as if something awful might happen: 0 = Not at all Total QUAN-7 score (0-4 normal; 5-9 mild; 10-14 moderate; 15-21 severe): 0 Source: Developed by Drs. J Luis Kern, Fara Harmon, Lamont Lerma and colleagues, with an educational gwen from [email or web address]. QUAN-7 Assessment Billing QUAN-7 Assessment Tool: QUAN-7 Assessment 37922 Physical exam (Primary Care) Vital Signs: Last Vital Signs Temp 98.2 F 10/10/24 09:49 Pulse 72 10/10/24 09:49 Resp 16 10/10/24 09:49 BP 128/72 10/10/24 09:49 Pulse Ox 98 10/10/24 09:49 Oxygen Delivery Method Room Air 10/10/24 09:49 BMI result Body Mass Index 44.6 Tobacco/Smoking Status: Tobacco use Status Tobacco use date assessed 10/10/24 10/10/24 09:55 Patient Tobacco Use Status Former Tobacco user 10/10/24 09:55 e-Cigarette/Vaping Use Never Used 10/10/24 09:55 Depression Screening Interpretation: Negative Thrive Assessment: Date of Thrive Assessment Date Thrive assessed 03/15/24 10/10/24 09:55 Currently or been in a relationship where the following occur: No concerns reported Coding Level of Care Code Est Pt Level 4 (68329) Diagnoses Systolic murmur R01.1 Aortic stenosis I35.0 Dyslipidemia E78.5 Morbid obesity E66.01 Additional Codes QUAN-7 Assessment Billing - QUAN-7 Assessment Tool: QUAN-7 Assessment 08124 ([id number]) PHQ-9 - 41225 - PHQ-9 Billing: Yes ([id number]) Assessment & Plan Assessment & Plan (1) Systolic murmur: Code(s): R01.1 - Cardiac murmur, unspecified Category: Medical (2) Aortic stenosis: Code(s): I35.0 - Nonrheumatic aortic (valve) stenosis Category: Medical (3) Dyslipidemia: Code(s): E78.5 - Hyperlipidemia, unspecified Category: Medical (4) Morbid obesity: Code(s): E66.01 - Morbid (severe) obesity due to excess calories Category: Medical Plan . Orders: Orders CA echo transthoracic complete Today I35.0 - Nonrheumatic aortic (valve) stenosis, R01.1 - Cardiac murmur, unspecified Medications: Refilled tirzepatide (weight loss) for 4 weeks, for morbid obesity and sleep apnea 5 mg (0.5 mL) subcut QWEEK 2 mL 0RF
[2024-10-10 09:49] VITALS: BP 128/72; PULSE 72; RESP 16; TEMP 36.8; O2SAT 98; BMI 44.6
--- OUTSIDE RECORDS SUMMARY | 2024-10-10 10:05 | XMS_ITS | Patient Health Record ---
Author Organization [facility] Address [address] [facility] [place] [address] Care Team Providers Care Air Sealing Technician Name Role Phone Harshad Jose Luis Primary Care Provider Unavailabl e Felipe Lalita Unavailable [phone] Reason For Referral No Information Medications Medication [...] Status W/U Status Risk Notes Problem Bursitis (54959192) Bursitis (727.3) Active confirmed Problem Achilles bursitis (850006865) Achilles Tendonitis Bursitis (726.71) Active confirmed Problem Calcaneal spur (76132506) Calcaneal spur (726.73) Active confirmed Problem Myositis (65089227) Myositis (729.1) Active confirmed Problem Pain in limb (86776645) Pain in Limb (729.5) Active confirmed Problem Plantar fasciitis (474142414) Plantar Fasciitis (728.71) Active confirmed Plan Of Treatment Pending Test Test Name Order Date X ray : Foot, right 3V 07/17/2012 [id number] TENDON SHEATH/LIGAMENT 0 08/28/2012 45847,[id number] TENDON SHEATH/LIGAMENT 0 10/04/201214462,[id number] TENDON SHEATH/LIGAMENT 0 11/08/2012 Insurance Providers Payer Name Payer Address Payer Phone Subscriber Number Group Number Insured Name Patient Relationship to Insured Coverage Start Date Coverage End Date Aetna [address] [place] [address] [id number] [phone] CHAVO PICKENS Self - patient is the insured Medical (General) History Medical History History ICD Code anxiety depression thyroid disorder measles chicken pox Surgical History Surgery Date(Month/Year) tubal ligation 1995 oral surgery 2004 bunionectomy 2007
--- OUTSIDE RECORDS SUMMARY | 2024-10-10 10:05 | XMS_ITS | Clinical Summary ---
Author Organization [address] Address [address] [place] [phone] Phone Care Team Providers Care Bar Back Name Role Phone Carlyn Ray MD Primary [...] is recommended in 1 year. Mammo Location: [facility], [address] [place] [address], [address], . -------- FINAL REPORT -------- Dictated By: Hui Cutler Dictated Date: 04/26/2024 17:14 ET Assigned Physician: Hui Cutler Reviewed and Electronically Signed By: Hui Cutler Signed Date: 04/26/2024 17:28 ET Workstation ID: [id number] Transcribed By: Self Edit Transcribed Date: 04/26/2024 [...] is recommended in 1 year. Mammo Location: [facility], [address] [place] [address], [address], . -------- FINAL REPORT -------- Dictated By: Hui Cutler Dictated Date: 04/26/2024 17:14 ET Assigned Physician: Hui Cutler Reviewed and Electronically Signed By: Hui Cutler Signed Date: 04/26/2024 17:28 ET Workstation ID: [id number] Transcribed By: Self Edit Transcribed Date: 04/26/2024 17:14 ET us Carlyn Ray MD IMG BI PROCEDURES Final Res ult from Last 3 Months or Most Recently Relevant to Health Maintenance Insurance BLUE CROSS - [place] ADVANTAGE Care Teams Bar Back Relationship Specialty Start Date End Date Carlyn Ray MD [address] [place] [address] PCP - General Internal Medicine 03/23/19
== END 2024-10-10 11:31 | disposition home or self-care (01) ==
LOC: HO.HMCC 09:42
PROVIDERS: PCP Nurse Practitioner Family; Visit Provider Nurse Practitioner Family
DX: R01.1 Cardiac murmur, unspecified (principal); I35.0 Nonrheumatic aortic (valve) stenosis; E66.01 Morbid (severe) obesity due to excess calories; Z68.41 Body mass index [BMI] 40.0-44.9, adult; E78.5 Hyperlipidemia, unspecified

== ENCOUNTER → 2024-10-10 09:41 | Outpatient (BNVA) | payer MEDICARE, SELFPAY | PROVIDERS: PCP Nurse Practitioner Family; Visit Provider Nurse Practitioner Family | DX: I35.0 Nonrheumatic aortic (valve) stenosis (principal); E66.01 Morbid (severe) obesity due to excess calories; R01.1 Cardiac murmur, unspecified; E78.5 Hyperlipidemia, unspecified; Z68.41 Body mass index [BMI] 40.0-44.9, adult | CPT/HCPCS: 96127; 99212 ==

== ENCOUNTER → 2024-11-19 10:40 | Outpatient (REF) | payer MEDICARE, SELFPAY ==
--- NOTE | 2024-11-19 10:44 | CA_ITS ---
Transthoracic Echocardiogram Patient (Last, First, Middle): Mary Carmen [place], Gender: F Date of : 1955 Age: 69 Procedure Date: 11/19/2024 Procedure Type: Transthoracic Echocardiogram Location: OP Height: 157. cm Weight: 109.77 kg BSA: 2.07 m2 Heart Rate: 60 bpm BP: 140 / 75 mmHg Composition Siding Worker: ERIN Gandhi MD: Addi Reynoso [facility] Symptoms: I35.0 - Nonrheumatic aortic (valve) stenosis Study Quality: Fair ECG Rhythm: Sinus Conclusions: - The left ventricular systolic function is normal. The visually estimated ejection fraction is between 65-70%. - There is moderate mitral annular calcification. - Possible mild aortic stenosis. - There is mild dilatation of the ascending aorta measuring 4.10 cm. Findings Left Ventricle Normal left ventricular cavity size. There is moderately increased left ventricular wall thickness. The left ventricular systolic function is normal. The visually estimated ejection fraction is between 65-70%. There is no evidence of regional wall motion abnormalities. Diastolic function is normal for age. Right Ventricle Normal right ventricular cavity size. There is low normal right ventricular systolic function. Atria The left atrium is mildly dilated. The right atrium is normal in size. Aortic Valve There is a normal trileaflet aortic valve. There is mild calcification of the aortic valve. There is no aortic valve regurgitation. Possible mild aortic stenosis. Mitral Valve There is moderate mitral annular calcification. There is no mitral valve regurgitation. There is no mitral valve stenosis. Pulmonic Valve The pulmonic valve is likely normal. Tricuspid Valve There is trace tricuspid valve regurgitation. There is no evidence of pulmonary hypertension. Great Vessels The aortic arch is normal in size. There is mild dilatation of the ascending aorta measuring 4.10 cm. Venous The inferior vena cava is normal in size and collapses greater than 50% with inspiration. Pericardium/Pleural There is no evidence of pericardial effusion. Prior Study Comparison Changes noted compared to prior study dated: 10/25/2023. See comment on ascending aorta. Measurements 2D Linear Measurements IVSd: 1.44 0.6-0.9/0.6-1.0 cm LVIDd: 3.78 3.9-5.3/4.2-5.9 cm LVIDd Index: 1.83 2.4-3.2/2.2-3.1 cm/m2 LVIDs: 2.31 2.0-3.6 cm LVPWd: 1.49 0.7-1.1 cm LA Diam: 3.40 2.7-3.8/3.0-4.0 cm LAIDs Index: 1.64 1.5-2.3 cm/m2 LV Mass: 258.03 67-162/88-224 g LV Mass Index: 124.65 43-95/49-115 g/m2 LVOT Diam: 2.10 3.0+(-)1.3 cm 2D Systolic Function EF 4C: 65.20 >55% EF 2C: 71.30 >55% EF BiP: 68.90 >55% Mitral Valve MV VTI: 0.49 MV Pk Dk: 1.53 MV Mn Dk: 1.04 MV Pk Grad: 9.00 MV Mn Grad: 5.00 MV Pk E: 1.36 MV PK A: 1.25 MV Decel Time: 261.00 E/A: 1.10 E'Lateral: 8.05 E'Medial: 6.85 E/E' Med: 19.90 E/E' Lat: 16.90 PHT: 77.00 MVA PHT: 2.86 MVA Continuity: 2.86 Decel [place]: 5.20 Aortic Valve AoV Pk Dk: 2.32 AoV Mn Dk: 1.48 AoV VTI: 0.55 AoV Pk Grad: 22.00 Aov Mn Grad: 10.00 SAVI Cont.VTI: 2.57 LVOT LVOT Pk Dk: 1.67 LVOT Mn Dk: 1.18 LVOT VTI: 0.41 LVOT Pk Grad: 11.00 LVOT Mn Grad: 6.00 LVOT Diam: 2.10 LVOT Area: 3.46 Diastolic Function MV Pk E: 1.36 MV Pk A: 1.25 E/A: 1.10 E'Medial: 6.85 E/E' Med: 19.90 E' Laterial: 8.05 E/E' Lat: 16.90 Right Ventricle TAPSE (mm): 25.80 TVS' Dk: 10.10 Tricuspid Valve TR Pk Dk: 1.71 TR Pk Grad: 12.00 RA Press: 3.00 RVSP: 15.00 Great Vessels Aorta Sinus of Valsalva: 3.30 2.0-3.5 cm Ao Asc: 4.10 2.1-3.4 cm Ao Arch: 2.90 Pulmonary Veins Pulm Vein S/D 1.40 Pulmonary Valve PV Pk Dk: 0.92 Peak PV Grad: 3.00 Updated in Other Vendor System with Status of Final Morgan Gilliam MD electronically signed on 11/19/2024 4:20:08 PM with status of Final
--- OUTSIDE RECORDS SUMMARY | 2024-11-19 13:52 | XMS_ITS | Clinical Summary ---
Author Organization [address] Address [address] [place] [address] Phone Care Team Providers Care Electric Locomotive Firer/Fireman Name Role Phone Carlyn Ray MD Primary [...] 02/13/2022 Social Influencers of Health Screening 02/13/2022 Depression Screening 03/07/2024 COVID-19 Vaccine ( season) 2024 06/12/2021, 06/14/2020, 05/17/2020 Influenza Vaccine (#1) 2024 [...] is recommended in 1 year. Mammo Location: [facility], [address] [place] [address], [address], . -------- FINAL REPORT -------- Dictated By: Hui Cutler Dictated Date: 04/26/2024 17:14 ET Assigned Physician: Hui Cutler Reviewed and Electronically Signed By: Hui Cutler Signed Date: 04/26/2024 17:28 ET Workstation ID: [id number] Transcribed By: Self Edit Transcribed Date: 04/26/2024 [...] is recommended in 1 year. Mammo Location: [facility], [address] [place] [address], [address], . -------- FINAL REPORT -------- Dictated By: Hui Cutler Dictated Date: 04/26/2024 17:14 ET Assigned Physician: Hui Cutler Reviewed and Electronically Signed By: Hui Cutler Signed Date: 04/26/2024 17:28 ET Workstation ID: [id number] Transcribed By: Self Edit Transcribed Date: 04/26/2024 17:14 ET us Carlyn Ray MD IMG BI PROCEDURES Final Res ult from Last 3 Months or Most Recently Relevant to Health Maintenance Insurance [employer]UE [employer]OSS [place] Care Teams Electric Locomotive Firer/Fireman Relationship Specialty Start Date End Date Carlyn Ray MD [address] [place] [address] PCP - General Internal Medicine 03/23/19
--- OUTSIDE RECORDS SUMMARY | 2024-11-19 13:52 | XMS_ITS | Patient Health Record ---
Author Organization [facility] Address [address] [facility] [place] [address] Care Team Providers Care Renal Technician Name Role Phone Harshad Jose Luis Primary Care Provider Unavailabl e Felipe Lalita Unavailable [phone] Reason For Referral No Information Medications Medication [...] Status W/U Status Risk Notes Problem Bursitis (46070962) Bursitis (727.3) Active confirmed Problem Achilles bursitis (584664390) Achilles Tendonitis Bursitis (726.71) Active confirmed Problem Calcaneal spur (64467334) Calcaneal spur (726.73) Active confirmed Problem Myositis (11301509) Myositis (729.1) Active confirmed Problem Pain in limb (67272069) Pain in Limb (729.5) Active confirmed Problem Plantar fasciitis (117693770) Plantar Fasciitis (728.71) Active confirmed Plan Of Treatment Pending Test Test Name Order Date X ray : Foot, right 3V 07/17/2012 [id number] TENDON SHEATH/LIGAMENT 0 08/28/2012 56489,[id number] TENDON SHEATH/LIGAMENT 0 10/04/201234019,[id number] TENDON SHEATH/LIGAMENT 0 11/08/2012 Insurance Providers Payer Name Payer Address Payer Phone Subscriber Number Group Number Insured Name Patient Relationship to Insured Coverage Start Date Coverage End Date Aet[employer] [address] [place] [address] [id number] CHAVO PICKENS Self - patient is the insured Medical (General) History Medical History History ICD Code anxiety depression thyroid disorder measles chicken pox Surgical History Surgery Date(Month/Year) tubal ligation 1995 oral surgery 2004 bunionectomy 2007
== END ==
LOC: HO.CARD 10:40
PROVIDERS: PCP Nurse Practitioner Family; Visit Provider Nurse Practitioner Family
DX: I35.0 Nonrheumatic aortic (valve) stenosis (principal); R01.1 Cardiac murmur, unspecified
CPT/HCPCS: 93306

== ENCOUNTER → 2024-11-19 10:44 | Outpatient (BNV) | payer MEDICARE, SELFPAY | PROVIDERS: PCP Nurse Practitioner Family; Visit Provider Internal Medicine | DX: I34.81 Nonrheumatic mitral (valve) annulus calcification (principal); I35.0 Nonrheumatic aortic (valve) stenosis | CPT/HCPCS: 93306 ==

== ENCOUNTER 2024-11-21 10:20 | Outpatient (AMB) | payer MEDICARE, SELFPAY ==
[2024-11-21 10:42] VITALS: BMI 43.0
--- NOTE | 2024-11-21 10:42 | MHC.AMNUTRGE ---
VS Expanded 11/21/24 10:42 Height 5 ft 3 in Weight 242 lb 8.136 oz BMI 43.0 Intake Visit Reasons: obesity Allergies white faced hornets Allergy (Unknown, Uncoded 10/10/24 10:18) anaphylaxis Nutrition Presentation Details: Pt presents for MNT f/u for obesity Pt reports feeling well and motivated with weight loss Pt is on 7.5 mg zepbound for weight loss. reports no GI side effects Pt reports working on meal prep, due to long travels Pt reports carrying foods portioned out in a cooler 3-4 oz of chicken or low sodium deli meat/cheese, veggies on whole grain bread, reports sometimes having 1/2 sand and a fruit reports choosing fruits limiting intake of pastries/cookies and the like has 1-2 protein shakes per day working on getting 90 g of protein per day (meats/protein shake) plus vegetables, legumes/whole grains, fairlife milk using treadmill at home - walking 3 x/wk (30 minutes /) Taking a daily multivitamin takes a probiotic daily fluids: 64 oz/d (water/water with no sugar added flavoring BS Monitoring Most Recent Diabetes Results: Cholesterol, (<200) 176 mg/dL 09/18/24 HDL Cholesterol, (>40) 61 mg/dL 09/18/24 Triglycerides, (<150) 119 mg/dL 09/18/24 Creatinine, (0.5-1.4) 0.65 mg/dL 09/18/24 BUN, (9-16) 13 mg/dL 09/18/24 Sodium, (135-145) 142 mmol/L 09/18/24 Potassium, (3.3-5.1) 4.6 mmol/L 09/18/24 Chloride, (96-108) 105 mmol/L 09/18/24 Carbon Dioxide, (22-29) 28 mmol/L 09/18/24 Calcium, (8.4-10.2) 9.4 mg/dL 09/18/24 AST, (5-31) 25 U/L 09/18/24 ALT, (0-31) 21 U/L 09/18/24 Total Protein, (6.5-8.0) 7.1 g/dL 09/18/24 Albumin, (3.5-5.0) 4.4 g/dL 09/18/24 [facility] Medical History (Updated 10/10/24 @ 10:21 by Addi Reynoso [facility]) REAL on CPAP Morbid obesity Sleep apnea COVID-19 Surgical History Hx of colonoscopy Social History Housing: Condominium Patient Tobacco Use Status: Former Tobacco user e-Cigarette/Vaping Use: Never Used Second Hand Smoke Exposure: No service: No 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al status: employed and retired 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: [employer] 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al exposures/hazards: Yes Cognitive needs: No Hearing needs: No Vision needs: No Assessment & Plan Assessment & Plan (1) Obesity: Code(s): E66.9 - Obesity, unspecified Category: Medical Plan: Wt: 121 Kg ( 03/2023 ) 119 kg (01/28), 117 kg (05/29), 114 kg(09/28), 110 kg (11/29) Est kcal needs as per MSJ: 1800 (40% carb, 30% protein/fat) Est fluid needs as per 25-30 ml/d: 3300 Est prot per day as per 1 g/kg bw: 110 Recommend fiber intake : 8-10 g per day and gradually increase to 25-28 g per day for women and 35-38 g for men or as tolerated Recommend sodium intake per day : less than 2000 mg Educated patient on: ( R = reviewed V = verbalizes understanding N/R = needs review N/A = not applicable Food sources of carbohydrate, adequate serving sizes and its role in various health conditions: R Differences between complex carbohydrates a simple carbohydrates, role of fiber in diet: R Lean protein sources of foods: R ,v Differences between types of fats and role in diet (mono on saturated fat fatty acids, saturated fatty acids, trans fats): R Food sources of sodium in salt and healthy modifications for heart health in kidney health: R Vitamins and minerals: R Healthy plate method concept: R Physical activity: Benefits a precaution: R Relaxation:R Patient Instructions: Include omega 3 fiber rich foods (try 1-3 tsp of flaxseed milled with 8-10 oz of water or to the meals ) Continue working on choosing low fat protein foods (not fried, choose baked poultry, skinless, low fat cooking methods) and having small meals, chew foods well Keep hydrated by having water , low sugar beverages 8- 10 cup/d Coding Level of Care Code Nutr Indiv Subseq (89299) Diagnoses Obesity E66.9 Time Spent (min) 30
--- OUTSIDE RECORDS SUMMARY | 2024-11-21 12:40 | XMS_ITS | Patient Health Record ---
Author Organization [facility] Address [address] [facility] [place] [address] Care Team Providers Care Equal Opportunity Representative Name Role Phone Harshad Jose Luis Primary Care Provider Unavailabl e Felipe Lalita Unavailable [phone] Reason For Referral No Information Medications Medication [...] Status W/U Status Risk Notes Problem Bursitis (39187674) Bursitis (727.3) Active confirmed Problem Achilles bursitis (520538810) Achilles Tendonitis Bursitis (726.71) Active confirmed Problem Calcaneal spur (22190312) Calcaneal spur (726.73) Active confirmed Problem Myositis (57885364) Myositis (729.1) Active confirmed Problem Pain in limb (65445116) Pain in Limb (729.5) Active confirmed Problem Plantar fasciitis (039179903) Plantar Fasciitis (728.71) Active confirmed Plan Of Treatment Pending Test Test Name Order Date X ray : Foot, right 3V 07/17/2012 [id number] TENDON SHEATH/LIGAMENT 0 08/28/2012 [id number] TENDON SHEATH/LIGAMENT 0 10/04/[id number] TENDON SHEATH/LIGAMENT 0 11/08/2012 Insurance Providers Payer Name Payer Address Payer Phone Subscriber Number Group Number Insured Name Patient Relationship to Insured Coverage Start Date Coverage End Date Aetna [address] [place] [address] [id number] [phone] CHAVO PICKENS Self - patient is the insured Medical (General) History Medical History History ICD Code anxiety depression thyroid disorder measles chicken pox Surgical History Surgery Date(Month/Year) tubal ligation 1995 oral surgery 2004 bunionectomy 2007
--- OUTSIDE RECORDS SUMMARY | 2024-11-21 12:40 | XMS_ITS | Clinical Summary ---
Author Organization [address] Address [address] [place] [phone] Phone Care Team Providers Care Senior Reservations Agent Name Role Phone Carlyn Ray MD Primary Care Provider [phone] Surgical History Surgery Date Site/Laterality Comments TUBAL [...] is recommended in 1 year. Mammo Location: [facility], [address] [place] [address], [address], . -------- FINAL REPORT -------- Dictated By: Hui Cutler Dictated Date: 04/26/2024 17:14 ET Assigned Physician: Hui Cutler Reviewed and Electronically Signed By: Hui Cutler Signed Date: 04/26/2024 17:28 ET Workstation ID: [id number] Transcribed By: Self Edit Transcribed Date: 04/26/2024 [...] is recommended in 1 year. Mammo Location: [facility], [address] [place] [address], [address], . -------- FINAL REPORT -------- Dictated By: Hui Cutler Dictated Date: 04/26/2024 17:14 ET Assigned Physician: Hui Cutler Reviewed and Electronically Signed By: Hui Cutler Signed Date: 04/26/2024 17:28 ET Workstation ID: [id number] Transcribed By: Self Edit Transcribed Date: 04/26/2024 17:14 ET us Carlyn Ray MD IMG BI PROCEDURES Final Res ult from Last 3 Months or Most Recently Relevant to Health Maintenance Insurance [employer] [employer]ANT[place] Care Teams Senior Reservations Agent Relationship Specialty Start Date End Date Carlyn Ray MD [address] [place] [address] PCP - General Internal Medicine 03/23/19
== END 2024-11-21 11:08 | disposition home or self-care (01) ==
LOC: HO.ENCR 10:21
PROVIDERS: PCP Nurse Practitioner Family; Visit Provider Dietitian, Registered
DX: E66.9 Obesity, unspecified (principal)

== ENCOUNTER → 2024-11-21 10:20 | Outpatient (BNVA) | payer MEDICARE, SELFPAY | PROVIDERS: PCP Nurse Practitioner Family; Visit Provider Dietitian, Registered | DX: E66.9 Obesity, unspecified (principal); Z68.41 Body mass index [BMI] 40.0-44.9, adult | CPT/HCPCS: 97803 ==

== ENCOUNTER 2025-01-10 11:12 | Outpatient (AMB) | payer MEDICARE, SELFPAY ==
[2025-01-10 11:26] VITALS: BP 124/78; PULSE 69; O2SAT 97; BMI 40.2
--- NOTE | 2025-01-10 11:26 | MHC.OFFVIS ---
Vital Signs 01/10/25 11:26 Height 5 ft 3 in Weight 227 lb 1.218 oz BMI 40.2 BP 124/78 Blood Pressure Location Lt brachial Position Sitting Pulse 69 Pulse Source Pulse Oximeter Pulse Oximetry (%) 97 Oxygen Delivery Method Room Air Intake Visit Reasons: Obstructive sleep apnea Intake Note: pt is here for follow up and states she is doing well with cpap. Last Sorter Required: No Allergies white faced hornets Allergy (Unknown, Uncoded 01/10/25 11:29) anaphylaxis Medication List - Last Reconciled 01/10/25 by Wili Daniel MD albuterol sulfate 90 mcg/actuation (Ventolin HFA) 2 puffs inhalation Q6H PRN atorvastatin 40 mg PO BEDTIME biotin 10 mg PO DAILY calcium carbonate-vitamin D3 600 mg-12.5 mcg (500 unit) (Calcium with Vit D3) 1 cap PO BID 90 days levothyroxine 88 mcg PO DAILY lorazepam 0.5 mg PO BEDTIME PRN tirzepatide (weight loss) 10 mg (0.5 mL) subcut QWEEK Do you need a note to return to daycare/school/sports/work: No HPI HPI Obstructive sleep apnea: Details: 69 YEARS OLD VERY PLEASANT FEMALE, KNOWN CASE OF OBSTRUCTIVE SLEEP APNEA, COMES WITH HER WHO ALSO USES CPAP . HAS BEEN VERY COMPLIANT TO USING CPAP. WHEN TRAVELING SHE USES TRAVEL CPAP UNIT WHICH DOES NOT TRANSMIT THE COMPLIANCE REPORT. SHE ADMITS THAT WITHOUT USING THE CPAP SHE WOULD NOT BE ABLE TO SLEEP. SHE HAS OCCASIONAL WHEEZE AND COUGH AND USES ALBUTEROL BUT ONLY VERY RARELY. SHE IS TRYING TO LOSE WEIGHT AND CURRENTLY SHE IS ON TIRZEPATIDE THERAPY , SINCE HER LAST VISIT SHE HAS LOST ABOUT 13 LB OF WEIGHT. 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al exposures/hazards: Yes Cognitive needs: No Hearing needs: No Vision needs: No Review of Systems Const All systems reviewed & are unremarkable except as noted in HPI and below Denies snoring Eyes Reports no additional complaints ENT Reports no additional complaints Card Denies chest pain, Denies syncope, Denies irregular heart rhythm and Denies dyspnea Resp Denies cough, Denies dyspnea, Denies snoring and Denies wheezing GI Reports no additional complaints Reports no additional complaints Musc Reports no additional complaints Skin/Breast Reports system reviewed and no additional complaints, except as documented Neuro Reports no additional complaints and Denies syncope Psych Reports no additional complaints Endo Reports no additional complaints Jamarcus/Lymph Reports no additional complaints Aller/Immun Reports no additional complaints and Denies wheezing Physical Exam Vital Signs: Last Vital Signs Pulse 69 01/10/25 11:26 BP 124/78 01/10/25 11:26 Pulse Ox 97 01/10/25 11:26 Oxygen Delivery Method Room Air 01/10/25 11:26 BMI result Body Mass Index 40.2 Const General: healthy appearing (EXCEPT FOR BEING OVERWEIGHT), comfortable, no acute distress, alert and awake Orientation/consciousness: patient oriented x3 HEENT Head: Yes normal to inspection General nose exam: No nasal polyps present and No nasal discharge present Face and sinus: Yes sinuses nontender Mouth: oropharynx normal Throat: Yes posterior oropharynx normal Eyes General: appearance normal, both eyes and all related structures Neck Neck: Yes normal visual inspection, Yes no lymphadenopathy, Yes trachea midline and Yes no JVD Thyroid: Thyroid normal Chest Chest palpation & inspection: normal inspection of the chest, normal palpation of entire chest wall and no tenderness Resp Effort & Inspection: normal respiratory effort Auscultation: clear to auscultation bilaterally, no crackles, no rhonchi and no wheezes Cardio Palpation: normal PMI Rate: regular rate Rhythm: regular rhythm Heart sounds: no gallops and no murmurs Peripheral pulses: Peripheral pulses 2+ throughout GI Palpation (GI): Soft to palpation, nontender, No hepatosplenomegaly present and no masses Auscultation: normal bowel sounds Back/Spine/Pelvis Thoracic/Lumbar Spine: thoracic and lumbar spine normal to inspection Skin General skin exam: no rashes or lesions noted Neuro General: patient oriented x3 and no focal motor deficits Cranial nerves: Yes CN's II-XII intact bilaterally Extrem General: Yes normal to inspection, Yes no clubbing, cyanosis or edema and Yes no calf tenderness Psych Appearance: grossly normal and well kempt Speech and movement: Normal speech and movement present Results Reviewed Results Reviewed: COMPLIANCE REPORT FOR THE LAST 30 NIGHTS REVIEWED AND SHE HAS USED 21/30 NIGHTS, 70%. THE OTHER 9 NIGHTS SHE WAS USING THE TRAVEL UNIT WHICH IS NOT SHOWN IN THIS COMPLIANCE REPORT . EVERY NIGHT USING. UP TO 7 HOURS 49 MINUTES AND SLEEPING GOOD RESIDUAL AHI 2.0 Assessment & Plan Assessment & Plan (1) REAL on CPAP: Comment: LONGSTANDING HISTORY OF OBSTRUCTIVE SLEEP APNEA EXPECTED FROM HER BODY SIZE. HAS BEEN USING CPAP VERY REGULARLY AND SLEEPING WELL, CPAP DEVICE IS WORKING VERY WELL, SHE USES EVERY NIGHT BETWEEN 7-8 HOURS AND HAS EXCELLENT SLEEP. Code(s): G47.33 - Obstructive sleep apnea (adult) (pediatric) Category: Medical Plan: COMMENDED FOR GOOD COMPLIANCE . CONTINUE TO USE CPAP EVERY NIGHT AND SLEEP WELL. (2) Obesity: Comment: PATIENT REMAINS GROSSLY OBESE. CURRENTLY ON TIRZEPATIDE THERAPY. ALSO WATCHES HER DIET. HAS LOST 13-14 LB IN THE LAST 6 MONTHS Code(s): E66.9 - Obesity, unspecified Category: Medical Plan: COMMENDED FOR LOSING WEIGHT AND ADVISED TO CONTINUE LOSING MORE WEIGHT. Coding Level of Care Code Est Pt Level 3 (52658) Diagnoses REAL on CPAP G47.33 Obesity E66.9
--- OUTSIDE RECORDS SUMMARY | 2025-01-10 13:55 | XMS_ITS | Patient Health Record ---
Author Organization [facility] Address [address] [facility] [place] [address] Care Team Providers Care Turkey Pinner Name Role Phone Harshad Jose Luis Primary Care Provider Unavailabl e Felipe Lalita Unavailable [phone] Reason For Referral No Information Medications Medication [...] Status W/U Status Risk Notes Problem Bursitis (86690480) Bursitis (727.3) Active confirmed Problem Achilles bursitis (132230317) Achilles Tendonitis Bursitis (726.71) Active confirmed Problem Calcaneal spur (05669338) Calcaneal spur (726.73) Active confirmed Problem Myositis (37372290) Myositis (729.1) Active confirmed Problem Pain in limb (44395799) Pain in Limb (729.5) Active confirmed Problem Plantar fasciitis (140174707) Plantar Fasciitis (728.71) Active confirmed Plan Of Treatment Pending Test Test Name Order Date X ray : Foot, right 3V 07/17/2012 [id number] TENDON SHEATH/LIGAMENT 0 08/28/2012 [id number] TENDON SHEATH/LIGAMENT 0 10/04/201230918,[id number] TENDON SHEATH/LIGAMENT 0 11/08/2012 Insurance Providers Payer Name Payer Address Payer Phone Subscriber Number Group Number Insured Name Patient Relationship to Insured Coverage Start Date Coverage End Date Aetna [address] [place] [address] [id number] [phone] CHAVO PICKENS Self - patient is the insured Medical (General) History Medical History History ICD Code anxiety depression thyroid disorder measles chicken pox Surgical History Surgery Date(Month/Year) tubal ligation 1995 oral surgery 2004 bunionectomy 2007
--- OUTSIDE RECORDS SUMMARY | 2025-01-10 13:55 | XMS_ITS | Clinical Summary ---
Author Organization [address] Address [address] [place] [address] Phone Care Team Providers Care Instrument Adjuster Name Role Phone Carlyn Ray MD Primary [...] Name Clin Term Term Plan of Treatment Upcoming Encounters Date Type Department Care Team ([facility] Contact Info) Description 04/29/2025 8:20 AM EST Appointment Radiology Department - [address] [phone] Health Maintenance Due Date Last Done Comments Colorectal Cancer Screening: Colonoscopy 1955 Zoster Vaccines (1 of 2) 05/22/2005 Cholesterol Screening (Lipid Panel) 02/13/2022 Falls Risk Assessment 02/13/2022 Hepatitis C [...] is recommended in 1 year. Mammo Location: [facility], [address] [place] [address], [address], . -------- FINAL REPORT -------- Dictated By: Hui Cutler Dictated Date: 04/26/2024 17:14 ET Assigned Physician: Hui Cutler Reviewed and Electronically Signed By: Hui Cutler Signed Date: 04/26/2024 17:28 ET Workstation ID: [id number] Transcribed By: Self Edit Transcribed Date: 04/26/2024 [...] scattered areas of fibroglandular density. Procedure Note Hiu Cutler MD - 04/26/2024 CLINICAL: 68 years [...] is recommended in 1 year. Mammo Location: [facility], [address] [place] [address], [address], . -------- FINAL REPORT -------- Dictated By: Hui Cutler Dictated Date: 04/26/2024 17:14 ET Assigned Physician: Hui Cutler Reviewed and Electronically Signed By: Hui Cutler Signed Date: 04/26/2024 17:28 ET Workstation ID: [id number] Transcribed By: Self Edit Transcribed Date: 04/26/2024 17:14 ET Carlyn Ray MD IMG BI PROCEDURES Final Res ult from Last 3 Months or Most Recently Relevant to Health Maintenance Insurance [employer]IC[place] AD[place]ANT[place] Care Teams Instrument Adjuster Relationship Specialty Start Date End Date Carlyn Ray MD [address] [place] [address] PCP - General Internal Medicine 03/23/19
== END 2025-01-10 11:55 | disposition home or self-care (01) ==
LOC: HO.HPS 11:12
PROVIDERS: PCP Nurse Practitioner Family; Visit Provider Internal Medicine
DX: G47.33 Obstructive sleep apnea (adult) (pediatric) (principal); E66.9 Obesity, unspecified
CPT/HCPCS: 99213

== ENCOUNTER → 2025-01-10 11:12 | Outpatient (BNVA) | payer MEDICARE, SELFPAY | PROVIDERS: PCP Nurse Practitioner Family; Visit Provider Internal Medicine | DX: G47.33 Obstructive sleep apnea (adult) (pediatric) (principal); E66.9 Obesity, unspecified | CPT/HCPCS: 99212 ==

== ENCOUNTER 2025-02-20 10:12 | Outpatient (AMB) | payer MEDICARE, SELFPAY ==
--- NOTE | 2025-02-20 10:38 | A.OFFVIS_ITS ---
VS Expanded 02/20/25 10:39 Height 5 ft 3 in Weight 219 lb 0.8 oz BMI 38.8 Intake Visit Reasons: obesity Allergies white faced hornets Allergy (Unknown, Uncoded 01/10/25 11:29) anaphylaxis Nutrition Presentation Details: Pt presents for MNT f/u for obesity Patient reports doing well, feeling good. Patient reports choosing healthier food options. Keeping physically 10 minutes daily ( treadmill) Food frequency Fruits 2-3 a day Dairy 2-3/d Vegetables: 3-4 day Fish once to twice a week Beverages: Water, tea, coffee: Fluid per day 36-60 oz Alcohol 0 to once a month Smoking: Does not smoke Patient reports taking a daily multivitamin BS Monitoring Most Recent Diabetes Results: Cholesterol, (<200) 176 mg/dL 09/18/24 HDL Cholesterol, (>40) 61 mg/dL 09/18/24 Triglycerides, (<150) 119 mg/dL 09/18/24 Creatinine, (0.5-1.4) 0.65 mg/dL 09/18/24 BUN, (9-16) 13 mg/dL 09/18/24 Sodium, (135-145) 142 mmol/L 09/18/24 Potassium, (3.3-5.1) 4.6 mmol/L 09/18/24 Chloride, (96-108) 105 mmol/L 09/18/24 Carbon Dioxide, (22-29) 28 mmol/L 09/18/24 Calcium, (8.4-10.2) 9.4 mg/dL 09/18/24 AST, (5-31) 25 U/L 09/18/24 ALT, (0-31) 21 U/L 09/18/24 Total Protein, (6.5-8.0) 7.1 g/dL 09/18/24 Albumin, (3.5-5.0) 4.4 g/dL 09/18/24 JKF-Eqcdzyd-Mg.Jeor Equation Height: 5 ft 3 in Weight: 219 lb Resting Metabolic Rate: 1492.02 Calculated Activity Level: Sedentary Calories Needed to Maintain Weight: 1790.42 [facility] Medical History REAL on CPAP Morbid obesity Sleep apnea COVID-19 Surgical History Hx of colonoscopy Social History Housing: Condominium Patient Tobacco Use Status: Former Tobacco user e-Cigarette/Vaping Use: Never Used Second Hand Smoke Exposure: No service: No 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al status: employed and retired 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al exposures/hazards: Yes Cognitive needs: No Hearing needs: No Vision needs: No Assessment & Plan Assessment & Plan (1) Obesity: Code(s): E66.9 - Obesity, unspecified Category: Medical Plan: Wt: 121 Kg ( 03/2023 ) 119 kg (01/28), 117 kg (05/29), +[id number] kg(09/28), 110 kg (11/29), 99 kg(02/28) Est kcal needs as per MSJ: 1800 (40% carb, 30% protein/fat) Est fluid needs as per 25-30 ml/d: 3000 Est prot per day as per 1 g/kg bw: 100 Recommend fiber intake : 8-10 g per day and gradually increase to 25-28 g per day for women and 35-38 g for men or as tolerated Recommend sodium intake per day : less than 2000 mg Educated patient on: ( R = reviewed V = verbalizes understanding N/R = needs review N/A = not applicable * Food sources of carbohydrate, adequate serving sizes and its role in various health conditions: R, V * Differences between complex carbohydrates a simple carbohydrates, role of fiber in diet: R ,V * Lean protein sources of foods: R ,v * Differences between types of fats and role in diet (mono on saturated fat fatty acids, saturated fatty acids, trans fats): R,v * Food sources of sodium in salt and healthy modifications for heart health in kidney health: R,V * Vitamins and minerals: R,V * Healthy plate method concept: R ,V * Physical activity: Benefits a precaution: R,V * Relaxation:R Patient Instructions: Continue working on having 3 balanced meals a day, following the healthy plate method Keep hydrated including water, low sugar beverages, Herb or fruit infused Flavors Include foods with anti inflammatory properties (ranjit, cloves, garlic, vegetables, herbs) Maintain physically active as able Coding Level of Care Code Nutr Indiv Subseq (45323) Diagnoses Obesity E66.9 Time Spent (min) 30
[2025-02-20 10:39] VITALS: BMI 38.8
--- OUTSIDE RECORDS SUMMARY | 2025-02-20 12:32 | XMS_ITS | Clinical Summary ---
Author Organization [address] Address [address] [place] [address] Phone Care Team Providers Care Junior Estimator Name Role Phone Carlyn Ray MD Primary [...] Upcoming Encounters Date Type Department Care Team ([facility] Contact Info) Description 04/29/2025 8:20 AM EST Appointment Radiology Department - [address] [phone] Health Maintenance Due Date Last Done Comments [...] is recommended in 1 year. Mammo Location: [facility], [address] [place] [address], [address], . -------- FINAL REPORT -------- Dictated By: Hui Cutler Dictated Date: 04/26/2024 17:14 ET Assigned Physician: Hui Cutler Reviewed and Electronically Signed By: Hui Cutler Signed Date: 04/26/2024 17:28 ET Workstation ID: [id number] Transcribed By: Self Edit Transcribed Date: 04/26/2024 [...] is recommended in 1 year. Mammo Location: [facility], [address] [place] [address], [address], . -------- FINAL REPORT -------- Dictated By: Hui Cutler Dictated Date: 04/26/2024 17:14 ET Assigned Physician: Hui Cutler Reviewed and Electronically Signed By: Hui Cutler Signed Date: 04/26/2024 17:28 ET Workstation ID: [id number] Transcribed By: Self Edit Transcribed Date: 04/26/2024 17:14 ET Carlyn Ray MD IMG BI PROCEDURES Final Res ult from Last 3 Months or Most Recently Relevant to Health Maintenance Insurance [employer] - [place] MEDICARE ADVANTAGE Care Teams Junior Estimator Relationship Specialty Start Date End Date Carlyn Ray MD [address] [place] [address] PCP - General Internal Medicine 03/23/19
--- OUTSIDE RECORDS SUMMARY | 2025-02-20 12:32 | XMS_ITS | Patient Health Record ---
Author Organization [facility] Address [address] [facility] [place] [address] Care Team Providers Care Utility Worker Forge Name Role Phone Harshad Jose Luis Primary Care Provider Unavailabl e Felipe Lalita Unavailable [phone] Reason For Referral No Information Medications Medication [...] Status W/U Status Risk Notes Problem Bursitis (82331628) Bursitis (727.3) Active confirmed Problem Achilles bursitis (416181166) Achilles Tendonitis Bursitis (726.71) Active confirmed Problem Calcaneal spur (74874467) Calcaneal spur (726.73) Active confirmed Problem Myositis (74086828) Myositis (729.1) Active confirmed Problem Pain in limb (46406541) Pain in Limb (729.5) Active confirmed Problem Plantar fasciitis (634573549) Plantar Fasciitis (728.71) Active confirmed Plan Of Treatment Pending Test Test Name Order Date X ray : Foot, right 3V 07/17/2012 [id number] TENDON SHEATH/LIGAMENT 0 08/28/2012 [id number] TENDON SHEATH/LIGAMENT 0 10/04/201276873,[id number] TENDON SHEATH/LIGAMENT 0 11/08/2012 Insurance Providers Payer Name Payer Address Payer Phone Subscriber Number Group Number Insured Name Patient Relationship to Insured Coverage Start Date Coverage End Date Aetna [address] [place] [address] [id number] [phone] CHAVO PICKENS Self - patient is the insured Medical (General) History Medical History History ICD Code anxiety depression thyroid disorder measles chicken pox Surgical History Surgery Date(Month/Year) tubal ligation 1995 oral surgery 2004 bunionectomy 2007
[2025-02-20 14:31] VITALS: BMI 38.8
== END 2025-02-20 10:53 | disposition home or self-care (01) ==
LOC: HO.ENCR 10:13
PROVIDERS: PCP Nurse Practitioner Family; Visit Provider Dietitian, Registered
DX: E66.9 Obesity, unspecified (principal)

== ENCOUNTER → 2025-02-20 10:12 | Outpatient (BNVA) | payer MEDICARE, SELFPAY | PROVIDERS: PCP Nurse Practitioner Family; Visit Provider Dietitian, Registered | DX: E66.9 Obesity, unspecified (principal); Z68.38 Body mass index [BMI] 38.0-38.9, adult; Z71.3 Dietary counseling and surveillance | CPT/HCPCS: 97803 ==